=== PATIENT | male | born 1945 | race Caucasian/White ===

== ENCOUNTER 2019-12-19 09:56 | Inpatient (IN) | payer OTHER ==
[2019-12-19] MEDS ORDERED: Naloxone HCl 2 mg/2 ml Syringe ONE (10:14)
[2019-12-19 10:33] LABS: #Basophils 0.1 thou/uL (0.0-0.2); #Monocytes 1.4 thou/uL (0.11-0.59); #Neutrophils 11.8 thou/uL (1.40-6.50); %Basophils 0.5 % (0.0-1.0); %Eosinophils 0.3 % (0.0-10.0); %Lymphocytes 7.2 % (21.0-51.0); %Monocytes 9.5 % (0.0-10.0); %Neutrophils 82.6 % (42.0-75.0); Hemoglobin 13.3 g/dL (14.0-18.0); Mean Corpuscular HGB CONC 34.4 g/dL (32.0-36.0); Mean Corpuscular Hemoglobin 32.6 pg (27.0-31.0); Mean Corpuscular Volume 94.8 fL (78.0-98.0); Mean Platelet Volume 7.1 fL (7.4-10.4); Platelet Count 209 thou/uL (130-400); RBC Distribution Width 14.2 % (11.5-14.5); Red Blood Cell (RBC) Count 4.08 mill/uL (4.70-6.10); White Blood Cell (WBC) Count 14.3 thou/uL (4.8-10.8)
--- NOTE | 2019-12-19 10:43 | RAD ---
CHEST ONE VIEW: History: Hypoxia. Comparison: CT chest for reference, from 2016. FINDINGS: Heart size is enlarged. Abnormal opacities throughout the lungs, greatest in the lower lobes, concern ing for underlying pulmonary fibrosis. No acute osseous abnormality. IMPRESSION: 1. Moderate cardiomegaly. 2. Background pulmonary fibrosis concerning for superimposed lower lobe pneumonia. Follow up two view s chest in full inspiration recommended. POS: [facility]
[2019-12-19] MEDS ORDERED: methylPREDNISolone Sod Succ/PF 125 MG/2 ML VIAL ONE (10:53)
[2019-12-19] MEDS ORDERED: Azithromycin 500 MG VIAL ONE (10:53)
[2019-12-19] MEDS ORDERED: cefTRIAXone\\ROCEPHIN 2 GM VIAL ONE (10:53)
[2019-12-19 10:55] LABS: ALT (SGPT) 11 U/L (8-55); AST (SGOT) 30 U/L (5-34); Albumin 3.8 g/dL (3.4-4.8); Alkaline Phosphatase 74 U/L (40-110); Anion Gap 13 mmol/L (10-20); BUN (Urea Nitrogen) 20 mg/dL (8.4-25.7); Bilirubin, Total 1.2 mg/dL (0.2-1.2); Calc. Creatinine Clearance 0 mL/min (70-130); Calcium 8.9 mg/dL (7.8-10.44); Carbon Dioxide 23 mmol/L (23-31); Chloride 108 mmol/L (98-107); Estimated GFR-MDRD 58; Globulin 3.9 g/dL (2.4-3.5); Glucose 138 mg/dL (83-110); Potassium 3.2 mmol/L (3.5-5.1); Protein, Total 7.7 g/dL (5.8-8.1); Sodium 141 mmol/L (136-145)
[2019-12-19 11:00] LABS: Actual Bicarbonate (HCO3a) 21.9 mEq/L (22-28); Analyzer IN Cardio ER; Base Excess (BEa) -1.9 mEq/L (-2.0 to +3.0); CO2 Tension 34.6 mmHg (35.0-45.0); Calcium, Ionized 1.14 mmol/L (1.12-1.30); Carboxyhemoglobin (COHb) 1.7 gm% (0.0-3.0); Hemoglobin (Hb) 13.3 g/dL (14.0-18.0); Potassium - ABG Lab 3.14 mmol/L (3.70-5.30); pH, Arterial 7.42 (7.35-7.45)
[2019-12-19 11:02] LABS: Puncture Site RRA
[2019-12-19 11:17] LABS: CKMB 0.8 ng/mL (0-6.6)
[2019-12-19] MEDS ORDERED: Rocuronium Bromide 10 MG/ML (10ML VIAL) ONE (11:38)
[2019-12-19] MEDS ORDERED: Aspirin Chewable 81 MG TAB ONE (12:25)
[2019-12-19] MEDS ORDERED: Senokot S 8.6-50 MG TAB PO PRN (12:29)
[2019-12-19] MEDS ORDERED: Ondansetron ODT 4 MG TAB PO PRN (12:29)
[2019-12-19] MEDS ORDERED: Potassium Citrate 10 MEQ TAB PO SCH (13:30)
[2019-12-19 13:43] LABS: Lactic Acid 3.3 mmol/L (0.5-2.2)
[2019-12-19 16:06] LABS: Bacteria/HPF None Seen HPF (None Seen); Bilirubin Negative (Negative); Blood, Urine Negative (Negative); Clarity Clear (Clear); Glucose, Urine (Dipstick) Normal (Negative); Leukocyte Negative Leu/uL (Negative); Nitrite Negative (Negative); Protein, Urine (Dipstick) 50 mg/dL (Neg-Trace); RBC/HPF 0-3 HPF (0-3); Squamous Epithelial None Seen HPF (0-3); Urobilinogen Normal mg/dL (Less than 2); WBC/HPF 0-3 HPF (0-3)
[2019-12-19 17:51] LABS: Troponin I 0.022 ng/mL (< 0.028)
[2019-12-19] MEDS ORDERED: Lorazepam 2 MG/ML VIAL SLOW IVP SCH (18:00)
[2019-12-19] MEDS: methylPREDNISolone Sod Succ 40 MG VIAL IVP SCH (18:06)
[2019-12-19] MEDS ORDERED: Lorazepam 2 MG/ML VIAL SLOW IVP PRN (20:19)
--- NOTE | 2019-12-19 20:43 | HP ---
CHIEF COMPLAINT: Respiratory failure. HISTORY OF PRESENT ILLNESS: A 74-year-old male with a history of recent pneumonia treated in the beginning of November at [place] and discharged with Augmentin for 10 days. Since then, his symptoms did not resolve completely. Two days ago, he went to attend an 88-year-old lady's birthday. After he returned back, he felt quite congested and yesterday, he had some postnasal drip and last evening, had a subjective temperature of 100.8. He is on home oxygen at 2 L as needed. He usually goes to [place] at [place] since his home is close by and his son works as EMS, he has been brought here. When he came to the ER, he was hypoxic at 60% with 2 L. His lactic acid was elevated at 2.6 [place] [id number] and tachypnea. Sepsis alert was called. Chest x-ray showed pulmonary fibrosis with superimposed lower lobe pneumonia bilaterally. Flu test was not done. The patient will be admitted in IMCU and will continue with the BiPAP. The patient does have an appointment with the mine administrator supervisor in [place] for pulmonary function test in 3 weeks' time. He has not had any formal sleep study done in the past. REVIEW OF SYSTEMS: Denies any headache or blurriness. No recent productive cough. No chest pain, orthopnea, PND, or lower extremity edema. He denies nausea, vomiting, abdominal pain, constipation, diarrhea, hematuria, dysuria, or hematochezia. Rest of review of systems is negative. ALLERGIES: HE IS ALLERGIC TO MOXIFLOXACIN. PAST MEDICAL HISTORY: Most of the information gathered from the . The patient goes to [place]. He is not diabetic. No history of ND or stroke in the past. He does have PTSD. HOME MEDICATIONS: 1. Venlafaxine 75 mg daily. 2. Coenzyme Q10. 3. Thiamine B1. 4. Pregabalin. 5. Lyrica 400 mg twice a day. 6. Omeprazole 20 mg daily. 7. Niacin. 8. Multivitamin. 9. [place] as needed. 10. Proscar 5 mg daily. 11. Fexofenadine 1 tablet daily. 12. Diltiazem 360 mg daily. 13. Flexeril as needed. 14. Lipitor 20 mg daily. SOCIAL HISTORY: He quit smoking when he was very young. No alcohol use. Lives with his locally. FAMILY HISTORY: Father had asbestosis. Mother had breast cancer. PHYSICAL EXAMINATION: GENERAL: The patient is alert and oriented. He is on BiPAP currently. CARDIAC: Has congestion and upper respiratory infection. CARDIOVASCULAR: Regular rate and rhythm without murmurs, rubs, or gallops. He has significant wheezing. ABDOMEN: A little protuberant, but soft, nontender, nondistended. Good bowel sounds. EXTREMITIES: Did not appreciate any pitting edema or rash. LABORATORY DATA: His white count is 14.3, hemoglobin 13.3. Platelets 209,000. Potassium 3.2, sodium 141, creatinine 1.22. Lactic acid 2.6. His troponin is 0.04, second set 0.04. A chest x-ray again, multilobar infiltrate. IMPRESSION AND PLAN: 1. This is a 74-year-old male with a history of posttraumatic stress disorder, presenting with acute hypoxic respiratory failure. 2. Severe sepsis secondary to respiratory failure with pneumonia. 3. Hypoxia with saturations in the 60s despite being on 2 L oxygen. 4. Leukocytosis. 5. Mild hypokalemia. 6. Elevated troponin/abnormal troponin/metabolic mismatch type 2 demand ischemia. The patient will be admitted in the intermediate care unit. We will wean off the BiPAP. Ceftriaxone and Zithromax to cover for community-acquired pneumonia. We will be checking the flu. He had symptoms of congestion for the last 2 days. So, may not be eligible to take Tamiflu, but will follow through. No cultures have been done. We will follow the clinical progression. Once he is stable, he needs followup with a mine administrator supervisor for sleep study as well as pulmonary function test. Deep vein thrombosis prophylaxis, Lovenox. Full code. Job ID: [id number] [facility]
[2019-12-19 20:48] LABS: Actual Bicarbonate (HCO3a) 22.9 mEq/L (22-28); Base Excess (BEa) -1.9 mEq/L (-2.0 to +3.0); Calcium, Ionized 1.18 mmol/L (1.12-1.30); Carboxyhemoglobin (COHb) 1.8 gm% (0.0-3.0); Hemoglobin (Hb) 13.3 g/dL (14.0-18.0); Potassium - ABG Lab 3.65 mmol/L (3.70-5.30); pH, Arterial 7.39 (7.35-7.45)
[2019-12-19 20:51] LABS: Puncture Site RR
[2019-12-19] MEDS ORDERED: Furosemide 40 MG/4 ML VIAL IVP SCH (21:03)
[2019-12-19] MEDS ORDERED: Morphine 4 MG/ML VIAL ONE (21:06)
[2019-12-19] MEDS ORDERED: Morphine 4 MG/ML VIAL SLOW IVP PRN (21:07)
[2019-12-19] MEDS: Pregabalin 50 MG CAP PO SCH (22:00)
[2019-12-19] MEDS: Cefepime 2 GM in Sodium Chloride 0.9% 100 ML IVPB SCH (22:05)
[2019-12-19] MEDS: hydrALAZINE 20 MG/ML VIAL SLOW IVP PRN (22:38)
[2019-12-19] MEDS ORDERED: Ventilator Sedation Protocol 1 EACH FS ONE (23:51)
[2019-12-20] MEDS ORDERED: DISCONTINUE PREVIOUS NARCOTIC PAIN MEDICATIONS AND BENZODIAZEPINES FS SCH (00:05)
[2019-12-20] MEDS ORDERED: Morphine 2 MG/ML SYRINGE SLOW IVP PRN (00:05)
[2019-12-20] MEDS ORDERED: Fentanyl BOLUS 250 ML IVPB PRN (00:05)
[2019-12-20] MEDS ORDERED: Propofol BOLUS 1,000 MG/100 ML VIAL IV PRN (00:05)
[2019-12-20] MEDS: methylPREDNISolone Sod Succ 40 MG VIAL IVP SCH ×5 (00:55→23:04)
[2019-12-20 01:13] LABS: Actual Bicarbonate (HCO3a) 23.7 mEq/L (22-28); Base Excess (BEa) -2.5 mEq/L (-2.0 to +3.0); CO2 Tension 46.5 mmHg (35.0-45.0); Calcium, Ionized 1.13 mmol/L (1.12-1.30); Carboxyhemoglobin (COHb) 1.9 gm% (0.0-3.0); Hemoglobin (Hb) 12.6 g/dL (14.0-18.0); O2 Tension (PaO2) 100.2 mmHg (> 70.0); pH, Arterial 7.33 (7.35-7.45)
[2019-12-20 01:24] LABS: ALV-art Gradient 483.375 (0-20); Puncture Site RR
[2019-12-20] MEDS ORDERED: Midazolam HCl 2 mg/2 ml Vial SLOW IVP SCH (02:00)
[2019-12-20] MEDS ORDERED: Rocuronium Bromide 10 MG/ML (10ML VIAL) IVP SCH (02:15)
[2019-12-20] MEDS: Rocuronium Bromide 10 MG/ML (10ML VIAL) IVP PRN ×5 (02:50→22:01)
[2019-12-20] MEDS ORDERED: Midazolam HCl 2 mg/2 ml Vial ONE (03:11)
[2019-12-20] MEDS: Propofol 1,000 MG/100 ML VIAL IV PRN ×3 (05:51→20:50)
[2019-12-20 05:53] LABS: Hemoglobin 12.1 g/dL (14.0-18.0); Mean Corpuscular HGB CONC 33.8 g/dL (32.0-36.0); Mean Corpuscular Hemoglobin 32.5 pg (27.0-31.0); Mean Corpuscular Volume 96.2 fL (78.0-98.0); Mean Platelet Volume 7.4 fL (7.4-10.4); Platelet Count 173 thou/uL (130-400); RBC Distribution Width 14.1 % (11.5-14.5); Red Blood Cell (RBC) Count 3.72 mill/uL (4.70-6.10); White Blood Cell (WBC) Count 18.2 thou/uL (4.8-10.8)
[2019-12-20 06:26] LABS: Anion Gap 12 mmol/L (10-20); BUN (Urea Nitrogen) 24 mg/dL (8.4-25.7); Calc. Creatinine Clearance 76 mL/min (70-130); Calcium 8.3 mg/dL (7.8-10.44); Carbon Dioxide 25 mmol/L (23-31); Chloride 109 mmol/L (98-107); Estimated GFR-MDRD 71; Glucose 162 mg/dL (83-110); Potassium 3.7 mmol/L (3.5-5.1); Sodium 142 mmol/L (136-145)
[2019-12-20 07:01] LABS: Band 19 % (5-11); Eosinophils 1 % (0-10); Lymphocytes 1 % (21-51); MDiff Complete? YES; Monocytes 2 % (0-10); Neutrophil 77 % (42-75)
[2019-12-20 07:44] LABS: Actual Bicarbonate (HCO3a) 25.4 mEq/L (22-28); Base Excess (BEa) 0.2 mEq/L (-2.0 to +3.0); CO2 Tension 43.4 mmHg (35.0-45.0); Carboxyhemoglobin (COHb) 1.9 gm% (0.0-3.0); Hemoglobin (Hb) 12.2 g/dL (14.0-18.0); O2 Tension (PaO2) 84.2 mmHg (> 70.0); Potassium - ABG Lab 3.57 mmol/L (3.70-5.30); pH, Arterial 7.39 (7.35-7.45)
[2019-12-20 07:48] LABS: Puncture Site RRAD
[2019-12-20] MEDS ORDERED: Prevnar 13-Val Conj/PF 0.5 ML SYRINGE IM ONE (09:00)
[2019-12-20] MEDS ORDERED: Enoxaparin Sodium 40 MG/0.4 ML SYRINGE SC SCH (09:00)
[2019-12-20] MEDS ORDERED: Bupropion 150 MG SR TAB PO SCH (09:00)
[2019-12-20] MEDS ORDERED: FLU VACC TS2019-20(65YR UP)/PF 180 MCG/0.5 ML SYRINGE IM ONE (09:00)
--- NOTE | 2019-12-20 09:22 | CON ---
DATE OF CONSULTATION: 12/19/2019 HISTORY OF PRESENT ILLNESS: David James is a 74-year-old male who is primarily cared for at the [place]. I spent a great deal of time taking a history from the and it sounds like Mr. James has some degree of pulmonary fibrosis, although she has been told that his testing has been stable for three years. He presents with a couple of days of shortness of breath. He was treated in November at the [place] for pneumonia. He never fully recovered from that. They traveled out of town to [place], I believe, to attend a birthday alliance party for a friend. He became febrile and subsequently started developing shortness of breath and was brought here and was admitted on BiPAP. PAST MEDICAL HISTORY: Otherwise, remarkable for stress disorder related to service in [place]. He has no occupational history. He was recently radiated at [facility] for prostate cancer. FAMILY HISTORY: Negative for lung disease in early age. SOCIAL HISTORY: Non contributory. REVIEW OF SYSTEMS: 10 point review of systems completed, otherwise negative. MEDICATIONS: Have been reviewed. ALLERGIES: REPORTS ALLERGIES TO MOXIFLOXACIN. PHYSICAL EXAMINATION: GENERAL: He is afebrile. Heart rate is 90, respiratory rates in the 30s, oximetry, on BiPAP is in the low 90s. HEENT: Pupils are equal. Sclerae are anicteric. NECK: Supple. LUNGS: Remarkable for diffuse crackles. HEART: Regular rhythm. No S3. ABDOMEN: Soft and nontender. EXTREMITIES: Without clubbing, cyanosis, or edema. NEURO: Grossly nonfocal. LABORATORY DATA: Sodium 141, potassium 3.2, chloride 108, bicarb 23, BUN 20, creatinine 1.22. I ordered a BNP earlier which came back 420. White count 14.3 , hemoglobin 13.3, platelets 209,000. Blood gas earlier today 7.42, CO2 of 34, pO2 of 61. This evening, 7.39, CO2 of 39, pO2 of 52. Chest radiograph shows an elevated right hemidiaphragm and a generous cardiac silhouette with increased interstitial markings at both lung bases. Reviewing old records, I found an operative report from an L1-L2 laminectomy done by Dr. Enrique in 2016, found also a chest CT in 2016, which showed an ascending aorta of 4.3 cm. His says this was worked up at the [place] and he was told he does not have an ascending aneurysm. Had coronary calcifications with an increase in interstitial markings to a mild degree back in 2016. He had gallstones and some calcified granulomas in his chest as well. IMPRESSION: Probable pulmonary fibrosis with superimposed infectious process. Antibiotics and steroids were ordered. He will continue with nebulizer treatments. He will be given a little bit of morphine for the anxiety he is experiencing wearing the BiPAP. Hopefully, we will see significant improvement overnight. __ is reasonable to give him one dose of IV Lasix and also reasonable to check an echocardiogram in the morning. This is a 50 minute consult, with greater than 50% of time spent on unit coordinating care. Job ID: [id number] [email or web address]
[2019-12-20] MEDS: Cefepime 2 GM in Sodium Chloride 0.9% 100 ML IVPB SCH ×2 (09:23→20:50)
[2019-12-20] MEDS: Atorvastatin Calcium 20 MG TAB PO SCH (10:26)
[2019-12-20] MEDS: Loratadine 10 MG TAB PO SCH (10:27)
[2019-12-20] MEDS: Finasteride 5 MG TAB PO SCH (10:27)
[2019-12-20] MEDS: Pregabalin 50 MG CAP PO SCH ×2 (10:28→20:54)
--- NOTE | 2019-12-20 10:51 | RAD ---
FRONTAL RADIOGRAPH CHEST: 12/20/2019 HISTORY: Ventilated patient. COMPARISON: 12/19/2019 FINDINGS: A new endotracheal tube is present, terminating over the tracheal air column, in proper position. The re is no pneumothorax. There is extensive worsening interstitial and alveolar opacity throughout both lungs. Multifocal new consolidative change noted within the right lung, and there is worsening multi focal consolidation within the left lung. IMPRESSION: New endotracheal tube in proper position. Extensive nonspecific worsening interstitial and alveolar o pacity throughout both lungs. This could be related to pulmonary edema, aspiration or infectious pneu monitis. POS: [facility]
[2019-12-20] MEDS: Potassium Chloride 20 MEQ TAB PO SCH (11:25)
[2019-12-20] MEDS: Lorazepam 2 MG/ML VIAL SLOW IVP PRN ×4 (11:38→21:22)
--- NOTE | 2019-12-20 12:07 | PDOC.HOSPP ---
- Subjective Subjective: Intubated. Sedated. - Objective Vital Signs & Weight: Vital Signs (12 hours) Temp Pulse Resp Pulse Ox 12/20/19 10:54 69 24 H 100 12/20/19 08:09 75 21 H 100 12/20/19 08:00 98.4 F 24 H 12/20/19 07:45 24 H 100 12/20/19 06:00 24 H 12/20/19 04:02 81 12/20/19 04:00 24 H 12/20/19 03:00 98.4 F 12/20/19 02:39 77 24 H 99 12/20/19 02:36 79 12/20/19 02:00 24 H Weight Weight 190 lb Most Recent Monitor Data Heart Rate from ECG 90 NIBP 121/86 NIBP BP-Mean 97 Respiration from ECG 24 SpO2 85 I&O: 12/19/19 12/20/19 12/21/19 06:59 06:59 06:59 Intake Total 74 Output Total 1800 115 Balance -1726 -115 Result Diagrams: 12/20/19 05:37 12/20/19 05:37 Radiology Reviewed by me: Yes Hospitalist ROS - Review of Systems ROS unobtainable: due to endotracheal tube - Medication Medications: Active Medications Generic Name Dose Route Start Last Admin Trade Name Freq PRN Reason Stop Dose Admin Albuterol/Ipratropium 3 ml 12/19/19 18:30 12/20/19 10:54 Duoneb IPPB 3 ml [id number] JOSESITO Administration Atorvastatin Calcium 20 mg 12/20/19 09:00 12/20/19 10:26 Lipitor PO Not Given DAILY [facility] Cholecalciferol 1,000 units 12/20/19 09:00 12/20/19 10:26 Vitamin D3 PO Not Given DAILY [facility] Diltiazem HCl 360 mg 12/20/19 09:00 12/20/19 10:26 Cardizem Cd PO Not Given DAILY [facility] Enoxaparin Sodium 40 mg 12/20/19 09:00 12/20/19 09:19 Lovenox SC 40 mg 0900 JOSESITO Administration Finasteride 5 mg 12/20/19 09:00 12/20/19 10:27 Proscar PO Not Given DAILY [facility] Hydralazine HCl 10 mg 12/19/19 17:53 12/19/19 22:38 Apresoline SLOW IVP 10 mg Q6H PRN Administration SBP >150 Cefepime HCl 2 gm/ Sodium 100 mls @ 200 mls/hr 12/19/19 21:00 12/20/19 09:23 Chloride IVPB 100 mls Q12HR JOSESITO Administration Loratadine 10 mg 12/20/19 09:00 12/20/19 10:27 Claritin PO Not Given DAILY [facility] Lorazepam 2 mg 12/20/19 00:05 12/20/19 11:38 Ativan SLOW IVP 01/19/20 00:05 2 mg Q1H PRN Administration Breakthrough agitation Methylprednisolone Sodium Succinate 40 mg 12/19/19 18:00 12/20/19 05:52 Solu-Medrol IVP 40 mg Q6HR JOSESITO Administration Pantoprazole Sodium 40 mg 12/20/19 09:00 12/20/19 10:28 Protonix PO Not Given DAILY [facility] Potassium Chloride 40 meq 12/20/19 11:15 12/20/19 11:25 K-Dur PO Not Given 1115 [facility] Pregabalin 400 mg 12/19/19 21:00 12/20/19 10:28 Lyrica PO Not Given BID [facility] Propofol 1,000 mg 12/20/19 00:05 12/20/19 05:51 Diprivan IV 01/19/20 00:05 1,000 mg INF PRN Administration TO ACHIEVE GOAL RASS Protocol Rocuronium [place] 100 mg 12/20/19 00:17 12/20/19 11:57 Zemuron IVP 100 mg Q1H PRN Administration Agitation Venlafaxine HCl 75 mg 12/20/19 09:00 12/20/19 10:29 Effexor PO Not Given DAILY [facility] - Exam General Appearance: NAD Eye: PERRL ENT: normocephalic atraumatic, moist mucosa Neck: supple, symmetric, no lymphadenopathy Heart: no murmur, no gallops, no rubs Respiratory: no rales, normal chest expansion, no tachypnea, rhonchi, wheezes Gastrointestinal: soft, non-tender, non-distended, normal bowel sounds, no guarding, no rigidity Extremities: no edema Skin: no lesions, no rashes Neurological: cranial nerve grossly intact, no focal deficits Musculoskeletal: normal tone Psychiatric: not oriented Hosp A/P (1) Acute respiratory failure Code(s): J96.00 - ACUTE RESPIRATORY FAILURE, UNSP W HYPOXIA OR HYPERCAPNIA Status: Acute (2) Shortness of breath Code(s): R06.02 - SHORTNESS OF BREATH Status: Acute (3) PNA (pneumonia) Code(s): J18.9 - PNEUMONIA, UNSPECIFIED ORGANISM Status: Acute (4) Depression Code(s): F32.9 - MAJOR DEPRESSIVE DISORDER, SINGLE EPISODE, UNSPECIFIED Status : Acute (5) HLD (hyperlipidemia) Code(s): E78.5 - HYPERLIPIDEMIA, UNSPECIFIED Status: Acute (6) BPH (benign prostatic hyperplasia) Code(s): N40.0 - BENIGN PROSTATIC HYPERPLASIA WITHOUT LOWER URINRY TRACT SYMP Status: Acute (7) HTN (hypertension) Code(s): I10 - ESSENTIAL (PRIMARY) HYPERTENSION Status: Acute - Plan Plan: intensive care unit pulmonology/critical-care consultation, recommendations appreciated IV antibiotics IV steroids breathing treatments spontaneous breathing trial when able sedation/pain control continue other home medications as able blood pressure control blood sugar control G.I. prophylaxis DVT prophylaxis
[2019-12-20] MEDS ORDERED: Sodium Chloride 0.9% (PF) 10 ML VIAL FS PRN (15:01)
--- NOTE | 2019-12-20 16:04 | CON ---
DATE OF CONSULTATION: 12/20/2019 REASON FOR CONSULTATION: Respiratory failure. HISTORY OF PRESENT ILLNESS: Mr. James is a pleasant 74-year-old white gentleman, who comes to the hospital for shortness of breath. He was treated for pneumonia at [facility] in November. He was sent home with a 10-day course of Augmentin, which he finished recently. The , who is giving me the story as Mr. James is intubated and cannot provide any history, tells me that his symptoms never completely went away and he was feeling very congested yesterday. They went to [place] recently for celebration of some sort. He felt congested and had a fever of 100.8. He was getting hypoxic, so he was brought into the hospital for this. Initially, his oxygen level was 60% and BiPAP would not make it go above 70, so he had to be intubated emergently. PAST MEDICAL HISTORY: 1. PTSD from his service in [place]. 2. Hypertension. 3. Depression. 4. Seasonal allergies. 5. Hyperlipidemia. OUTPATIENT MEDICATIONS: 1. Flonase. 2. Finasteride (Proscar). 3. [place]. 4. Diltiazem 360 mg CD daily. 5. Flexeril. 6. Vitamin D3. 7. Wellbutrin. 8. Lipitor 20 mg daily. 9. Vitamin B1. 10. Lyrica. 11. Omeprazole. 12. Fish oil. 13. Niaspan. 14. Multivitamin daily. 15. [place] p.r.n. 16. Venlafaxine. 17. CoQ10. ALLERGIES: MOXIFLOXACIN GIVES HIM HIVES. PAST SURGICAL HISTORY: None apparent. FAMILY HISTORY: Noncontributory. REVIEW OF SYSTEMS: Unobtainable as the patient is sedated and intubated. PHYSICAL EXAMINATION: VITAL SIGNS: Temperature 98.1, pulse 73, respiratory rate 24, saturating 95% on 50% FiO2, and blood pressure 108/70. GENERAL: Sedated and intubated. NECK: Supple. LUNGS: Have diffuse crackles bilaterally. CARDIOVASCULAR: Normal S1 and S2. No S3 or S4. No audible murmurs. ABDOMEN: Soft. Positive bowel sounds. EXTREMITIES: No edema. SKIN: Warm and dry. LABORATORY DATA: Laboratory work was reviewed. White count of 14, up to 18; hemoglobin of 13; hematocrit of 38; platelet count of 209. Blood gas was reviewed. Chemistries were reviewed and unremarkable. Lactic acid was 3.3. BNP of 420. Troponins were 0.04, 0.04, and 0.02. UA was unremarkable. Chest x-ray was reviewed and it showed worsening of interstitial and alveolar opacity on both lungs related to pulmonary edema, aspiration or infectious pneumonitis. At the time of intubation yesterday, Dr. Ibarra tells me he had a lot of blood in his bronchial tree. ASSESSMENT: 1. Acute hypoxic respiratory insufficiency. 2. Severe sepsis. 3. Possible multilobar pneumonia. 4. Leukocytosis. 5. Type 2 demand type of myocardial infarction with mildly elevated troponins. 6. Hypertension on arrival. PLAN: 1. Echocardiogram shows normal LV function with only grade 1 diastolic dysfunction. His RV is mildly dilated, but normal RV systolic function. RVSP was normal at 27 mmHg and his aorta is upper limits of normal at 4.0 cm. 2. At this time, I do not think his chest x-ray is related to his heart. Most likely, this is related to acute infectious process and some probable alveolar hemorrhage from the infectious process as well. 3. We would continue to support for now. 4. IV antibiotics per primary team and critical care team. 5. He will need gentle diuresis as long as his blood pressure will allow. Thank you for letting us participate in the care of your patient. We will continue to follow. TIME SPENT: Forty-five minutes of critical care time. Job ID: [id number]
--- NOTE | 2019-12-20 19:38 | PRG ---
DATE OF SERVICE: 12/20/2019 SUBJECTIVE: Mr. James was intubated just after midnight. He has improved significantly from a gas exchange standpoint. Blood pressure is controlled with the help of propofol. OBJECTIVE: VITAL SIGNS: Blood pressure 120/76, heart rate is in the 70s, respiratory rate is in the 20s. LUNGS: Remarkable for coarse equal breath sounds. HEART: Regular rhythm. ABDOMEN: Soft. EXTREMITIES: Without edema. LABORATORY DATA: White count 18.2, hemoglobin 12.1, platelets 173. Sodium 142, potassium 3.7, chloride 109, bicarb 25, BUN 24, creatinine 1.02. PH 7.39, CO2 43, and PO2 84, as on an FiO2 of 60% this morning. He was on 90% when I left last night. DIAGNOSTIC DATA: Chest radiograph shows bilateral patchy alveolar infiltrate. IMPRESSION: Pulmonary hemorrhage associated with hypertension versus pulmonary hemorrhage associated with infectious process. I doubt he has a vasculitis. We will continue supportive care. He appears to be improving. It will likely be several days before we start talking about weaning. CRITICAL CARE TIME: 30 minutes. Job ID: [id number]
--- NOTE | 2019-12-20 23:29 | PDOC.EVN ---
Event Note - Event Note Event Note: RN called - 11/06 [facility] bacteremia PLAN: Will add IV Vancomycin
[2019-12-20] MEDS ORDERED: Vancomycin HCl 1 GM in Premix Bag 1 BAG IVPB SCH (23:30)
[2019-12-21] MEDS: hydrALAZINE 20 MG/ML VIAL SLOW IVP PRN ×2 (02:27→23:06)
[2019-12-21] MEDS: Lorazepam 2 MG/ML VIAL SLOW IVP PRN ×5 (02:35→20:27)
[2019-12-21] MEDS: Rocuronium Bromide 10 MG/ML (10ML VIAL) IVP PRN ×5 (02:35→20:26)
[2019-12-21] MEDS: Propofol 1,000 MG/100 ML VIAL IV PRN ×3 (02:55→20:26)
[2019-12-21 04:11] LABS: Anion Gap 11 mmol/L (10-20); BUN (Urea Nitrogen) 36 mg/dL (8.4-25.7); Calc. Creatinine Clearance 81 mL/min (70-130); Calcium 8.7 mg/dL (7.8-10.44); Carbon Dioxide 22 mmol/L (23-31); Chloride 111 mmol/L (98-107); Estimated GFR-MDRD 76; Glucose 151 mg/dL (83-110); Potassium 3.4 mmol/L (3.5-5.1); Sodium 141 mmol/L (136-145)
[2019-12-21 04:24] LABS: Band 25 % (5-11); Eosinophils 1 % (0-10); Lymphocytes 3 % (21-51); MDiff Complete? YES; Mean Corpuscular HGB CONC 34.7 g/dL (32.0-36.0); Mean Corpuscular Hemoglobin 32.9 pg (27.0-31.0); Mean Platelet Volume 7.6 fL (7.4-10.4); Monocytes 2 % (0-10); Neutrophil 69 % (42-75); Platelet Count 155 thou/uL (130-400); Platelet Morphology Comment Appears Adequate; Polychromasia SLIGHT = 2-3 cells (100X) (0-2/hpf); RBC Distribution Width 13.9 % (11.5-14.5); Red Blood Cell (RBC) Count 3.35 mill/uL (4.70-6.10); White Blood Cell (WBC) Count 14.4 thou/uL (4.8-10.8)
[2019-12-21] MEDS: methylPREDNISolone Sod Succ 40 MG VIAL IVP SCH ×4 (05:23→23:06)
[2019-12-21 07:23] LABS: Actual Bicarbonate (HCO3a) 24.3 mEq/L (22-28); Base Excess (BEa) -0.3 mEq/L (-2.0 to +3.0); CO2 Tension 39.5 mmHg (35.0-45.0); Calcium, Ionized 1.22 mmol/L (1.12-1.30); Carboxyhemoglobin (COHb) 1.8 gm% (0.0-3.0); Hemoglobin (Hb) 11.6 g/dL (14.0-18.0); O2 Tension (PaO2) 86.5 mmHg (> 70.0); Potassium - ABG Lab 3.58 mmol/L (3.70-5.30); pH, Arterial 7.41 (7.35-7.45)
[2019-12-21] MEDS: Atorvastatin Calcium 20 MG TAB PO SCH (08:20)
[2019-12-21] MEDS: Finasteride 5 MG TAB PO SCH (08:21)
[2019-12-21] MEDS: Pregabalin 50 MG CAP PO SCH ×2 (08:21→19:54)
[2019-12-21] MEDS: Loratadine 10 MG TAB PO SCH (08:21)
[2019-12-21] MEDS: Enoxaparin Sodium 30 MG/0.3 ML SYRINGE SC SCH (08:29)
[2019-12-21] MEDS: Pantoprazole 40 MG VIAL IVP SCH (08:29)
[2019-12-21 08:36] LABS: Puncture Site RRAD
[2019-12-21 08:38] LABS: ALV-art Gradient 220.625 (0-20)
--- NOTE | 2019-12-21 09:05 | RAD ---
PORTABLE SEMIUPRIGHT FRONTAL CHEST RADIOGRAPH: 12/21/2019 HISTORY: Ventilated patient. COMPARISON: 12/20/2019 FINDINGS: Stable endotracheal tube. There is extensive nonspecific interstitial and alveolar opacity throughout both lungs, not significantly changed in distribution when compared to the prior examination. Aerati on has probably slightly improved within the left base and the right upper lobe. IMPRESSION: 1. Stable endotracheal tube. 2. Nonspecific diffuse interstitial and alveolar opacities as above. POS: [facility]
[2019-12-21] MEDS: Cefepime 2 GM in Sodium Chloride 0.9% 100 ML IVPB SCH ×2 (09:56→20:26)
--- NOTE | 2019-12-21 10:09 | PDOC.HOSPP ---
- Subjective Encounter Date: 12/21/19 Encounter Time: 10:00 Subjective: f/u for acute resp failure, pulmonary hemorrhage, sepsis and PNA on current Vanc /Cefepime. Remains on [facility] ventilation and sedate with Propofol. - Objective Vital Signs & Weight: Vital Signs (12 hours) Temp Pulse Resp BP Pulse Ox 12/21/19 08:00 98.0 F 12/21/19 06:00 24 H 12/21/19 04:00 24 H 12/21/19 03:00 98.1 F 12/21/19 02:55 75 12/21/19 02:52 74 24 H 100 12/21/19 02:27 71 152/89 H 12/21/19 02:00 24 H 12/21/19 00:42 68 12/21/19 00:00 24 H 12/20/19 23:00 97.8 F 12/20/19 22:26 73 12/20/19 22:24 73 24 H 98 Weight Admit Weight 190 lb Weight 175 lb 11.335 oz Most Recent Monitor Data Heart Rate from ECG 92 NIBP 136/76 NIBP BP-Mean 96 Respiration from ECG 31 SpO2 100 I&O: 12/20/19 12/21/19 12/22/19 06:59 06:59 06:59 Intake Total 74 1388 Output Total 1800 1240 205 Balance -1726 148 -205 Result Diagrams: 12/21/19 03:39 12/21/19 03:39 Radiology Reviewed by me: Yes (PCXR - diffuse infiltrates, slight improvement over prior, ETT in place) EKG Reviewed by me: Yes (Tele - SR) Hospitalist ROS - Medication Medications: Active Medications Generic Name Dose Route Start Last Admin Trade Name Freq PRN Reason Stop Dose Admin Albuterol/Ipratropium 3 ml 12/19/19 18:30 12/21/19 02:52 Duoneb IPPB 3 ml [id number] JOSESITO Administration Atorvastatin Calcium 20 mg 12/20/19 09:00 12/21/19 08:20 Lipitor PO Not Given DAILY [facility] Cholecalciferol 1,000 units 12/20/19 09:00 12/21/19 08:21 Vitamin D3 PO Not Given DAILY [facility] Diltiazem HCl 360 mg 12/20/19 09:00 12/21/19 08:21 Cardizem Cd PO Not Given DAILY [facility] Enoxaparin Sodium 30 mg 12/21/19 09:00 12/21/19 08:29 Lovenox SC 30 mg 0900 [facility] Administration Finasteride 5 mg 12/20/19 09:00 12/21/19 08:21 Proscar PO Not Given DAILY [facility] Hydralazine HCl 10 mg 12/19/19 17:53 12/21/19 02:27 Apresoline SLOW IVP 10 mg Q6H PRN Administration SBP >150 Cefepime HCl 2 gm/ Sodium 100 mls @ 200 mls/hr 12/19/19 21:00 12/21/19 09:56 Chloride IVPB 100 mls Q12HR [facility] Administration Loratadine 10 mg 12/20/19 09:00 12/21/19 08:21 Claritin PO Not Given DAILY [facility] Lorazepam 2 mg 12/20/19 00:05 12/21/19 08:29 Ativan SLOW IVP 01/19/20 00:05 2 mg Q1H PRN Administration Breakthrough agitation Methylprednisolone Sodium Succinate 40 mg 12/19/19 18:00 12/21/19 05:23 Solu-Medrol IVP 40 mg Q6HR [facility] Administration Pantoprazole Sodium 40 mg 12/21/19 09:00 12/21/19 08:29 Protonix IVP 40 mg DAILY [facility] Administration Potassium Chloride 40 meq 12/20/19 11:15 12/20/19 11:25 K-Dur PO Not Given 1115 [facility] Pregabalin 400 mg 12/19/19 21:00 12/21/19 08:21 Lyrica PO Not Given BID [facility] Propofol 1,000 mg 12/20/19 00:05 12/21/19 02:55 Diprivan IV 01/19/20 00:05 1,000 mg INF PRN Administration TO ACHIEVE GOAL RASS Protocol Rocuronium [place] 100 mg 12/20/19 00:17 12/21/19 08:30 Zemuron IVP 100 mg Q1H PRN Administration Agitation Sodium Chloride 10 ml 12/20/19 21:00 12/21/19 08:30 Flush - Normal Saline IVF 10 ml Q12HR [facility] Administration Venlafaxine HCl 75 mg 12/20/19 09:00 12/21/19 08:21 Effexor PO Not Given DAILY [facility] - Exam General - other findings: sedate on mech vent ENT: no oropharyngeal lesions ENT - other findings: ETT in place Neck: supple, symmetric, no JVD Heart: RRR, no murmur, no rubs, normal peripheral pulses Respiratory - other findings: diminished sounds bilat, occasional rhonchi Gastrointestinal: soft, non-tender, non-distended, normal bowel sounds, no palpable masses Extremities: no cyanosis, no clubbing, no edema Skin: normal turgor, no lesions Neurological: no new deficit Psychiatric: somnolent, lethargic Psychiatric - other findings: sedate on mech vent Hosp A/P (1) Acute respiratory failure with hypoxia Code(s): J96.01 - ACUTE RESPIRATORY FAILURE WITH HYPOXIA Status: Acute Plan: Continue SIMV titrating to clinical response, remains on 50% FIO2 (2) Severe sepsis Code(s): A41.9 - SEPSIS, UNSPECIFIED ORGANISM; R65.20 - SEVERE SEPSIS WITHOUT SEPTIC SHOCK Status: Acute Plan: Suspected due to PNA, continue Cefepime/Vanc, await final blood cx results (3) Bacterial pneumonia Code(s): J15.9 - UNSPECIFIED BACTERIAL PNEUMONIA Status: Acute Plan: Suspected, see above, continue IV abx, Duonebs, mech ventilation (4) Hypokalemia Code(s): E87.6 - HYPOKALEMIA Status: Acute Plan: KCL 40meq IV x 1 now, serial K+ monitoring (5) HTN (hypertension) Code(s): I10 - ESSENTIAL (PRIMARY) HYPERTENSION Status: Chronic Qualifiers: Hypertension type: essential hypertension Qualified Code(s): I10 - Essential (primary) hypertension Plan: Improved with Diltiazem and Propofol for sedation, serial monitoring - Plan continue antibiotics, respiratory therapy, DVT proph w/SCDs Continue critical support SIMV for resp failure PCXR daily Add KCL 40meq IV Start TF's with Jevity 1.2 Continue Cefepime/Vanc Await final blood cx results AM lab: BMP, CBC, ABG
[2019-12-21] MEDS: Potassium Chloride 20 MEQ TAB PO SCH (10:15)
[2019-12-21] MEDS ORDERED: Potassium Chloride 40 MEQ in Sodium Chloride 0.9% 250 ML 250 ML IVPB SCH (10:30)
[2019-12-21] MEDS: Vancomycin HCl 1.25 GM in Sodium Chloride 0.9% 250 ML 250 ML IVPB SCH ×2 (11:29→23:14)
--- NOTE | 2019-12-21 16:03 | PDOC.CPN ---
- Subjective Date: 12/21/19 Time: 16:00 Interval history: Remains sedated intubated. - Review of Systems ROS unobtainable: due to endotracheal tube - Objective Allergies/Adverse Reactions: Allergies Allergy/AdvReac Type Severity Reaction Status Date / Time moxifloxacin HCl Allergy Hives Verified 06/13/16 12:35 [From Avelox] Visit Medications: Current Medications Acetaminophen (Tylenol) 650 mg PO Q4H PRN PRN Reason: Headache/Fever/Mild Pain (1-3) Albuterol/Ipratropium (Duoneb) 3 ml IPPB [id number] [facility] Last Admin: 12/21/19 14:43 Dose: 3 ml Atorvastatin Calcium (Lipitor) 20 mg PO DAILY [facility] Last Admin: 12/21/19 08:20 Dose: Not Given Cholecalciferol (Vitamin D3) 1,000 units PO DAILY [facility] Last Admin: 12/21/19 08:21 Dose: Not Given Diltiazem HCl (Cardizem Cd) 360 mg PO DAILY [facility] Last Admin: 12/21/19 08:21 Dose: Not Given Enoxaparin Sodium (Lovenox) 30 mg SC 0900 [facility] Last Admin: 12/21/19 08:29 Dose: 30 mg Finasteride (Proscar) 5 mg PO DAILY [facility] Last Admin: 12/21/19 08:21 Dose: Not Given Hydralazine HCl (Apresoline) 10 mg SLOW IVP Q6H PRN PRN Reason: SBP >150 Last Admin: 12/21/19 02:27 Dose: 10 mg Cefepime HCl 2 gm/ Sodium (Chloride) 100 mls @ 200 mls/hr IVPB Q12HR [facility] Last Admin: 12/21/19 09:56 Dose: 100 mls Fentanyl Citrate 2,000 mcg/ (Sodium Chloride) 100 mls @ 0 mls/hr IV INF [facility]; Protocol Stop: 01/19/20 00:05 Fentanyl Citrate (Fentanyl Bolus) 250 mls @ 0 mls/hr IVPB PRN PRN PRN Reason: Breakthrough pain/agitation Stop: 01/19/20 00:05 Nicardipine HCl 25 mg/ Sodium (Chloride) 250 mls @ 0 mls/hr IVPB INF [facility]; Protocol Vancomycin HCl 1.25 gm/ Sodium (Chloride) 250 mls @ 166.667 mls/hr IVPB 1200, 2359 [facility] Last Admin: 12/21/19 11:29 Dose: 250 mls Loratadine (Claritin) 10 mg PO DAILY [facility] Last Admin: 12/21/19 08:21 Dose: Not Given Lorazepam (Ativan) 2 mg SLOW IVP Q1H PRN PRN Reason: Breakthrough agitation Stop: 01/19/20 00:05 Last Admin: 12/21/19 11:29 Dose: 2 mg Methylprednisolone Sodium Succinate (Solu-Medrol) 40 mg IVP Q6HR [facility] Last Admin: 12/21/19 11:31 Dose: 40 mg Miscellaneous Medication (Pharmacy To Dose) 1 each IVPB PRN PRN PRN Reason: Pharmacy to dose Morphine Sulfate (Morphine) 2 mg SLOW IVP Q1H PRN PRN Reason: BREAKTHROUGH PAIN/Agitation Stop: 01/19/20 00:05 Discontinue Previous Narcotic Pain Medications And Benzodiazepines 1 each FS .ONE [facility] Stop: 01/19/20 00:05 Ondansetron HCl (Zofran Odt) 4 mg PO Q6H PRN PRN Reason: Nausea/Vomiting Pantoprazole Sodium (Protonix) 40 mg IVP DAILY [facility] Last Admin: 12/21/19 08:29 Dose: 40 mg Potassium Chloride (K-Dur) 40 meq PO 1115 [facility] Last Admin: 12/21/19 10:15 Dose: Not Given Pregabalin (Lyrica) 400 mg PO BID [facility] Last Admin: 12/21/19 08:21 Dose: Not Given Propofol (Diprivan) 1,000 mg IV INF PRN; Protocol PRN Reason: TO ACHIEVE GOAL RASS Stop: 01/19/20 00:05 Last Admin: 12/21/19 11:34 Dose: 1,000 mg Propofol (Diprivan Bolus) 20 mg IV Q5MIN PRN PRN Reason: BREAKTHROUGH AGITATION Stop: 01/19/20 00:05 Rocuronium [place] (Zemuron) 100 mg IVP Q1H PRN PRN Reason: Agitation Last Admin: 12/21/19 11:28 Dose: 100 mg Senna/Docusate Sodium (Senokot S) 2 tab PO BID PRN PRN Reason: Constipation Sodium Chloride (Normal Saline Pf) 10 ml FS PRN PRN PRN Reason: RECONSTITUTION Sodium Chloride (Flush - Normal Saline) 10 ml IVF Q12HR [facility] Last Admin: 12/21/19 08:30 Dose: 10 ml Sodium Chloride (Flush - Normal Saline) 10 ml IVF PRN PRN PRN Reason: Saline Flush Venlafaxine HCl (Effexor) 75 mg PO DAILY [facility] Last Admin: 12/21/19 08:21 Dose: Not Given Vital Signs & Weight: Vital Signs Temp Pulse Resp Pulse Ox 12/21/19 14:43 92 12/21/19 14:00 22 H 12/21/19 12:00 97.5 F L 18 12/21/19 11:07 103 H 27 H 99 12/21/19 10:00 24 H 12/21/19 08:00 98.0 F 24 H 100 12/21/19 06:00 24 H Admit Weight 190 lb Weight 175 lb 11.335 oz - Physical Exam General: other (S/I) HEENT: normocephaly Neck: supple neck Cardiac: no murmur, regular rate Lungs: normal breath sounds Neuro: no lateralizing findings Abdomen: active bowel sounds Extremities: no edema Skin: clear Musculoskeletal: normal range of motion - Labs Result Diagrams: 12/21/19 03:39 12/21/19 03:39 Troponin/CKMB CK-MB (CK-2) 0.8 ng/mL (0-6.6) 12/19/19 10:15 Troponin I 0.022 ng/mL (< 0.028) 12/19/19 17:24 - Telemetry Sinus rhythms and dysrhythmias: sinus rhythm - Assessment/Plan Assessment/Plan: 1. Acute hypoxic respiratory insufficiency 2. Pulmonary hemorrhage 3. Pneumonia 4. HTN, improved. 5. Hypokalemia. 6. Demand ischemia. PLAN: - Hemorrhage may be related to HTN or infection. BP better. Abx for pneumonia. - Normal LV function. - Continue supportive care.
--- NOTE | 2019-12-21 18:08 | PRG ---
DATE OF SERVICE: 12/21/2019 SUBJECTIVE: Mr. James remains hemodynamically stable. He is still sedated and intermittently paralyzed. OBJECTIVE: VITAL SIGNS: Blood pressure 159/91, heart rate 93, respiratory rate is in the high teens to low 20s. LUNGS: Remarkable for coarse equal breath sounds. HEART: Regular rhythm. No S3. ABDOMEN: Soft and nontender. EXTREMITIES: Without asymmetry or edema. LABORATORY DATA: White count 14.4, hemoglobin 11.0, platelets 155,000. Sodium 141, potassium 3.4, chloride 111, bicarb 22, BUN 36, creatinine 0.9, glucose 151. Blood gas; pH 7.41, pCO2 of 39, pO2 of 86. IMAGING DATA: Chest x-ray reviewed by me, this has improved slightly. IMPRESSION: 1. Alveolar hemorrhage associated with hypertension plus or minus pneumonia. 2. Underlying interstitial lung disease, clinically and per the history provided by the , has been stable. PLAN: Continue with ventilatory support. Job ID: [id number]
[2019-12-22] MEDS: Lorazepam 2 MG/ML VIAL SLOW IVP PRN ×5 (01:21→23:01)
[2019-12-22] MEDS: Rocuronium Bromide 10 MG/ML (10ML VIAL) IVP PRN ×4 (01:21→23:01)
[2019-12-22] MEDS: Propofol 1,000 MG/100 ML VIAL IV PRN ×3 (03:10→19:10)
[2019-12-22 04:56] LABS: Anion Gap 17 mmol/L (10-20); BUN (Urea Nitrogen) 36 mg/dL (8.4-25.7); Calc. Creatinine Clearance 70 mL/min (70-130); Calcium 8.7 mg/dL (7.8-10.44); Carbon Dioxide 17 mmol/L (23-31); Chloride 116 mmol/L (98-107); Estimated GFR-MDRD 70; Glucose 128 mg/dL (83-110); Potassium 4.6 mmol/L (3.5-5.1); Sodium 145 mmol/L (136-145)
[2019-12-22 05:25] LABS: Band 5 % (5-11); Hemoglobin 13.4 g/dL (14.0-18.0); MDiff Complete? YES; Mean Corpuscular HGB CONC 32.5 g/dL (32.0-36.0); Mean Corpuscular Hemoglobin 32.2 pg (27.0-31.0); Mean Corpuscular Volume 98.9 fL (78.0-98.0); Mean Platelet Volume 7.8 fL (7.4-10.4); Monocytes 4 % (0-10); Myelocyte 1 % (0-0); Neutrophil 90 % (42-75); Platelet Count 191 thou/uL (130-400); RBC Distribution Width 14.6 % (11.5-14.5); Red Blood Cell (RBC) Count 4.16 mill/uL (4.70-6.10); White Blood Cell (WBC) Count 18.4 thou/uL (4.8-10.8)
[2019-12-22] MEDS: methylPREDNISolone Sod Succ 40 MG VIAL IVP SCH ×4 (05:38→23:12)
[2019-12-22] MEDS: Loratadine 10 MG TAB PO SCH (07:54)
[2019-12-22] MEDS: Atorvastatin Calcium 20 MG TAB PO SCH (07:54)
[2019-12-22] MEDS: Finasteride 5 MG TAB PO SCH (07:54)
[2019-12-22] MEDS: Pregabalin 50 MG CAP PO SCH ×2 (07:54→20:00)
[2019-12-22] MEDS: Cefepime 2 GM in Sodium Chloride 0.9% 100 ML IVPB SCH ×2 (08:08→21:29)
[2019-12-22 08:09] LABS: Actual Bicarbonate (HCO3a) 23.9 mEq/L (22-28); Base Excess (BEa) -0.7 mEq/L (-2.0 to +3.0); CO2 Tension 39.2 mmHg (35.0-45.0); Calcium, Ionized 1.22 mmol/L (1.12-1.30); Hemoglobin (Hb) 12.2 g/dL (14.0-18.0); O2 Tension (PaO2) 70.5 mmHg (> 70.0)
[2019-12-22] MEDS: Pantoprazole 40 MG VIAL IVP SCH (08:09)
[2019-12-22] MEDS: Enoxaparin Sodium 30 MG/0.3 ML SYRINGE SC SCH (08:09)
[2019-12-22 08:11] LABS: Puncture Site L.R.
--- NOTE | 2019-12-22 09:07 | OP ---
DATE OF PROCEDURE: 12/20/2019 INDICATIONS FOR PROCEDURE: Mr. James looked a little better this evening when I checked on him while I was up here seeing another patient, but was also starting to show some signs of fatigue and was saying that he was tired. I discussed intubation with him as well as his by phone and all agreed that that was the next best option for him DESCRIPTION OF PROCEDURE: He was transferred to the critical care unit. He was placed in the sitting position. He was given 1 mg Versed. Bite block was placed in his mouth. He was orally intubated fiberoptically with an 8.0 tube. This was above the main chan at 23 cm, tolerated this well. He initially and transiently dropped his saturations into the low 70s, but now has oximetry of 93%. Surprisingly, his tracheobronchial tree was full of blood. This argues that maybe some of his abnormalities are hypertensive pulmonary edema and hypertensive alveolar hemorrhage. An echocardiogram has been ordered in the morning. He will be kept sedated and paralyzed tonight. The critical care time independent of the procedure was 45 minutes. Job ID: [id number]
--- NOTE | 2019-12-22 09:34 | RAD ---
PORTABLE CHEST: HISTORY: Ventilator. CCU followup. COMPARISON: 12/21/2019. FINDINGS: ET tube is noted in place. Cardiomegaly. There is vascular congestion. Bilateral infiltrates are again noted. Small bilateral effusions. IMPRESSION: No significant interval change. POS: [facility]
[2019-12-22] MEDS: Potassium Chloride 20 MEQ TAB PO SCH (11:13)
[2019-12-22 11:16] LABS: Vancomycin, Trough 17.3 ug/mL
[2019-12-22] MEDS: Vancomycin HCl 1.25 GM in Sodium Chloride 0.9% 250 ML 250 ML IVPB SCH ×2 (11:58→23:10)
--- NOTE | 2019-12-22 12:58 | PRG ---
DATE OF SERVICE: 12/22/2019 SUBJECTIVE: David James remains mechanically ventilated. OBJECTIVE: VITAL SIGNS: He is afebrile, respiratory rate 18 to 20, FiO2 is at 40%. We turned his PEEP and his FiO2 down from 50%. Blood pressure is 112/68. LUNGS: Remarkable for rhonchi bilaterally. HEART: Regular rhythm. ABDOMEN: Soft. EXTREMITIES: Without edema. LABORATORY DATA: White count 18.4, hemoglobin 13.4, platelets 191. Sodium 145, potassium 4.6, chloride 116, bicarb 17, BUN 36, creatinine 1.03. PH 7.4, CO2 of 39, PO2 of 70. IMPRESSION AND PLAN: 1. Respiratory failure associated with alveolar hemorrhage associated with hypertension and possibly pneumonia. 2. Underlying pulmonary fibrosis. Still has a static compliance of less than 30 (23-27 today). I think his lung compliance issues will prevent weaning to extubation today. I have decreased ventilatory support. We will continue with supportive care. Critical care time is 35 minutes. Job ID: [id number] MTDD
--- NOTE | 2019-12-22 13:32 | PDOC.CPN ---
- Subjective Date: 12/22/19 Time: 13:31 Interval history: Remains sedated, intubated. - Review of Systems ROS unobtainable: due to endotracheal tube - Objective Allergies/Adverse Reactions: Allergies Allergy/AdvReac Type Severity Reaction Status Date / Time moxifloxacin HCl Allergy Hives Verified 06/13/16 12:35 [From Avelox] Visit Medications: Current Medications Acetaminophen (Tylenol) 650 mg PO Q4H PRN PRN Reason: Headache/Fever/Mild Pain (1-3) Albuterol/Ipratropium (Duoneb) 3 ml IPPB [id number] [facility] Last Admin: 12/22/19 11:10 Dose: 3 ml Atorvastatin Calcium (Lipitor) 20 mg PO DAILY [facility] Last Admin: 12/22/19 07:54 Dose: Not Given Cholecalciferol (Vitamin D3) 1,000 units PO DAILY [facility] Last Admin: 12/22/19 07:54 Dose: Not Given Diltiazem HCl (Cardizem Cd) 360 mg PO DAILY [facility] Last Admin: 12/22/19 07:54 Dose: Not Given Enoxaparin Sodium (Lovenox) 30 mg SC 0900 [facility] Last Admin: 12/22/19 08:09 Dose: 30 mg Finasteride (Proscar) 5 mg PO DAILY [facility] Last Admin: 12/22/19 07:54 Dose: Not Given Hydralazine HCl (Apresoline) 10 mg SLOW IVP Q6H PRN PRN Reason: SBP >150 Last Admin: 12/21/19 23:06 Dose: 10 mg Cefepime HCl 2 gm/ Sodium (Chloride) 100 mls @ 200 mls/hr IVPB Q12HR [facility] Last Admin: 12/22/19 08:08 Dose: 100 mls Fentanyl Citrate 2,000 mcg/ (Sodium Chloride) 100 mls @ 0 mls/hr IV INF [facility]; Protocol Stop: 01/19/20 00:05 Fentanyl Citrate (Fentanyl Bolus) 250 mls @ 0 mls/hr IVPB PRN PRN PRN Reason: Breakthrough pain/agitation Stop: 01/19/20 00:05 Nicardipine HCl 25 mg/ Sodium (Chloride) 250 mls @ 0 mls/hr IVPB INF [facility]; Protocol Vancomycin HCl 1.25 gm/ Sodium (Chloride) 250 mls @ 166.667 mls/hr IVPB 1200, 2359 [facility] Last Admin: 12/22/19 11:58 Dose: 250 mls Dexmedetomidine HCl 200 mcg/ (Sodium Chloride) 50 mls @ 0 mls/hr IVPB INF [facility]; Protocol Last Admin: 12/22/19 11:58 Dose: 50 mls Loratadine (Claritin) 10 mg PO DAILY [facility] Last Admin: 12/22/19 07:54 Dose: Not Given Lorazepam (Ativan) 2 mg SLOW IVP Q1H PRN PRN Reason: Breakthrough agitation Stop: 01/19/20 00:05 Last Admin: 12/22/19 11:25 Dose: 2 mg Methylprednisolone Sodium Succinate (Solu-Medrol) 40 mg IVP Q6HR [facility] Last Admin: 12/22/19 11:25 Dose: 40 mg Miscellaneous Medication (Pharmacy To Dose) 1 each IVPB PRN PRN PRN Reason: Pharmacy to dose Morphine Sulfate (Morphine) 2 mg SLOW IVP Q1H PRN PRN Reason: BREAKTHROUGH PAIN/Agitation Stop: 01/19/20 00:05 Discontinue Previous Narcotic Pain Medications And Benzodiazepines 1 each FS .ONE [facility] Stop: 01/19/20 00:05 Ondansetron HCl (Zofran Odt) 4 mg PO Q6H PRN PRN Reason: Nausea/Vomiting Pantoprazole Sodium (Protonix) 40 mg IVP DAILY [facility] Last Admin: 12/22/19 08:09 Dose: 40 mg Potassium Chloride (K-Dur) 40 meq PO 1115 [facility] Last Admin: 12/22/19 11:13 Dose: Not Given Pregabalin (Lyrica) 400 mg PO BID [facility] Last Admin: 12/22/19 07:54 Dose: Not Given Propofol (Diprivan) 1,000 mg IV INF PRN; Protocol PRN Reason: TO ACHIEVE GOAL RASS Stop: 01/19/20 00:05 Last Admin: 12/22/19 10:40 Dose: 1,000 mg Propofol (Diprivan Bolus) 20 mg IV Q5MIN PRN PRN Reason: BREAKTHROUGH AGITATION Stop: 01/19/20 00:05 Rocuronium [place] (Zemuron) 100 mg IVP Q1H PRN PRN Reason: Agitation Last Admin: 12/22/19 11:25 Dose: 100 mg Senna/Docusate Sodium (Senokot S) 2 tab PO BID PRN PRN Reason: Constipation Sodium Chloride (Normal Saline Pf) 10 ml FS PRN PRN PRN Reason: RECONSTITUTION Sodium Chloride (Flush - Normal Saline) 10 ml IVF Q12HR [facility] Last Admin: 12/22/19 08:09 Dose: 10 ml Sodium Chloride (Flush - Normal Saline) 10 ml IVF PRN PRN PRN Reason: Saline Flush Venlafaxine HCl (Effexor) 75 mg PO DAILY [facility] Last Admin: 12/22/19 07:55 Dose: Not Given Vital Signs & Weight: Vital Signs Temp Pulse Resp BP Pulse Ox 12/22/19 12:00 98.6 F 18 12/22/19 11:11 80 117/77 12/22/19 11:10 79 18 99 12/22/19 10:00 22 H 12/22/19 08:00 99.4 F 20 100 12/22/19 07:50 80 147/89 H 12/22/19 07:49 81 22 H 97 12/22/19 06:00 98.7 F 12/22/19 04:31 88 12/22/19 01:49 91 12/22/19 01:47 90 17 99 Admit Weight 190 lb Weight 175 lb 11.335 oz - Physical Exam General: other (SI) Neck: midline trachea Cardiac: regular rate and rhythm Lungs: scattered rhonchi Neuro: no lateralizing findings Abdomen: active bowel sounds Extremities: no edema Skin: clear Musculoskeletal: normal range of motion - Labs Result Diagrams: 12/22/19 03:49 12/22/19 03:49 Troponin/CKMB CK-MB (CK-2) 0.8 ng/mL (0-6.6) 12/19/19 10:15 Troponin I 0.022 ng/mL (< 0.028) 12/19/19 17:24 - Telemetry Sinus rhythms and dysrhythmias: sinus rhythm - Assessment/Plan Assessment/Plan: 1. Acute hypoxic respiratory insufficiency 2. Pulmonary hemorrhage 3. Pneumonia 4. HTN, improved. 5. Hypokalemia. 6. Demand ischemia. 7. Pulmonary fibrosis. PLAN: - Hemorrhage may be related to HTN or infection. BP better. Abx for pneumonia. - Normal LV function. - Continue supportive care. - CXR improved.
--- NOTE | 2019-12-22 19:38 | PDOC.HOSPP ---
- Subjective Encounter Date: 12/22/19 Encounter Time: 17:20 Subjective: f/u for resp failure, PNA with pulmonary hemorrhage tx with Vanc/Cefepime. Nursing reports suction drainage from lungs is clearing[facility] - Objective Vital Signs & Weight: Vital Signs (12 hours) Temp Pulse Resp BP Pulse Ox 12/22/19 18:57 73 148/82 H 12/22/19 18:00 24 H 12/22/19 16:00 98.6 F 20 12/22/19 15:00 57 L 144/83 H 12/22/19 14:58 57 L 18 98 12/22/19 14:00 18 12/22/19 12:00 98.6 F 18 12/22/19 11:11 80 117/77 12/22/19 11:10 79 18 99 12/22/19 10:00 22 H 12/22/19 08:00 99.4 F 20 100 12/22/19 07:50 80 147/89 H 12/22/19 07:49 81 22 H 97 Weight Admit Weight 190 lb Weight 175 lb 11.335 oz Most Recent Monitor Data Heart Rate from ECG 52 NIBP 148/82 NIBP BP-Mean 104 Respiration from ECG 20 SpO2 100 I&O: 12/21/19 12/22/19 12/23/19 06:59 06:59 06:59 Intake Total 1388 1832 898.5 Output Total 1240 1615 595 Balance 148 217 303.5 Result Diagrams: 12/22/19 03:49 12/22/19 03:49 Additional Labs: Microbiology 12/19/19 10:20 Venous blood - Right Arm Blood Culture - Preliminary Gram Positive Cocci 12/19/19 10:20 Venous blood - Left Arm Blood Culture - Preliminary Specimen has been received and culture in progress. No Growth to date. Laboratory Tests 12/19/19 12/19/19 12/19/19 10:15 13:02 17:24 WBC 14.3 H Hgb 13.3 L Neutrophils % 82.6 H Neutrophils % (Manual) Band Neuts % (Manual) Potassium Creatinine Lactic Acid 3.3 H B-Natriuretic Peptide 420.0 H 12/20/19 12/20/19 12/21/19 05:37 05:37 03:39 WBC 18.2 H Hgb 12.1 L Neutrophils % Neutrophils % (Manual) 77 H 69 Band Neuts % (Manual) 19 H 25 H Potassium 3.7 Creatinine 1.02 Lactic Acid B-Natriuretic Peptide Microbiology 12/19/19 10:20 Venous blood - Right Arm Blood Culture - Preliminary Gram Positive Cocci 12/19/19 10:20 Venous blood - Left Arm Blood Culture - Preliminary NO GROWTH AT 48 HOURS Radiology Reviewed by me: Yes (PCXR - bilat venous prominence, infiltrates) EKG Reviewed by me: Yes (Tele - Sinus bradycardia) Hospitalist ROS - Medication Medications: Active Medications Generic Name Dose Route Start Last Admin Trade Name Freq PRN Reason Stop Dose Admin Albuterol/Ipratropium 3 ml 12/19/19 18:30 12/22/19 18:56 Duoneb IPPB 3 ml [id number] [facility] Administration Atorvastatin Calcium 20 mg 12/20/19 09:00 12/22/19 07:54 Lipitor PO Not Given DAILY [facility] Cholecalciferol 1,000 units 12/20/19 09:00 12/22/19 07:54 Vitamin D3 PO Not Given DAILY [facility] Diltiazem HCl 360 mg 12/20/19 09:00 12/22/19 07:54 Cardizem Cd PO Not Given DAILY [facility] Enoxaparin Sodium 30 mg 12/21/19 09:00 12/22/19 08:09 Lovenox SC 30 mg 0900 [facility] Administration Finasteride 5 mg 12/20/19 09:00 12/22/19 07:54 Proscar PO Not Given DAILY [facility] Hydralazine HCl 10 mg 12/19/19 17:53 12/21/19 23:06 Apresoline SLOW IVP 10 mg Q6H PRN Administration SBP >150 Cefepime HCl 2 gm/ Sodium 100 mls @ 200 mls/hr 12/19/19 21:00 12/22/19 08:08 Chloride IVPB 100 mls Q12HR [facility] Administration Vancomycin HCl 1.25 gm/ Sodium 250 mls @ 166.667 mls/hr 12/21/19 12:00 11:58 Chloride IVPB 250 mls 1200,2359 [facility] Administration Dexmedetomidine HCl 400 mcg/ 100 mls @ 0 mls/hr 12/22/19 17:30 12/22/19 17:28 Sodium Chloride IVPB 100 mls INF [facility] Administration Protocol Per Protocol Loratadine 10 mg 12/20/19 09:00 12/22/19 07:54 Claritin PO Not Given DAILY [facility] Lorazepam 2 mg 12/20/19 00:05 12/22/19 19:07 Ativan SLOW IVP 01/19/20 00:05 2 mg Q1H PRN Administration Breakthrough agitation Methylprednisolone Sodium Succinate 40 mg 12/19/19 18:00 12/22/19 17:29 Solu-Medrol IVP 40 mg Q6HR [facility] Administration Pantoprazole Sodium 40 mg 12/21/19 09:00 12/22/19 08:09 Protonix IVP 40 mg DAILY [facility] Administration Potassium Chloride 40 meq 12/20/19 11:15 12/22/19 11:13 K-Dur PO Not Given 1115 [facility] Pregabalin 400 mg 12/19/19 21:00 12/22/19 07:54 Lyrica PO Not Given BID [facility] Propofol 1,000 mg 12/20/19 00:05 12/22/19 19:10 Diprivan IV 01/19/20 00:05 1,000 mg INF PRN Administration TO ACHIEVE GOAL RASS Protocol Rocuronium [place] 100 mg 12/20/19 00:17 12/22/19 11:25 Zemuron IVP 100 mg Q1H PRN Administration Agitation Sodium Chloride 10 ml 12/20/19 21:00 12/22/19 08:09 Flush - Normal Saline IVF 10 ml Q12HR [facility] Administration Venlafaxine HCl 75 mg 12/20/19 09:00 12/22/19 07:55 Effexor PO Not Given DAILY [facility] - Exam General - other findings: sedate on mech vent ENT: normocephalic atraumatic, no oropharyngeal lesions ENT - other findings: ETT in place Neck: supple, symmetric, no JVD, no thyromegaly Heart: RRR, no murmur, no gallops, no rubs, normal peripheral pulses Respiratory - other findings: diminished bilat, scattered rhonchi Gastrointestinal: soft, non-tender, non-distended, normal bowel sounds, no palpable masses Extremities: no cyanosis, no clubbing, 1+ LE edema Skin: normal turgor, no lesions Musculoskeletal: generalized weakness Psychiatric: somnolent, lethargic Hosp A/P (1) Acute respiratory failure with hypoxia Code(s): J96.01 - ACUTE RESPIRATORY FAILURE WITH HYPOXIA Status: Acute Plan: Continue mech ventilation, see below for tx options (2) Severe sepsis Code(s): A41.9 - SEPSIS, UNSPECIFIED ORGANISM; R65.20 - SEVERE SEPSIS WITHOUT SEPTIC SHOCK Status: Acute Plan: Secondary to PNA, continue Cefepime/Vancomycin (3) Bacterial pneumonia Code(s): J15.9 - UNSPECIFIED BACTERIAL PNEUMONIA Status: Acute Plan: Continue Cefepime/Vancomycin/Solumedrol (4) Hypokalemia Code(s): E87.6 - HYPOKALEMIA Status: Acute Plan: Resolved (5) HTN (hypertension) Code(s): I10 - ESSENTIAL (PRIMARY) HYPERTENSION Status: Chronic Qualifiers: Hypertension type: essential hypertension Qualified Code(s): I10 - Essential (primary) hypertension - Plan continue antibiotics, psych social worker, respiratory therapy, DVT proph w/SCDs Continue critical support SIMV for resp failure PCXR daily Continue Cefepime/Vanc AM lab: BMP, CBC, ABG
[2019-12-23] MEDS: hydrALAZINE 20 MG/ML VIAL SLOW IVP PRN (01:32)
[2019-12-23] MEDS: Rocuronium Bromide 10 MG/ML (10ML VIAL) IVP PRN ×2 (01:59→08:22)
[2019-12-23] MEDS: Lorazepam 2 MG/ML VIAL SLOW IVP PRN ×3 (01:59→08:22)
[2019-12-23] MEDS: methylPREDNISolone Sod Succ 40 MG VIAL IVP SCH ×3 (05:01→18:01)
[2019-12-23] MEDS: Propofol 1,000 MG/100 ML VIAL IV PRN ×3 (05:01→22:20)
[2019-12-23 07:38] LABS: Mean Corpuscular HGB CONC 33.7 g/dL (32.0-36.0); Mean Corpuscular Hemoglobin 32.6 pg (27.0-31.0); Mean Corpuscular Volume 96.5 fL (78.0-98.0); Platelet Count 199 thou/uL (130-400); RBC Distribution Width 14.3 % (11.5-14.5); Red Blood Cell (RBC) Count 3.99 mill/uL (4.70-6.10); White Blood Cell (WBC) Count 16.2 thou/uL (4.8-10.8)
[2019-12-23 07:40] LABS: Base Excess (BEa) 2.1 mEq/L (-2.0 to +3.0); CO2 Tension 43.6 mmHg (35.0-45.0); Calcium, Ionized 1.21 mmol/L (1.12-1.30); Carboxyhemoglobin (COHb) 1.1 gm% (0.0-3.0); Hemoglobin (Hb) 11.6 g/dL (14.0-18.0); O2 Tension (PaO2) 79.4 mmHg (> 70.0); Potassium - ABG Lab 4.41 mmol/L (3.70-5.30); pH, Arterial 7.41 (7.35-7.45)
[2019-12-23 07:41] LABS: Puncture Site L.R.
[2019-12-23 07:46] LABS: Band 7 % (5-11); Lymphocytes 5 % (21-51); MDiff Complete? YES; Monocytes 3 % (0-10); Neutrophil 85 % (42-75); RBC Morphology Normal
[2019-12-23] MEDS: Pantoprazole 40 MG VIAL IVP SCH (08:22)
[2019-12-23] MEDS: Enoxaparin Sodium 30 MG/0.3 ML SYRINGE SC SCH (08:22)
[2019-12-23] MEDS: Cefepime 2 GM in Sodium Chloride 0.9% 100 ML IVPB SCH ×2 (08:34→21:26)
[2019-12-23] MEDS: Atorvastatin Calcium 20 MG TAB PO SCH (09:10)
[2019-12-23] MEDS: Finasteride 5 MG TAB PO SCH (09:11)
[2019-12-23] MEDS: Pregabalin 50 MG CAP PO SCH ×2 (09:11→21:26)
[2019-12-23] MEDS: Loratadine 10 MG TAB PO SCH (09:11)
[2019-12-23] MEDS: niCARdipine 25 MG in Sodium Chloride 0.9% 250 ML 240 ML IVPB SCH ×2 (09:34→18:00)
[2019-12-23] MEDS: fentaNYL Citrate/PF 2,000 MCG in Sodium Chloride 0.9% 60 ML IV SCH (09:54)
--- NOTE | 2019-12-23 10:33 | RAD ---
CHEST 1 VIEW: Date: 12/23/2019 HISTORY: Respiratory insufficiency. COMPARISON: 12/21/2019. FINDINGS: Endotracheal tube in stable position. Interstitial, linear, and reticulonodular parenchymal changes, as well as some bilateral pleural changes are again noted and overall stable. Borderline heart size. IMPRESSION: Stable abnormal bilateral parenchymal and pleural opacity changes. Continue short-term follow-up. POS: [facility]
[2019-12-23] MEDS: Vancomycin HCl 1.25 GM in Sodium Chloride 0.9% 250 ML 250 ML IVPB SCH (12:33)
--- NOTE | 2019-12-23 18:26 | PDOC.HOSPP ---
- Subjective Encounter Date: 12/23/19 Encounter Time: 11:15 Subjective: f/u for resp failure, pulm hemorrhage and PNA on mech ventilation. Nursing reported epistaxis after placment of NGT improved with pressure and now resolved. Switched off Precedex due to bradycardia. - Objective Vital Signs & Weight: Vital Signs (12 hours) Temp Pulse Resp BP Pulse Ox 12/23/19 18:00 18 12/23/19 16:44 61 132/81 12/23/19 16:00 97.9 F 20 12/23/19 14:27 60 126/75 12/23/19 14:26 61 19 96 12/23/19 14:00 18 12/23/19 12:00 98.2 F 28 H 12/23/19 10:39 72 116/72 12/23/19 10:38 74 18 95 12/23/19 10:00 24 H 12/23/19 08:00 98.5 F 18 98 12/23/19 07:30 58 L 148/83 H 12/23/19 07:29 54 L 18 99 Weight Admit Weight 190 lb Weight 175 lb 11.335 oz Most Recent Monitor Data Heart Rate from ECG 60 NIBP 121/71 NIBP BP-Mean 87 Respiration from ECG 18 SpO2 96 I&O: 12/22/19 12/23/19 12/24/19 06:59 06:59 06:59 Intake Total 1832 1387.2 1210.6 Output Total 1615 1555 1000 Balance 217 -167.8 210.6 Result Diagrams: 12/23/19 03:26 12/22/19 03:49 Additional Labs: Microbiology 12/19/19 10:20 Venous blood - Right Arm Blood Culture - Final Presumptiv Micrococcus/Kocuria 12/19/19 10:20 Venous blood - Right Arm Blood Culture - Preliminary Gram Positive Cocci 12/19/19 10:20 Venous blood - Left Arm Blood Culture - Preliminary Specimen has been received and culture in progress. No Growth to date. 12/19/19 10:20 Venous blood - Left Arm Blood Culture - Preliminary NO GROWTH AT 48 HOURS Laboratory Tests 12/19/19 12/19/19 12/19/19 10:15 13:02 17:24 WBC 14.3 H Hgb 13.3 L Neutrophils % 82.6 H Neutrophils % (Manual) Band Neuts % (Manual) Potassium Creatinine Lactic Acid 3.3 H B-Natriuretic Peptide 420.0 H 12/20/19 12/20/19 12/21/19 05:37 05:37 03:39 WBC 18.2 H Hgb 12.1 L Neutrophils % Neutrophils % (Manual) 77 H 69 Band Neuts % (Manual) 19 H 25 H Potassium 3.7 Creatinine 1.02 Lactic Acid B-Natriuretic Peptide Radiology Reviewed by me: Yes (PCXR - bilat pleural/parenchymal changes noted) EKG Reviewed by me: Yes (Tele - SR) Hospitalist ROS - Medication Medications: Active Medications Generic Name Dose Route Start Last Admin Trade Name Freq PRN Reason Stop Dose Admin Albuterol/Ipratropium 3 ml 12/19/19 18:30 12/23/19 14:26 Duoneb IPPB 3 ml [id number] JOSESITO Administration Atorvastatin Calcium 20 mg 12/20/19 09:00 12/23/19 09:10 Lipitor PO Not Given DAILY JOSESITO Cholecalciferol 1,000 units 12/20/19 09:00 12/23/19 09:10 Vitamin D3 PO Not Given DAILY [facility] Diltiazem HCl 360 mg 12/20/19 09:00 12/23/19 09:11 Cardizem Cd PO Not Given DAILY JOSESITO Enoxaparin Sodium 30 mg 12/21/19 09:00 12/23/19 08:22 Lovenox SC 30 mg 0900 JOSESITO Administration Finasteride 5 mg 12/20/19 09:00 12/23/19 09:11 Proscar PO Not Given DAILY JOSESITO Hydralazine HCl 10 mg 12/19/19 17:53 12/23/19 01:32 Apresoline SLOW IVP 10 mg Q6H PRN Administration SBP >150 Cefepime HCl 2 gm/ Sodium 100 mls @ 200 mls/hr 12/19/19 21:00 12/23/19 08:34 Chloride IVPB 100 mls Q12HR JOSESITO Administration Fentanyl Citrate 2,000 mcg/ 100 mls @ 0 mls/hr 12/20/19 00:05 12/23/19 09:54 Sodium Chloride IV 01/19/20 00:05 100 mls INF JOSESITO Administration Protocol Per Protocol Nicardipine HCl 25 mg/ Sodium 250 mls @ 0 mls/hr 12/20/19 00:30 12/23/19 18: 00 Chloride IVPB 250 mls INF JOSESITO Administration Protocol Titrate Vancomycin HCl 1.25 gm/ Sodium 250 mls @ 166.667 mls/hr 12/21/19 12:00 12:33 Chloride IVPB 250 mls 1200,2359 JOSESITO Administration Dexmedetomidine HCl 400 mcg/ 100 mls @ 0 mls/hr 12/22/19 17:30 12/22/19 17:28 Sodium Chloride IVPB 100 mls INF JOSESITO Administration Protocol Per Protocol Loratadine 10 mg 12/20/19 09:00 12/23/19 09:11 Claritin PO Not Given DAILY JOSESITO Lorazepam 2 mg 12/20/19 00:05 12/23/19 08:22 Ativan SLOW IVP 01/19/20 00:05 2 mg Q1H PRN Administration Breakthrough agitation Methylprednisolone Sodium Succinate 40 mg 12/19/19 18:00 12/23/19 18:01 Solu-Medrol IVP 40 mg Q6HR JOSESITO Administration Pantoprazole Sodium 40 mg 12/21/19 09:00 12/23/19 08:22 Protonix IVP 40 mg DAILY JOSESITO Administration Pregabalin 400 mg 12/19/19 21:00 12/23/19 09:11 Lyrica PO Not Given BID [facility] Propofol 1,000 mg 12/20/19 00:05 12/23/19 13:34 Diprivan IV 01/19/20 00:05 1,000 mg INF PRN Administration TO ACHIEVE GOAL RASS Protocol Rocuronium [place] 100 mg 12/20/19 00:17 12/23/19 08:22 Zemuron IVP 100 mg Q1H PRN Administration Agitation Sodium Chloride 10 ml 12/20/19 21:00 12/23/19 08:23 Flush - Normal Saline IVF 10 ml Q12HR JOSESITO Administration Venlafaxine HCl 75 mg 12/20/19 09:00 12/23/19 09:11 Effexor PO Not Given DAILY JOSESITO - Exam General - other findings: sedate on mech vent ENT: normocephalic atraumatic, no oropharyngeal lesions ENT - other findings: ETT in place, no bleeding from nares Neck: supple, symmetric, no JVD, no thyromegaly Heart: RRR, no murmur, no gallops, no rubs, normal peripheral pulses Respiratory - other findings: diminished bilat, coarse sounds in bases Gastrointestinal: soft, non-tender, non-distended, normal bowel sounds, no palpable masses Extremities: no cyanosis, no clubbing, no edema Skin: normal turgor, no lesions Psychiatric: somnolent, lethargic Hosp A/P (1) Acute respiratory failure with hypoxia Code(s): J96.01 - ACUTE RESPIRATORY FAILURE WITH HYPOXIA Status: Acute Plan: Continue mech ventilation with SIMV, see below for mgmt (2) Severe sepsis Code(s): A41.9 - SEPSIS, UNSPECIFIED ORGANISM; R65.20 - SEVERE SEPSIS WITHOUT SEPTIC SHOCK Status: Acute Plan: Resolving, continue Cefepime/Vancomycin (3) Bacterial pneumonia Code(s): J15.9 - UNSPECIFIED BACTERIAL PNEUMONIA Status: Acute Plan: Continue Cefepime/Vancomycin/Solumedrol (4) Hypokalemia Code(s): E87.6 - HYPOKALEMIA Status: Acute Plan: Resolved (5) HTN (hypertension) Code(s): I10 - ESSENTIAL (PRIMARY) HYPERTENSION Status: Chronic Qualifiers: Hypertension type: essential hypertension Qualified Code(s): I10 - Essential (primary) hypertension - Plan continue antibiotics, social work specialist, respiratory therapy, DVT proph w/SCDs Continue critical support SIMV for resp failure, FIO2 45% PCXR daily Continue Cefepime/Vanc Nutritional support with TF's AM lab: CBC, Vanc Trough
--- NOTE | 2019-12-23 20:27 | PRG ---
DATE OF SERVICE: 12/23/2019 SUBJECTIVE: David James is still intermittently requiring paralysis for dyssynchronous ventilation. OBJECTIVE: VITAL SIGNS: Heart rate is in the 60s, blood pressure 125/72. He was hypertensive this morning, respiratory rate in the teens. Intake and output -167. LUNGS: Remarkable for coarse equal breath sounds. HEART: Regular rhythm. ABDOMEN: Soft. EXTREMITIES: Without asymmetry or edema. LABORATORY DATA: Chest x-ray shows bilateral alveolar infiltrates. White count 16.2, hemoglobin 13, platelets 199. There are no new electrolytes. IMPRESSION: 1. Alveolar hemorrhage associated with hypertension, possible pneumonia. 2. Underlying interstitial lung disease, historically has been stable. PLAN: Continue mechanical ventilation. We decided to add fentanyl to see if this helps control his ventilation. Not a candidate for weaning and extubation at this point. We should try to keep him in negative fluid balance as long as his BUN and creatinine tolerate this. Critical care time is 35 minutes. Job ID: [id number] MTDD
[2019-12-24] MEDS: methylPREDNISolone Sod Succ 40 MG VIAL IVP SCH ×4 (00:34→18:01)
[2019-12-24] MEDS: Vancomycin HCl 1.25 GM in Sodium Chloride 0.9% 250 ML 250 ML IVPB SCH ×2 (00:34→12:08)
[2019-12-24] MEDS: niCARdipine 25 MG in Sodium Chloride 0.9% 250 ML 240 ML IVPB SCH ×2 (04:09→16:03)
[2019-12-24 04:48] LABS: Band 3 % (5-11); Hemoglobin 11.9 g/dL (14.0-18.0); Lymphocytes 3 % (21-51); MDiff Complete? YES; Mean Corpuscular HGB CONC 33.5 g/dL (32.0-36.0); Mean Corpuscular Hemoglobin 32.3 pg (27.0-31.0); Mean Corpuscular Volume 96.6 fL (78.0-98.0); Monocytes 4 % (0-10); Myelocyte 2 % (0-0); Neutrophil 88 % (42-75); Platelet Count 190 thou/uL (130-400); RBC Distribution Width 14.1 % (11.5-14.5); Red Blood Cell (RBC) Count 3.69 mill/uL (4.70-6.10); White Blood Cell (WBC) Count 9.4 thou/uL (4.8-10.8)
[2019-12-24] MEDS: fentaNYL Citrate/PF 2,000 MCG in Sodium Chloride 0.9% 60 ML IV SCH (05:15)
[2019-12-24 08:12] LABS: Base Excess (BEa) 0.8 mEq/L (-2.0 to +3.0); CO2 Tension 44.1 mmHg (35.0-45.0); Calcium, Ionized 1.21 mmol/L (1.12-1.30); Carboxyhemoglobin (COHb) 1.3 gm% (0.0-3.0); Hemoglobin (Hb) 11.9 g/dL (14.0-18.0); O2 Tension (PaO2) 76.7 mmHg (> 70.0); Potassium - ABG Lab 4.38 mmol/L (3.70-5.30); pH, Arterial 7.39 (7.35-7.45)
[2019-12-24 08:15] LABS: Puncture Site L.R.
[2019-12-24 08:16] LABS: ALV-art Gradient 189.025 (0-20)
--- NOTE | 2019-12-24 08:16 | RAD ---
Portable frontal chest radiograph: 12/24/2019 COMPARISON: 12/23/2019 HISTORY: Ventilated patient, respiratory distress FINDINGS: Endotracheal tube and nasogastric tube in stable position. No pneumothorax is evident. Bila teral pleural effusions are suspected, unchanged when compared to the prior exam. There is extensive nonspecific interstitial and alveolar opacity within both lungs with a basilar predominance , not significantly changed. IMPRESSION: No significant interval change. Findings may be related to multifocal infectious pneumoni tis, aspiration, or pulmonary edema.
[2019-12-24] MEDS: Propofol 1,000 MG/100 ML VIAL IV PRN ×2 (08:40→16:02)
[2019-12-24 09:17] LABS: Anion Gap 12 mmol/L (10-20); BUN (Urea Nitrogen) 46 mg/dL (8.4-25.7); Calc. Creatinine Clearance 95 mL/min (70-130); Calcium 8.4 mg/dL (7.8-10.44); Carbon Dioxide 25 mmol/L (23-31); Chloride 115 mmol/L (98-107); Estimated GFR-MDRD Greater than 90; Glucose 135 mg/dL (83-110); Potassium 4.7 mmol/L (3.5-5.1); Sodium 147 mmol/L (136-145)
[2019-12-24] MEDS: Cefepime 2 GM in Sodium Chloride 0.9% 100 ML IVPB SCH ×2 (10:01→21:26)
[2019-12-24] MEDS: Enoxaparin Sodium 30 MG/0.3 ML SYRINGE SC SCH (10:02)
[2019-12-24] MEDS: Loratadine 10 MG TAB PO SCH (10:03)
[2019-12-24] MEDS: Finasteride 5 MG TAB PO SCH (10:05)
[2019-12-24] MEDS: Pregabalin 50 MG CAP PO SCH ×2 (10:05→21:25)
[2019-12-24] MEDS: Atorvastatin Calcium 20 MG TAB PO SCH (10:05)
[2019-12-24] MEDS: Pantoprazole 40 MG VIAL IVP SCH (10:31)
--- NOTE | 2019-12-24 15:43 | PDOC.HOSPP ---
- Subjective Encounter Date: 12/24/19 Encounter Time: 15:40 Subjective: f/u for resp failure, PNA and alveolar hemorrhage remaining on mech vent. Receiving TF's, Cardene gtt/Cefepime/Vancomycin/Solumedrol. - Objective Vital Signs & Weight: Vital Signs (12 hours) Temp Pulse Resp BP Pulse Ox 12/24/19 15:04 62 123/73 12/24/19 15:02 60 21 H 96 12/24/19 14:00 18 12/24/19 12:00 99.2 F 18 12/24/19 10:56 64 130/78 12/24/19 10:55 65 18 92 L 12/24/19 10:00 18 12/24/19 08:00 98.4 F 19 12/24/19 07:51 71 148/93 H 12/24/19 07:49 66 18 97 12/24/19 06:00 19 12/24/19 04:00 98.3 F 19 Weight Admit Weight 190 lb Weight 186 lb 1.122 oz Most Recent Monitor Data Heart Rate from ECG 60 NIBP 123/73 NIBP BP-Mean 89 Respiration from ECG 21 SpO2 96 I&O: 12/23/19 12/24/19 12/25/19 06:59 06:59 06:59 Intake Total 1387.2 2797.6 90 Output Total 1555 1930 1070 Balance -167.8 867.6 -980 Result Diagrams: 12/24/19 03:19 12/24/19 08:49 Additional Labs: Microbiology 12/19/19 10:20 Venous blood - Right Arm Blood Culture - Preliminary Gram Positive Cocci 12/19/19 10:20 Venous blood - Left Arm Blood Culture - Preliminary Specimen has been received and culture in progress. No Growth to date. 12/19/19 10:20 Venous blood - Left Arm Blood Culture - Preliminary NO GROWTH AT 48 HOURS Laboratory Tests 12/19/19 12/19/19 12/19/19 10:15 13:02 17:24 WBC 14.3 H Hgb 13.3 L Neutrophils % 82.6 H Neutrophils % (Manual) Band Neuts % (Manual) Potassium Creatinine Lactic Acid 3.3 H B-Natriuretic Peptide 420.0 H 12/20/19 12/20/19 12/21/19 05:37 05:37 03:39 WBC 18.2 H Hgb 12.1 L Neutrophils % Neutrophils % (Manual) 77 H 69 Band Neuts % (Manual) 19 H 25 H Potassium 3.7 Creatinine 1.02 Lactic Acid B-Natriuretic Peptide Radiology Reviewed by me: Yes (PCXR - multifocal infiltrates, lines/tubes in place) EKG Reviewed by me: Yes (Tele - SR) Hospitalist ROS - Medication Medications: Active Medications Generic Name Dose Route Start Last Admin Trade Name Freq PRN Reason Stop Dose Admin Albuterol/Ipratropium 3 ml 12/19/19 18:30 12/24/19 15:02 Duoneb IPPB 3 ml [id number] JOSESITO Administration Atorvastatin Calcium 20 mg 12/20/19 09:00 12/24/19 10:05 Lipitor PO 20 mg DAILY JOSESITO Administration Cholecalciferol 1,000 units 12/20/19 09:00 12/24/19 12:09 Vitamin D3 PO 1,000 units DAILY JOSESITO Administration Diltiazem HCl 360 mg 12/20/19 09:00 12/24/19 10:03 Cardizem Cd PO 360 mg DAILY JOSESITO Administration Enoxaparin Sodium 30 mg 12/21/19 09:00 12/24/19 10:02 Lovenox SC 30 mg 0900 JOSESITO Administration Finasteride 5 mg 12/20/19 09:00 12/24/19 10:05 Proscar PO 5 mg DAILY JOSESITO Administration Hydralazine HCl 10 mg 12/19/19 17:53 12/23/19 01:32 Apresoline SLOW IVP 10 mg Q6H PRN Administration SBP >150 Cefepime HCl 2 gm/ Sodium 100 mls @ 200 mls/hr 12/19/19 21:00 12/24/19 10:01 Chloride IVPB 100 mls Q12HR JOSESITO Administration Fentanyl Citrate 2,000 mcg/ 100 mls @ 0 mls/hr 12/20/19 00:05 12/24/19 05:15 Sodium Chloride IV 01/19/20 00:05 100 mls INF JOSESITO Administration Protocol Per Protocol Nicardipine HCl 25 mg/ Sodium 250 mls @ 0 mls/hr 12/20/19 00:30 12/24/19 04: 09 Chloride IVPB 250 mls INF JOSESITO Administration Protocol Titrate Vancomycin HCl 1.25 gm/ Sodium 250 mls @ 166.667 mls/hr 12/21/19 12:00 12:08 Chloride IVPB 250 mls 1200,2359 JOSESITO Administration Dexmedetomidine HCl 400 mcg/ 100 mls @ 0 mls/hr 12/22/19 17:30 12/22/19 17:28 Sodium Chloride IVPB 100 mls INF JOSESITO Administration Protocol Per Protocol Loratadine 10 mg 12/20/19 09:00 12/24/19 10:03 Claritin PO 10 mg DAILY JOSESITO Administration Lorazepam 2 mg 12/20/19 00:05 12/23/19 08:22 Ativan SLOW IVP 01/19/20 00:05 2 mg Q1H PRN Administration Breakthrough agitation Methylprednisolone Sodium Succinate 40 mg 12/19/19 18:00 12/24/19 12:08 Solu-Medrol IVP 40 mg Q6HR JOSESITO Administration Pantoprazole Sodium 40 mg 12/21/19 09:00 12/24/19 10:31 Protonix IVP 40 mg DAILY JOSESITO Administration Pregabalin 400 mg 12/19/19 21:00 12/24/19 10:05 Lyrica PO 400 mg BID JOSESITO Administration Propofol 1,000 mg 12/20/19 00:05 12/24/19 08:40 Diprivan IV 01/19/20 00:05 1,000 mg INF PRN Administration TO ACHIEVE GOAL RASS Protocol Rocuronium [place] 100 mg 12/20/19 00:17 12/23/19 08:22 Zemuron IVP 100 mg Q1H PRN Administration Agitation Sodium Chloride 10 ml 12/20/19 21:00 12/24/19 10:23 Flush - Normal Saline IVF 10 ml Q12HR JOSESITO Administration Venlafaxine HCl 75 mg 12/20/19 09:00 12/24/19 10:02 Effexor PO 75 mg DAILY JOSESITO Administration - Exam General - other findings: sedate on mech ventilation Eye: PERRL, anicteric sclera ENT: normocephalic atraumatic, no oropharyngeal lesions Neck: supple, symmetric, no JVD, no thyromegaly Heart: RRR, no murmur, no gallops, no rubs, normal peripheral pulses Respiratory: no tachypnea Respiratory - other findings: scattered rhonchi bilat, diminished in bibasilar region Gastrointestinal: soft, non-tender, non-distended, normal bowel sounds, no palpable masses Extremities: no cyanosis, no clubbing, no edema Skin: normal turgor, no lesions Psychiatric: somnolent, lethargic Psychiatric - other findings: sedate on mech ventilation Hosp A/P (1) Acute respiratory failure with hypoxia Code(s): J96.01 - ACUTE RESPIRATORY FAILURE WITH HYPOXIA Status: Acute Plan: Unweanable currently, continue mech ventilation, see below (2) Severe sepsis Code(s): A41.9 - SEPSIS, UNSPECIFIED ORGANISM; R65.20 - SEVERE SEPSIS WITHOUT SEPTIC SHOCK Status: Acute Plan: Continue IV Cefepime/Vancomycin (3) Bacterial pneumonia Code(s): J15.9 - UNSPECIFIED BACTERIAL PNEUMONIA Status: Acute Plan: Persistent infiltrates, consider bronchoscopy, ? antifungals, continue Cefepime/ Vancomycin (4) Hypokalemia Code(s): E87.6 - HYPOKALEMIA Status: Acute Plan: Improved, continue serial K+ monitoring (5) HTN (hypertension) Code(s): I10 - ESSENTIAL (PRIMARY) HYPERTENSION Status: Chronic Qualifiers: Hypertension type: essential hypertension Qualified Code(s): I10 - Essential (primary) hypertension - Plan continue antibiotics, oncology social work, respiratory therapy, DVT proph w/SCDs Continue critical support SIMV for resp failure, FIO2 45% PCXR daily Continue Cefepime/Vanc Nutritional support with TF's D5W @ 75ml/h AM lab: BMP, CBC, Vanc Trough PCXR in am
[2019-12-24] MEDS: Dextrose 5% in Water 1,000 ML IV SCH (17:00)
--- NOTE | 2019-12-24 17:27 | PDOC.CPN ---
- Subjective Date: 12/24/19 Time: 17:27 Interval history: Remains sedated, intubated. - Review of Systems ROS unobtainable: due to endotracheal tube - Objective Allergies/Adverse Reactions: Allergies Allergy/AdvReac Type Severity Reaction Status Date / Time moxifloxacin HCl Allergy Hives Verified 06/13/16 12:35 [From Avelox] Visit Medications: Current Medications Acetaminophen (Tylenol) 650 mg PO Q4H PRN PRN Reason: Headache/Fever/Mild Pain (1-3) Albuterol/Ipratropium (Duoneb) 3 ml IPPB [id number] [facility] Last Admin: 12/24/19 15:02 Dose: 3 ml Atorvastatin Calcium (Lipitor) 20 mg PO DAILY [facility] Last Admin: 12/24/19 10:05 Dose: 20 mg Bisacodyl (Dulcolax) 10 mg [place] Q8H PRN PRN Reason: Constipation Cholecalciferol (Vitamin D3) 1,000 units PO DAILY [facility] Last Admin: 12/24/19 12:09 Dose: 1,000 units Diltiazem HCl (Cardizem Cd) 360 mg PO DAILY [facility] Last Admin: 12/24/19 10:03 Dose: 360 mg Enoxaparin Sodium (Lovenox) 30 mg SC 0900 [facility] Last Admin: 12/24/19 10:02 Dose: 30 mg Finasteride (Proscar) 5 mg PO DAILY [facility] Last Admin: 12/24/19 10:05 Dose: 5 mg Hydralazine HCl (Apresoline) 10 mg SLOW IVP Q6H PRN PRN Reason: SBP >150 Last Admin: 12/23/19 01:32 Dose: 10 mg Cefepime HCl 2 gm/ Sodium (Chloride) 100 mls @ 200 mls/hr IVPB Q12HR [facility] Last Admin: 12/24/19 10:01 Dose: 100 mls Fentanyl Citrate 2,000 mcg/ (Sodium Chloride) 100 mls @ 0 mls/hr IV INF JOSESITO; Protocol Stop: 01/19/20 00:05 Last Admin: 12/24/19 05:15 Dose: 100 mls Fentanyl Citrate (Fentanyl Bolus) 250 mls @ 0 mls/hr IVPB PRN PRN PRN Reason: Breakthrough pain/agitation Stop: 01/19/20 00:05 Nicardipine HCl 25 mg/ Sodium (Chloride) 250 mls @ 0 mls/hr IVPB INF [facility]; Protocol Last Admin: 12/24/19 16:03 Dose: 250 mls Vancomycin HCl 1.25 gm/ Sodium (Chloride) 250 mls @ 166.667 mls/hr IVPB 1200, 2359 [facility] Last Admin: 12/24/19 12:08 Dose: 250 mls Dexmedetomidine HCl 400 mcg/ (Sodium Chloride) 100 mls @ 0 mls/hr IVPB INF [facility] ; Protocol Last Admin: 12/22/19 17:28 Dose: 100 mls Dextrose/Water (D5w) 1,000 mls @ 75 mls/hr IV .[id number] [facility] Last Admin: 12/24/19 17:00 Dose: 1,000 mls Loratadine (Claritin) 10 mg PO DAILY [facility] Last Admin: 12/24/19 10:03 Dose: 10 mg Lorazepam (Ativan) 2 mg SLOW IVP Q1H PRN PRN Reason: Breakthrough agitation Stop: 01/19/20 00:05 Last Admin: 12/23/19 08:22 Dose: 2 mg Methylprednisolone Sodium Succinate (Solu-Medrol) 40 mg IVP Q6HR [facility] Last Admin: 12/24/19 12:08 Dose: 40 mg Metoclopramide HCl (Reglan) 10 mg PO [facility] Miscellaneous Medication (Pharmacy To Dose) 1 each IVPB PRN PRN PRN Reason: Pharmacy to dose Morphine Sulfate (Morphine) 2 mg SLOW IVP Q1H PRN PRN Reason: BREAKTHROUGH PAIN/Agitation Stop: 01/19/20 00:05 Discontinue Previous Narcotic Pain Medications And Benzodiazepines 1 each FS .ONE [facility] Stop: 01/19/20 00:05 Ondansetron HCl (Zofran Odt) 4 mg PO Q6H PRN PRN Reason: Nausea/Vomiting Pantoprazole Sodium (Protonix) 40 mg IVP DAILY [facility] Last Admin: 12/24/19 10:31 Dose: 40 mg Pregabalin (Lyrica) 400 mg PO BID [facility] Last Admin: 12/24/19 10:05 Dose: 400 mg Propofol (Diprivan) 1,000 mg IV INF PRN; Protocol PRN Reason: TO ACHIEVE GOAL RASS Stop: 01/19/20 00:05 Last Admin: 12/24/19 16:02 Dose: 1,000 mg Propofol (Diprivan Bolus) 20 mg IV Q5MIN PRN PRN Reason: BREAKTHROUGH AGITATION Stop: 01/19/20 00:05 Rocuronium [place] (Zemuron) 100 mg IVP Q1H PRN PRN Reason: Agitation Last Admin: 12/23/19 08:22 Dose: 100 mg Senna/Docusate Sodium (Senokot S) 2 tab PO BID PRN PRN Reason: Constipation Sodium Chloride (Normal Saline Pf) 10 ml FS PRN PRN PRN Reason: RECONSTITUTION Sodium Chloride (Flush - Normal Saline) 10 ml IVF Q12HR [facility] Last Admin: 12/24/19 10:23 Dose: 10 ml Sodium Chloride (Flush - Normal Saline) 10 ml IVF PRN PRN PRN Reason: Saline Flush Venlafaxine HCl (Effexor) 75 mg PO DAILY [facility] Last Admin: 12/24/19 10:02 Dose: 75 mg Vital Signs & Weight: Vital Signs Temp Pulse Resp BP Pulse Ox 12/24/19 16:00 98.5 F 18 12/24/19 15:04 62 123/73 12/24/19 15:02 60 21 H 96 12/24/19 14:00 18 12/24/19 12:00 99.2 F 18 12/24/19 10:56 64 130/78 12/24/19 10:55 65 18 92 L 12/24/19 10:00 18 12/24/19 08:00 98.4 F 19 12/24/19 07:51 71 148/93 H 12/24/19 07:49 66 18 97 12/24/19 06:00 19 Admit Weight 190 lb Weight 186 lb 1.122 oz - Physical Exam General: other (S/I) HEENT: normocephaly Neck: supple neck Cardiac: no murmur Lungs: bibasilar rales Neuro: no lateralizing findings Abdomen: active bowel sounds Extremities: no edema Skin: clear Musculoskeletal: normal range of motion - Labs Result Diagrams: 12/24/19 03:19 12/24/19 08:49 Troponin/CKMB CK-MB (CK-2) 0.8 ng/mL (0-6.6) 12/19/19 10:15 Troponin I 0.022 ng/mL (< 0.028) 12/19/19 17:24 - Telemetry Sinus rhythms and dysrhythmias: sinus rhythm - Assessment/Plan Assessment/Plan: 1. Acute hypoxic respiratory insufficiency 2. Pulmonary hemorrhage 3. Pneumonia 4. HTN, improved. 5. Hypokalemia. 6. Demand ischemia. 7. Pulmonary fibrosis. PLAN: - Hemorrhage may be related to infection or HTN. BP better controlled. Abx for pneumonia. - Normal LV function. - Continue supportive care. - CV stable.
[2019-12-24] MEDS: Metoclopramide 10 MG/10 ML UDCUP PO SCH ×2 (18:01→21:25)
[2019-12-24] MEDS: Bisacodyl 10 MG SUPP PR PRN (18:11)
--- NOTE | 2019-12-24 20:20 | PRG ---
DATE OF SERVICE: 12/24/2019 SUBJECTIVE: David James is clinically stable. He is sedated. OBJECTIVE: VITAL SIGNS: Heart rate is 60s, blood pressure 122/73, respiratory rate 20s, oximetry is in the mid 90s, FiO2 is 45%. LUNGS: Remarkable for coarse equal breath sounds. HEART: Regular rhythm. ABDOMEN: Soft. EXTREMITIES: Without asymmetry. LABORATORY DATA: White count 9.4, hemoglobin 11.9, platelets 190. Sodium 147, potassium 4.7, chloride 115, bicarb 25, BUN 46, creatinine 0.8, glucose 135. Chest radiograph still shows patchy bilateral alveolar infiltrates. IMPRESSION: Alveolar hemorrhage associated with hypertension, possible pneumonia. I doubt he has a vasculitis. I doubt he has malignancy given his extremely functional state 3 days prior to admission. We will continue with supportive care. I explained to the he will not be weanable quickly. Gradual decrease ventilatory support. Critical care time, 30 minutes. Job ID: [id number]
[2019-12-25] MEDS: methylPREDNISolone Sod Succ 40 MG VIAL IVP SCH ×5 (00:22→23:39)
[2019-12-25] MEDS: Vancomycin HCl 1.25 GM in Sodium Chloride 0.9% 250 ML 250 ML IVPB SCH ×2 (00:22→14:42)
[2019-12-25] MEDS: niCARdipine 25 MG in Sodium Chloride 0.9% 250 ML 240 ML IVPB SCH ×2 (02:00→11:54)
[2019-12-25] MEDS: Propofol 1,000 MG/100 ML VIAL IV PRN ×3 (02:02→20:55)
[2019-12-25] MEDS: fentaNYL Citrate/PF 2,000 MCG in Sodium Chloride 0.9% 60 ML IV SCH (02:20)
[2019-12-25 05:25] LABS: Anion Gap 10 mmol/L (10-20); BUN (Urea Nitrogen) 48 mg/dL (8.4-25.7); Calc. Creatinine Clearance 95 mL/min (70-130); Calcium 8.2 mg/dL (7.8-10.44); Carbon Dioxide 28 mmol/L (23-31); Chloride 112 mmol/L (98-107); Estimated GFR-MDRD Greater than 90; Glucose 174 mg/dL (83-110); Potassium 4.5 mmol/L (3.5-5.1); Sodium 145 mmol/L (136-145)
[2019-12-25 05:59] LABS: Band 5 % (5-11); Hemoglobin 11.2 g/dL (14.0-18.0); Lymphocytes 4 % (21-51); MDiff Complete? YES; Mean Corpuscular HGB CONC 33.4 g/dL (32.0-36.0); Mean Corpuscular Hemoglobin 32.2 pg (27.0-31.0); Mean Corpuscular Volume 96.6 fL (78.0-98.0); Mean Platelet Volume 7.8 fL (7.4-10.4); Monocytes 3 % (0-10); Myelocyte 5 % (0-0); Neutrophil 83 % (42-75); Platelet Count 206 thou/uL (130-400); Red Blood Cell (RBC) Count 3.49 mill/uL (4.70-6.10); White Blood Cell (WBC) Count 9.6 thou/uL (4.8-10.8)
[2019-12-25] MEDS: Metoclopramide 10 MG/10 ML UDCUP PO SCH ×4 (06:34→20:47)
[2019-12-25] MEDS: Dextrose 5% in Water 1,000 ML IV SCH (06:44)
--- NOTE | 2019-12-25 07:39 | RAD ---
Portable frontal chest radiograph: 12/25/2019 COMPARISON: 12/24/2019 HISTORY: Ventilated patient FINDINGS: Stable endotracheal tube and nasogastric tube. Scattered areas of airspace disease noted in bilateral perihilar regions, the right base, and the lateral aspect of the mid right lung zone. Stable consolidation within the left base with air bronchogram formation. IMPRESSION: No significant interval change.
[2019-12-25 08:23] LABS: Actual Bicarbonate (HCO3a) 27.5 mEq/L (22-28); Base Excess (BEa) 2.5 mEq/L (-2.0 to +3.0); CO2 Tension 44.1 mmHg (35.0-45.0); Calcium, Ionized 1.19 mmol/L (1.12-1.30); Hemoglobin (Hb) 11.6 g/dL (14.0-18.0); O2 Tension (PaO2) 78.8 mmHg (> 70.0); Potassium - ABG Lab 4.51 mmol/L (3.70-5.30); pH, Arterial 7.41 (7.35-7.45)
[2019-12-25 08:24] LABS: ALV-art Gradient 186.925 (0-20); Puncture Site LRA
[2019-12-25] MEDS: Pantoprazole 40 MG VIAL IVP SCH (09:02)
[2019-12-25] MEDS: Atorvastatin Calcium 20 MG TAB PO SCH (09:02)
[2019-12-25] MEDS: Cefepime 2 GM in Sodium Chloride 0.9% 100 ML IVPB SCH ×2 (09:02→20:47)
[2019-12-25] MEDS: Loratadine 10 MG TAB PO SCH (09:02)
[2019-12-25] MEDS: Finasteride 5 MG TAB PO SCH (09:02)
[2019-12-25] MEDS: Pregabalin 50 MG CAP PO SCH ×2 (09:23→20:48)
[2019-12-25] MEDS: Enoxaparin Sodium 30 MG/0.3 ML SYRINGE SC SCH (09:48)
[2019-12-25 11:31] LABS: Vancomycin, Trough 21.6 ug/mL
[2019-12-25] MEDS ORDERED: Vancomycin HCl 1 GM in Premix Bag 1 BAG IVPB SCH (12:00)
--- NOTE | 2019-12-25 16:48 | EKG ---
Test Reason : SOB Blood Pressure : / mmHG Vent. Rate : 078 BPM Atrial Rate : 078 BPM P-R Int : 168 ms QRS Dur : 088 ms QT Int : 480 ms P-R-T Axes : 025 -16 -14 degrees QTc Int : 547 ms Normal sinus rhythm Minimal voltage criteria for LVH, may be normal variant Anterior infarct , age undetermined Abnormal ECG Confirmed by EARL AGUSTIN DO ([id number]), restaurant expeditor DOMENIC HALLMAN ([id number]) on 12/25/2019 4:47:30 PM Referred By: Confirmed By:EARL AGUSTIN DO
--- NOTE | 2019-12-25 17:52 | PRG ---
DATE OF SERVICE: 12/25/2019 SUBJECTIVE: David James remains stable. OBJECTIVE: VITAL SIGNS: He is afebrile. Heart rates in the 60s, blood pressure 101/54. Oximetry is high earlier. I have turned his PEEP up and FiO2 down this afternoon. LUNGS: Remarkable for coarse equal breath sounds. HEART: Regular rhythm. ABDOMEN: Soft. EXTREMITIES: Without asymmetry. LABORATORY DATA: White count 9.6, hemoglobin 11.2, platelets 206,000. Sodium 145, potassium 4.5, chloride 112, bicarb 20, BUN 48, creatinine 0.8. Chest x-ray still shows bilateral alveolar infiltrates. Intake and output, positive 2107. We will give him a dose of Lasix this evening. IMPRESSION: 1. Respiratory failure. 2. Alveolar hemorrhage, likely secondary to hypertension, possibly combined with pneumonia. One blood culture grew out Micrococcus. I suspect this is a contaminant. 3. Interstitial lung disease, that clinically has been stable. PLAN: Continue supportive care. Decrease ventilatory support. He will receive a dose of Lasix this evening. We will have to watch his blood pressure. Critical Care time 30 minutes spent with the and answered all of her questions. Job ID: [id number]
[2019-12-25] MEDS ORDERED: Dextrose 5% in Water 1,000 ML IV SCH (18:00)
[2019-12-25] MEDS ORDERED: Furosemide 40 MG/4 ML VIAL SLOW IVP SCH (18:00)
--- NOTE | 2019-12-25 18:13 | PDOC.CPN ---
- Subjective Date: 12/25/19 Time: 18:11 Interval history: Sedated intubated. Urinary output decreased. - Review of Systems ROS unobtainable: due to endotracheal tube - Objective Allergies/Adverse Reactions: Allergies Allergy/AdvReac Type Severity Reaction Status Date / Time moxifloxacin HCl Allergy Hives Verified 06/13/16 12:35 [From Avelox] Visit Medications: Current Medications Acetaminophen (Tylenol) 650 mg PO Q4H PRN PRN Reason: Headache/Fever/Mild Pain (1-3) Albuterol/Ipratropium (Duoneb) 3 ml IPPB [id number] [facility] Last Admin: 12/25/19 14:07 Dose: 3 ml Atorvastatin Calcium (Lipitor) 20 mg PO DAILY [facility] Last Admin: 12/25/19 09:02 Dose: 20 mg Bisacodyl (Dulcolax) 10 mg UT Q8H PRN PRN Reason: Constipation Last Admin: 12/24/19 18:11 Dose: 10 mg Cholecalciferol (Vitamin D3) 1,000 units PO DAILY [facility] Last Admin: 12/25/19 09:15 Dose: 1,000 units Diltiazem HCl (Cardizem Cd) 360 mg PO DAILY [facility] Last Admin: 12/25/19 09:02 Dose: 360 mg Enoxaparin Sodium (Lovenox) 30 mg SC 0900 [facility] Last Admin: 12/25/19 09:48 Dose: Not Given Finasteride (Proscar) 5 mg PO DAILY [facility] Last Admin: 12/25/19 09:02 Dose: 5 mg Furosemide (Lasix) 40 mg SLOW IVP NOW [facility] Stop: 12/25/19 20:00 Hydralazine HCl (Apresoline) 10 mg SLOW IVP Q6H PRN PRN Reason: SBP >150 Last Admin: 12/23/19 01:32 Dose: 10 mg Cefepime HCl 2 gm/ Sodium (Chloride) 100 mls @ 200 mls/hr IVPB Q12HR [facility] Last Admin: 12/25/19 09:02 Dose: 100 mls Fentanyl Citrate 2,000 mcg/ (Sodium Chloride) 100 mls @ 0 mls/hr IV INF [facility]; Protocol Stop: 01/19/20 00:05 Last Admin: 12/25/19 02:20 Dose: 100 mls Fentanyl Citrate (Fentanyl Bolus) 250 mls @ 0 mls/hr IVPB PRN PRN PRN Reason: Breakthrough pain/agitation Stop: 01/19/20 00:05 Nicardipine HCl 25 mg/ Sodium (Chloride) 250 mls @ 0 mls/hr IVPB INF [facility]; Protocol Last Admin: 12/25/19 11:54 Dose: 250 mls Dexmedetomidine HCl 400 mcg/ (Sodium Chloride) 100 mls @ 0 mls/hr IVPB INF [facility] ; Protocol Last Admin: 12/22/19 17:28 Dose: 100 mls Dextrose/Water (D5w) 1,000 mls @ 0 mls/hr IV .Q0M [facility] Loratadine (Claritin) 10 mg PO DAILY [facility] Last Admin: 12/25/19 09:02 Dose: 10 mg Lorazepam (Ativan) 2 mg SLOW IVP Q1H PRN PRN Reason: Breakthrough agitation Stop: 01/19/20 00:05 Last Admin: 12/23/19 08:22 Dose: 2 mg Methylprednisolone Sodium Succinate (Solu-Medrol) 40 mg IVP Q6HR [facility] Last Admin: 12/25/19 17:35 Dose: 40 mg Metoclopramide HCl (Reglan) 10 mg PO ACHS [facility] Last Admin: 12/25/19 17:35 Dose: 10 mg Miscellaneous Medication (Pharmacy To Dose) 1 each IVPB PRN PRN PRN Reason: Pharmacy to dose Morphine Sulfate (Morphine) 2 mg SLOW IVP Q1H PRN PRN Reason: BREAKTHROUGH PAIN/Agitation Stop: 01/19/20 00:05 Discontinue Previous Narcotic Pain Medications And Benzodiazepines 1 each FS .ONE [facility] Stop: 01/19/20 00:05 Ondansetron HCl (Zofran Odt) 4 mg PO Q6H PRN PRN Reason: Nausea/Vomiting Pantoprazole Sodium (Protonix) 40 mg IVP DAILY [facility] Last Admin: 12/25/19 09:02 Dose: 40 mg Pregabalin (Lyrica) 400 mg PO BID [facility] Last Admin: 12/25/19 09:23 Dose: 400 mg Propofol (Diprivan) 1,000 mg IV INF PRN; Protocol PRN Reason: TO ACHIEVE GOAL RASS Stop: 01/19/20 00:05 Last Admin: 12/25/19 10:11 Dose: 1,000 mg Propofol (Diprivan Bolus) 20 mg IV Q5MIN PRN PRN Reason: BREAKTHROUGH AGITATION Stop: 01/19/20 00:05 Rocuronium [place] (Zemuron) 100 mg IVP Q1H PRN PRN Reason: Agitation Last Admin: 12/23/19 08:22 Dose: 100 mg Senna/Docusate Sodium (Senokot S) 2 tab PO BID PRN PRN Reason: Constipation Sodium Chloride (Normal Saline Pf) 10 ml FS PRN PRN PRN Reason: RECONSTITUTION Sodium Chloride (Flush - Normal Saline) 10 ml IVF Q12HR [facility] Last Admin: 12/25/19 09:03 Dose: 10 ml Sodium Chloride (Flush - Normal Saline) 10 ml IVF PRN PRN PRN Reason: Saline Flush Venlafaxine HCl (Effexor) 75 mg PO DAILY [facility] Last Admin: 12/25/19 09:02 Dose: 75 mg Vital Signs & Weight: Vital Signs Temp Pulse Pulse Pulse Resp BP BP 12/25/19 17:57 18 12/25/19 17:00 99.0 F 12/25/19 16:00 21 H 12/25/19 15:10 64 12/25/19 14:00 19 12/25/19 13:36 64 12/25/19 12:00 98.9 F 23 H 12/25/19 11:17 60 12/25/19 10:00 23 H 12/25/19 09:15 58 L 63 122/70 127/78 12/25/19 08:17 55 L 12/25/19 08:00 24 H 12/25/19 07:00 98.7 F Pulse Ox Pulse Ox Pulse Ox 12/25/19 17:57 12/25/19 17:00 12/25/19 16:00 12/25/19 15:10 12/25/19 14:00 12/25/19 13:36 12/25/19 12:00 12/25/19 11:17 12/25/19 10:00 12/25/19 09:15 99 93 L 12/25/19 08:17 12/25/19 08:00 98 12/25/19 07:00 Admit Weight 190 lb Weight 183 lb 13.848 oz - Physical Exam General: other (S/I) HEENT: normocephaly Neck: supple neck Cardiac: regular rate and rhythm Lungs: scattered rhonchi Neuro: no lateralizing findings Abdomen: active bowel sounds Extremities: 1+ LE edema Skin: clear Musculoskeletal: no pain - Labs Result Diagrams: 12/25/19 04:30 12/25/19 04:30 Troponin/CKMB CK-MB (CK-2) 0.8 ng/mL (0-6.6) 12/19/19 10:15 Troponin I 0.022 ng/mL (< 0.028) 12/19/19 17:24 - Telemetry Sinus rhythms and dysrhythmias: sinus rhythm - Assessment/Plan Assessment/Plan: 1. Acute hypoxic respiratory insufficiency 2. Pulmonary hemorrhage 3. Pneumonia 4. HTN, improved. 5. Hypokalemia. 6. Demand ischemia. 7. Pulmonary fibrosis. PLAN: - Hemorrhage may be related to infection or HTN. BP better controlled. Abx for pneumonia. - Normal LV function. - Will give one dose of Lasix as he has been receiving NS and tube feeds may be a little volume up. BP borderline. Hopefully he will tolerate lsix. - Continue supportive care. - Critical Care Time Critical care time (mins): 30
--- NOTE | 2019-12-25 20:21 | PDOC.HOSPP ---
- Subjective Encounter Date: 12/25/19 Encounter Time: 19:00 Subjective: f/u for resp failure, PNA on mech ventilation. Nursing reports attempts to decrease sedation. UOP decreased with some increase after one dose Lasix IV. - Objective Vital Signs & Weight: Vital Signs (12 hours) Temp Pulse Pulse Pulse Resp BP BP 12/25/19 18:31 66 119/72 12/25/19 17:57 18 12/25/19 17:00 99.0 F 12/25/19 16:00 21 H 12/25/19 15:10 64 12/25/19 14:00 19 12/25/19 13:36 64 12/25/19 12:00 98.9 F 23 H 12/25/19 11:17 60 12/25/19 10:00 23 H 12/25/19 09:15 58 L 63 122/70 BP Pulse Ox Pulse Ox 12/25/19 18:31 12/25/19 17:57 12/25/19 17:00 12/25/19 16:00 12/25/19 15:10 12/25/19 14:00 12/25/19 13:36 12/25/19 12:00 12/25/19 11:17 12/25/19 10:00 12/25/19 09:15 127/78 99 93 L Weight Admit Weight 190 lb Weight 183 lb 13.848 oz Most Recent Monitor Data Heart Rate from ECG 68 NIBP 132/76 NIBP BP-Mean 94 Respiration from ECG 19 SpO2 90 I&O: 12/24/19 12/25/19 12/26/19 06:59 06:59 06:59 Intake Total 2797.6 4213.5 2386 Output Total 1930 2105 505 Balance 867.6 2108.5 1881 Result Diagrams: 12/25/19 04:30 12/25/19 04:30 Additional Labs: Microbiology 12/19/19 10:20 Venous blood - Right Arm Blood Culture - Preliminary Gram Positive Cocci 12/19/19 10:20 Venous blood - Left Arm Blood Culture - Preliminary Specimen has been received and culture in progress. No Growth to date. 12/19/19 10:20 Venous blood - Left Arm Blood Culture - Preliminary NO GROWTH AT 48 HOURS Laboratory Tests 12/19/19 12/19/19 12/19/19 10:15 13:02 17:24 WBC 14.3 H Hgb 13.3 L Neutrophils % 82.6 H Neutrophils % (Manual) Band Neuts % (Manual) Potassium Creatinine Lactic Acid 3.3 H B-Natriuretic Peptide 420.0 H 12/20/19 12/20/19 12/21/19 05:37 05:37 03:39 WBC 18.2 H Hgb 12.1 L Neutrophils % Neutrophils % (Manual) 77 H 69 Band Neuts % (Manual) 19 H 25 H Potassium 3.7 Creatinine 1.02 Lactic Acid B-Natriuretic Peptide Radiology Reviewed by me: Yes (PCXR - patchy infiltrates bilat, tubes/lines in place) EKG Reviewed by me: Yes (Tele - SR) Hospitalist ROS - Medication Medications: Active Medications Generic Name Dose Route Start Last Admin Trade Name Freq PRN Reason Stop Dose Admin Albuterol/Ipratropium 3 ml 12/19/19 18:30 12/25/19 18:30 Duoneb IPPB 3 ml [id number] [facility] Administration Atorvastatin Calcium 20 mg 12/20/19 09:00 12/25/19 09:02 Lipitor PO 20 mg DAILY [facility] Administration Bisacodyl 10 mg 12/24/19 15:42 12/24/19 18:11 Dulcolax MD 10 mg Q8H PRN Administration Constipation Cholecalciferol 1,000 units 12/20/19 09:00 12/25/19 09:15 Vitamin D3 PO 1,000 units DAILY [facility] Administration Diltiazem HCl 360 mg 12/20/19 09:00 12/25/19 09:02 Cardizem Cd PO 360 mg DAILY [facility] Administration Enoxaparin Sodium 30 mg 12/21/19 09:00 12/25/19 09:48 Lovenox SC Not Given 0900 [facility] Finasteride 5 mg 12/20/19 09:00 12/25/19 09:02 Proscar PO 5 mg DAILY [facility] Administration Hydralazine HCl 10 mg 12/19/19 17:53 12/23/19 01:32 Apresoline SLOW IVP 10 mg Q6H PRN Administration SBP >150 Cefepime HCl 2 gm/ Sodium 100 mls @ 200 mls/hr 12/19/19 21:00 12/25/19 09:02 Chloride IVPB 100 mls Q12HR [facility] Administration Fentanyl Citrate 2,000 mcg/ 100 mls @ 0 mls/hr 12/20/19 00:05 12/25/19 02:20 Sodium Chloride IV 01/19/20 00:05 100 mls INF [facility] Administration Protocol Per Protocol Nicardipine HCl 25 mg/ Sodium 250 mls @ 0 mls/hr 12/20/19 00:30 12/25/19 11: 54 Chloride IVPB 250 mls INF [facility] Administration Protocol Titrate Dexmedetomidine HCl 400 mcg/ 100 mls @ 0 mls/hr 12/22/19 17:30 12/22/19 17:28 Sodium Chloride IVPB 100 mls INF [facility] Administration Protocol Per Protocol Loratadine 10 mg 12/20/19 09:00 12/25/19 09:02 Claritin PO 10 mg DAILY [facility] Administration Lorazepam 2 mg 12/20/19 00:05 12/23/19 08:22 Ativan SLOW IVP 01/19/20 00:05 2 mg Q1H PRN Administration Breakthrough agitation Methylprednisolone Sodium Succinate 40 mg 12/19/19 18:00 12/25/19 17:35 Solu-Medrol IVP 40 mg Q6HR [facility] Administration Metoclopramide HCl 10 mg 12/24/19 17:00 12/25/19 17:35 Reglan PO 10 mg ACHS [facility] Administration Pantoprazole Sodium 40 mg 12/21/19 09:00 12/25/19 09:02 Protonix IVP 40 mg DAILY [facility] Administration Pregabalin 400 mg 12/19/19 21:00 12/25/19 09:23 Lyrica PO 400 mg BID [facility] Administration Propofol 1,000 mg 12/20/19 00:05 12/25/19 10:11 Diprivan IV 01/19/20 00:05 1,000 mg INF PRN Administration TO ACHIEVE GOAL RASS Protocol Rocuronium [place] 100 mg 12/20/19 00:17 12/23/19 08:22 Zemuron IVP 100 mg Q1H PRN Administration Agitation Sodium Chloride 10 ml 12/20/19 21:00 12/25/19 09:03 Flush - Normal Saline IVF 10 ml Q12HR [facility] Administration Venlafaxine HCl 75 mg 12/20/19 09:00 12/25/19 09:02 Effexor PO 75 mg DAILY [facility] Administration - Exam General - other findings: opens eyes to name/stimulation/voice Eye: PERRL, anicteric sclera ENT: normocephalic atraumatic, no oropharyngeal lesions ENT - other findings: ETT/OGT in place Neck: supple, symmetric, no JVD, no thyromegaly, no carotid bruit Heart: RRR, no murmur, no gallops, no rubs, normal peripheral pulses Heart - other findings: S1, S2 Respiratory: normal chest expansion, no tachypnea Respiratory - other findings: diminished in bases, occasional scattered rhonchi Gastrointestinal: soft, non-tender, non-distended, normal bowel sounds, no palpable masses Gastrointestinal - other findings: Albert with small amount of keegan urine Extremities: no cyanosis, no clubbing, no edema Skin: normal turgor, no lesions Neurological - other findings: opens eyes, follows simple commands Musculoskeletal: generalized weakness Psychiatric: oriented to person Hosp A/P (1) Acute respiratory failure with hypoxia Code(s): J96.01 - ACUTE RESPIRATORY FAILURE WITH HYPOXIA Status: Acute Plan: Continue mech vent support, wean sedation as clinically tolerated (2) Severe sepsis Code(s): A41.9 - SEPSIS, UNSPECIFIED ORGANISM; R65.20 - SEVERE SEPSIS WITHOUT SEPTIC SHOCK Status: Acute Plan: Improved with IV abx (3) Bacterial pneumonia Code(s): J15.9 - UNSPECIFIED BACTERIAL PNEUMONIA Status: Acute Plan: Suspected with Gm + cocci, continue Cefepime IV (4) Hypokalemia Code(s): E87.6 - HYPOKALEMIA Status: Acute Plan: Improved, serial K+ monitoring (5) HTN (hypertension) Code(s): I10 - ESSENTIAL (PRIMARY) HYPERTENSION Status: Chronic Qualifiers: Hypertension type: essential hypertension Qualified Code(s): I10 - Essential (primary) hypertension Plan: Improved, continue supportive mgmt, resume home BP regimen - Plan continue antibiotics, foster care social worker, respiratory therapy, DVT proph w/SCDs Continue critical support SIMV for resp failure, FIO2 40% PCXR daily Continue Cefepime Nutritional support with TF's D5W @ 100ml/h AM lab: CBC, Vanc Trough PCXR in am
[2019-12-25] MEDS: Dextrose 5 % And 0.9 % NaCl 1,000 ML IV SCH (20:50)
[2019-12-26] MEDS: Dextrose 5 % And 0.9 % NaCl 1,000 ML IV SCH ×3 (04:34→20:53)
[2019-12-26] MEDS: Propofol 1,000 MG/100 ML VIAL IV PRN ×3 (04:45→20:41)
[2019-12-26 05:10] LABS: Band 4 % (5-11); Hemoglobin 10.5 g/dL (14.0-18.0); Lymphocytes 4 % (21-51); MDiff Complete? YES; Mean Corpuscular HGB CONC 32.9 g/dL (32.0-36.0); Mean Corpuscular Hemoglobin 31.6 pg (27.0-31.0); Mean Corpuscular Volume 96.3 fL (78.0-98.0); Mean Platelet Volume 7.6 fL (7.4-10.4); Metamyelocyte 2 % (0-0); Monocytes 2 % (0-10); Neutrophil 88 % (42-75); Platelet Count 221 thou/uL (130-400); Platelet Morphology Comment Appears Adequate; RBC Distribution Width 13.8 % (11.5-14.5); Red Blood Cell (RBC) Count 3.33 mill/uL (4.70-6.10); White Blood Cell (WBC) Count 9.6 thou/uL (4.8-10.8)
[2019-12-26] MEDS: methylPREDNISolone Sod Succ 40 MG VIAL IVP SCH ×4 (06:16→18:39)
[2019-12-26 07:54] LABS: Base Excess (BEa) 2.8 mEq/L (-2.0 to +3.0); CO2 Tension 45.6 mmHg (35.0-45.0); Calcium, Ionized 1.18 mmol/L (1.12-1.30); Carboxyhemoglobin (COHb) 1.1 gm% (0.0-3.0); Hemoglobin (Hb) 10.9 g/dL (14.0-18.0); O2 Tension (PaO2) 73.3 mmHg (> 70.0); Potassium - ABG Lab 4.32 mmol/L (3.70-5.30); pH, Arterial 7.41 (7.35-7.45)
[2019-12-26 07:55] LABS: Puncture Site RRA
[2019-12-26] MEDS ORDERED: Furosemide 40 MG/4 ML VIAL SLOW IVP SCH (08:15)
[2019-12-26] MEDS: Metoclopramide 10 MG/10 ML UDCUP PO SCH ×4 (08:52→21:14)
[2019-12-26] MEDS: Cefepime 2 GM in Sodium Chloride 0.9% 100 ML IVPB SCH ×2 (08:52→20:42)
[2019-12-26] MEDS: Pantoprazole 40 MG VIAL IVP SCH (08:52)
[2019-12-26] MEDS: Loratadine 10 MG TAB PO SCH (08:54)
[2019-12-26] MEDS: Atorvastatin Calcium 20 MG TAB PO SCH (08:54)
[2019-12-26] MEDS: Finasteride 5 MG TAB PO SCH (08:54)
[2019-12-26] MEDS: Pregabalin 50 MG CAP PO SCH ×2 (09:34→21:14)
[2019-12-26] MEDS: fentaNYL Citrate/PF 2,000 MCG in Sodium Chloride 0.9% 60 ML IV SCH (09:35)
[2019-12-26] MEDS: Enoxaparin Sodium 30 MG/0.3 ML SYRINGE SC SCH (09:35)
--- NOTE | 2019-12-26 10:10 | RAD ---
PORTABLE CHEST: HISTORY: Respiratory distress. COMPARISON: Prior day's exam. FINDINGS: Heart size is enlarged. Endotracheal tube remains in satisfactory position. NG tube is difficult to visualize but is below the hemidiaphragm. Parenchymal lung changes are fairly similar to the prior exam. IMPRESSION: Stable exam. POS: TPC
[2019-12-26] MEDS ORDERED: methylPREDNISolone Sod Succ 40 MG VIAL IVP SCH (12:30)
--- NOTE | 2019-12-26 12:49 | PRG ---
DATE OF SERVICE: 12/26/2019 SUBJECTIVE: David James remains mechanically ventilated. OBJECTIVE: VITAL SIGNS: Blood pressure 131/74, heart rate is in the 60s, respiratory rates in the 20s. His plateau pressures 24 with an exhaled tidal volume of right around 30. LUNGS: Still remarkable for rhonchi bilaterally. HEART: Regular rhythm. ABDOMEN: Soft. EXTREMITIES: Without edema. NEUROLOGIC: Nonfocal. When he is not sedated, he moves everything. LABORATORY DATA: White count 9.6, hemoglobin 10.5, platelets 221. Electrolytes are unremarkable. BUN 48, creatinine 0.8. IMPRESSION: 1. Alveolar hemorrhage associated with a pneumonia and poorly controlled hypertension. 2. Interstitial lung disease. 3. ? some component of diastolic heart failure. Echocardiogram was normal, but he did have grade 1/3 diastolic dysfunction. 4. We will continue with ventilatory and nutritional support, antimicrobial therapy. Because of his pulmonary hemorrhage, he will be slow to wean from mechanical ventilation, but he does appear to be slowly improving. We will decrease his steroid dosing. I doubt at his age that he has developed a vasculitis leading to pulmonary hemorrhage. CRITICAL CARE TIME: 30 minutes. Job ID: [id number]
--- NOTE | 2019-12-26 13:49 | PDOC.CPN ---
- Subjective Date: 12/26/19 Time: 13:48 Interval history: Remains sedated intubated. Urine output responded to IV lasix. - Review of Systems ROS unobtainable: due to endotracheal tube - Objective Allergies/Adverse Reactions: Allergies Allergy/AdvReac Type Severity Reaction Status Date / Time moxifloxacin HCl Allergy Hives Verified 06/13/16 12:35 [From Avelox] Visit Medications: Current Medications Acetaminophen (Tylenol) 650 mg PO Q4H PRN PRN Reason: Headache/Fever/Mild Pain (1-3) Albuterol/Ipratropium (Duoneb) 3 ml IPPB [id number] [facility] Last Admin: 12/26/19 10:31 Dose: 3 ml Atorvastatin Calcium (Lipitor) 20 mg PO DAILY [facility] Last Admin: 12/26/19 08:54 Dose: 20 mg Bisacodyl (Dulcolax) 10 mg PA Q8H PRN PRN Reason: Constipation Last Admin: 12/24/19 18:11 Dose: 10 mg Cholecalciferol (Vitamin D3) 1,000 units PO DAILY [facility] Last Admin: 12/26/19 08:53 Dose: 1,000 units Diltiazem HCl (Cardizem Cd) 360 mg PO DAILY [facility] Last Admin: 12/26/19 08:53 Dose: 360 mg Enoxaparin Sodium (Lovenox) 30 mg SC 0900 [facility] Last Admin: 12/26/19 09:35 Dose: 30 mg Finasteride (Proscar) 5 mg PO DAILY [facility] Last Admin: 12/26/19 08:54 Dose: 5 mg Hydralazine HCl (Apresoline) 10 mg SLOW IVP Q6H PRN PRN Reason: SBP >150 Last Admin: 12/23/19 01:32 Dose: 10 mg Cefepime HCl 2 gm/ Sodium (Chloride) 100 mls @ 200 mls/hr IVPB Q12HR [facility] Last Admin: 12/26/19 08:52 Dose: 100 mls Fentanyl Citrate 2,000 mcg/ (Sodium Chloride) 100 mls @ 0 mls/hr IV INF [facility]; Protocol Stop: 01/19/20 00:05 Last Admin: 12/26/19 09:35 Dose: 100 mls Fentanyl Citrate (Fentanyl Bolus) 250 mls @ 0 mls/hr IVPB PRN PRN PRN Reason: Breakthrough pain/agitation Stop: 01/19/20 00:05 Nicardipine HCl 25 mg/ Sodium (Chloride) 250 mls @ 0 mls/hr IVPB INF [facility]; Protocol Last Admin: 12/25/19 11:54 Dose: 250 mls Dexmedetomidine HCl 400 mcg/ (Sodium Chloride) 100 mls @ 0 mls/hr IVPB INF [facility] ; Protocol Last Admin: 12/22/19 17:28 Dose: 100 mls Dextrose/Water (D5w) 1,000 mls @ 0 mls/hr IV .Q0M [facility] Dextrose/Sodium Chloride (D5 0.9% Ns) 1,000 mls @ 100 mls/hr IV .Q10H [facility] Last Admin: 12/26/19 04:34 Dose: 1,000 mls Loratadine (Claritin) 10 mg PO DAILY [facility] Last Admin: 12/26/19 08:54 Dose: 10 mg Lorazepam (Ativan) 2 mg SLOW IVP Q1H PRN PRN Reason: Breakthrough agitation Stop: 01/19/20 00:05 Last Admin: 12/23/19 08:22 Dose: 2 mg Methylprednisolone Sodium Succinate (Solu-Medrol) 20 mg IVP Q6HR [facility] Methylprednisolone Sodium Succinate (Solu-Medrol) 20 mg IVP NOW [facility] Stop: 12/26/19 14:30 Last Admin: 12/26/19 12:34 Dose: 20 mg Metoclopramide HCl (Reglan) 10 mg PO ACHS [facility] Last Admin: 12/26/19 12:31 Dose: 10 mg Miscellaneous Medication (Pharmacy To Dose) 1 each IVPB PRN PRN PRN Reason: Pharmacy to dose Morphine Sulfate (Morphine) 2 mg SLOW IVP Q1H PRN PRN Reason: BREAKTHROUGH PAIN/Agitation Stop: 01/19/20 00:05 Last Admin: 12/26/19 08:52 Dose: 2 mg Discontinue Previous Narcotic Pain Medications And Benzodiazepines 1 each FS .ONE [facility] Stop: 01/19/20 00:05 Ondansetron HCl (Zofran Odt) 4 mg PO Q6H PRN PRN Reason: Nausea/Vomiting Pantoprazole Sodium (Protonix) 40 mg IVP DAILY [facility] Last Admin: 12/26/19 08:52 Dose: 40 mg Pregabalin (Lyrica) 400 mg PO BID [facility] Last Admin: 12/26/19 09:34 Dose: 400 mg Propofol (Diprivan) 1,000 mg IV INF PRN; Protocol PRN Reason: TO ACHIEVE GOAL RASS Stop: 01/19/20 00:05 Last Admin: 12/26/19 12:50 Dose: 1,000 mg Propofol (Diprivan Bolus) 20 mg IV Q5MIN PRN PRN Reason: BREAKTHROUGH AGITATION Stop: 01/19/20 00:05 Rocuronium [place] (Zemuron) 100 mg IVP Q1H PRN PRN Reason: Agitation Last Admin: 12/23/19 08:22 Dose: 100 mg Senna/Docusate Sodium (Senokot S) 2 tab PO BID PRN PRN Reason: Constipation Sodium Chloride (Normal Saline Pf) 10 ml FS PRN PRN PRN Reason: RECONSTITUTION Sodium Chloride (Flush - Normal Saline) 10 ml IVF Q12HR [facility] Last Admin: 12/26/19 09:00 Dose: 10 ml Sodium Chloride (Flush - Normal Saline) 10 ml IVF PRN PRN PRN Reason: Saline Flush Venlafaxine HCl (Effexor) 75 mg PO DAILY [facility] Last Admin: 12/26/19 08:53 Dose: 75 mg Vital Signs & Weight: Vital Signs Temp Pulse Pulse Pulse Resp BP BP 12/26/19 11:23 85 85 126/77 12/26/19 10:37 89 12/26/19 07:35 68 131/74 12/26/19 06:00 99.1 F 18 12/26/19 04:00 18 12/26/19 02:20 65 130/77 12/26/19 02:00 18 BP Pulse Ox Pulse Ox 12/26/19 11:23 133/73 95 96 12/26/19 10:37 12/26/19 07:35 12/26/19 06:00 12/26/19 04:00 12/26/19 02:20 12/26/19 02:00 Admit Weight 190 lb Weight 184 lb 15.485 oz - Physical Exam General: alert & oriented x3 HEENT: mucus membranes moist Neck: supple neck Cardiac: regular rate and rhythm Lungs: scattered rhonchi Neuro: no lateralizing findings Abdomen: active bowel sounds Extremities: no edema Skin: clear Musculoskeletal: normal range of motion - Labs Result Diagrams: 12/26/19 04:20 12/25/19 04:30 Troponin/CKMB CK-MB (CK-2) 0.8 ng/mL (0-6.6) 12/19/19 10:15 Troponin I 0.022 ng/mL (< 0.028) 12/19/19 17:24 - Telemetry Sinus rhythms and dysrhythmias: sinus rhythm - Assessment/Plan Assessment/Plan: 1. Acute hypoxic respiratory insufficiency 2. Pulmonary hemorrhage 3. Pneumonia 4. HTN, improved. 5. Hypokalemia. 6. Demand ischemia. 7. Pulmonary fibrosis. PLAN: - Hemorrhage may be related to infection or HTN. BP better controlled. Abx for pneumonia. - Normal LV function. - One dose IV lasix today. - Continue supportive care.
--- NOTE | 2019-12-26 18:55 | PDOC.HOSPP ---
- Subjective Encounter Date: 12/26/19 Encounter Time: 17:40 Subjective: f/u for resp failure with PNA/alveolar hemorrhage on current Cefepime/ Solumedrol but remains mech ventilated. Slow improvement and weaning slowly. - Objective Vital Signs & Weight: Vital Signs (12 hours) Temp Pulse Pulse Pulse Resp BP BP 12/26/19 16:00 18 12/26/19 14:45 75 12/26/19 14:00 21 H 12/26/19 12:00 99.1 F 20 12/26/19 11:23 85 85 126/77 12/26/19 10:37 89 12/26/19 10:00 21 H 12/26/19 08:00 99.1 F 25 H 12/26/19 07:35 68 131/74 BP Pulse Ox Pulse Ox Pulse Ox 12/26/19 16:00 12/26/19 14:45 12/26/19 14:00 12/26/19 12:00 12/26/19 11:23 133/73 95 96 12/26/19 10:37 12/26/19 10:00 12/26/19 08:00 98 12/26/19 07:35 Weight Admit Weight 190 lb Weight 184 lb 15.485 oz Most Recent Monitor Data Heart Rate from ECG 68 NIBP 127/78 NIBP BP-Mean 94 Respiration from ECG 19 SpO2 98 I&O: 12/25/19 12/26/19 12/27/19 06:59 06:59 06:59 Intake Total 4213.5 4369.2 290 Output Total 2105 1970 2635 Balance 2108.5 2399.2 -2345 Result Diagrams: 12/26/19 04:20 12/25/19 04:30 Additional Labs: Microbiology 12/19/19 10:20 Venous blood - Right Arm Blood Culture - Preliminary Gram Positive Cocci 12/19/19 10:20 Venous blood - Left Arm Blood Culture - Preliminary Specimen has been received and culture in progress. No Growth to date. 12/19/19 10:20 Venous blood - Left Arm Blood Culture - Preliminary NO GROWTH AT 48 HOURS Laboratory Tests 12/19/19 12/19/19 12/19/19 10:15 13:02 17:24 WBC 14.3 H Hgb 13.3 L Neutrophils % 82.6 H Neutrophils % (Manual) Band Neuts % (Manual) Sodium Potassium BUN Creatinine Lactic Acid 3.3 H B-Natriuretic Peptide 420.0 H Vancomycin Trough 12/20/19 12/20/19 12/21/19 05:37 05:37 03:39 WBC 18.2 H Hgb 12.1 L Neutrophils % Neutrophils % (Manual) 77 H 69 Band Neuts % (Manual) 19 H 25 H Sodium Potassium 3.7 BUN Creatinine 1.02 Lactic Acid B-Natriuretic Peptide Vancomycin Trough 12/24/19 12/25/19 08:49 10:46 WBC Hgb Neutrophils % Neutrophils % (Manual) Band Neuts % (Manual) Sodium 147 H Potassium BUN 46 H Creatinine Lactic Acid B-Natriuretic Peptide Vancomycin Trough 21.6 Radiology Reviewed by me: Yes (PCXR - bilat patchy infiltrates L>R, ETT in place ) EKG Reviewed by me: Yes (Tele - SR) Hospitalist ROS - Medication Medications: Active Medications Generic Name Dose Route Start Last Admin Trade Name Freq PRN Reason Stop Dose Admin Albuterol/Ipratropium 3 ml 12/19/19 18:30 12/26/19 14:02 Duoneb IPPB 3 ml [id number] JOSESITO Administration Atorvastatin Calcium 20 mg 12/20/19 09:00 12/26/19 08:54 Lipitor PO 20 mg DAILY JOSESITO Administration Bisacodyl 10 mg 12/24/19 15:42 12/24/19 18:11 Dulcolax [place] 10 mg Q8H PRN Administration Constipation Cholecalciferol 1,000 units 12/20/19 09:00 12/26/19 08:53 Vitamin D3 PO 1,000 units DAILY JOSESITO Administration Diltiazem HCl 360 mg 12/20/19 09:00 12/26/19 08:53 Cardizem Cd PO 360 mg DAILY JOSESITO Administration Enoxaparin Sodium 30 mg 12/21/19 09:00 12/26/19 09:35 Lovenox SC 30 mg 0900 JOSESITO Administration Finasteride 5 mg 12/20/19 09:00 12/26/19 08:54 Proscar PO 5 mg DAILY JOSESITO Administration Hydralazine HCl 10 mg 12/19/19 17:53 12/23/19 01:32 Apresoline SLOW IVP 10 mg Q6H PRN Administration SBP >150 Cefepime HCl 2 gm/ Sodium 100 mls @ 200 mls/hr 12/19/19 21:00 12/26/19 08:52 Chloride IVPB 100 mls Q12HR JSOESITO Administration Fentanyl Citrate 2,000 mcg/ 100 mls @ 0 mls/hr 12/20/19 00:05 12/26/19 09:35 Sodium Chloride IV 01/19/20 00:05 100 mls INF JOSESITO Administration Protocol Per Protocol Nicardipine HCl 25 mg/ Sodium 250 mls @ 0 mls/hr 12/20/19 00:30 12/25/19 11: 54 Chloride IVPB 250 mls INF JOSESITO Administration Protocol Titrate Dexmedetomidine HCl 400 mcg/ 100 mls @ 0 mls/hr 12/22/19 17:30 12/22/19 17:28 Sodium Chloride IVPB 100 mls INF JOSESITO Administration Protocol Per Protocol Loratadine 10 mg 12/20/19 09:00 12/26/19 08:54 Claritin PO 10 mg DAILY JOSESITO Administration Lorazepam 2 mg 12/20/19 00:05 12/23/19 08:22 Ativan SLOW IVP 01/19/20 00:05 2 mg Q1H PRN Administration Breakthrough agitation Methylprednisolone Sodium Succinate 20 mg 12/26/19 18:00 12/26/19 18:39 Solu-Medrol IVP 20 mg Q6HR JOSESITO Administration Metoclopramide HCl 10 mg 12/24/19 17:00 12/26/19 18:38 Reglan PO 10 mg ACHS JOSESITO Administration Morphine Sulfate 2 mg 12/20/19 00:05 12/26/19 08:52 Morphine SLOW IVP 01/19/20 00:05 2 mg Q1H PRN Administration BREAKTHROUGH PAIN/Agitation Pantoprazole Sodium 40 mg 12/21/19 09:00 12/26/19 08:52 Protonix IVP 40 mg DAILY JOSESITO Administration Pregabalin 400 mg 12/19/19 21:00 12/26/19 09:34 Lyrica PO 400 mg BID JOSESITO Administration Propofol 1,000 mg 12/20/19 00:05 12/26/19 12:50 Diprivan IV 01/19/20 00:05 1,000 mg INF PRN Administration TO ACHIEVE GOAL RASS Protocol Rocuronium [place] 100 mg 12/20/19 00:17 12/23/19 08:22 Zemuron IVP 100 mg Q1H PRN Administration Agitation Sodium Chloride 10 ml 12/20/19 21:00 12/26/19 09:00 Flush - Normal Saline IVF 10 ml Q12HR JOSESITO Administration Venlafaxine HCl 75 mg 12/20/19 09:00 12/26/19 08:53 Effexor PO 75 mg DAILY JOSESITO Administration - Exam General - other findings: sedate, opens eyes briefly to name, mech ventil Eye: PERRL, anicteric sclera ENT: normocephalic atraumatic, no oropharyngeal lesions ENT - other findings: ETT/OGT in place Neck: supple, symmetric, no JVD, no thyromegaly Heart: RRR, no murmur, no gallops, no rubs, normal peripheral pulses Heart - other findings: S1, S2 Respiratory: no tachypnea Respiratory - other findings: scattered basilar coarse sounds, occasional rhonchi Gastrointestinal: soft, non-tender, non-distended, normal bowel sounds, no palpable masses Extremities: no cyanosis, 1+ LE edema Skin: normal turgor, no lesions Neurological - other findings: opens eyes to voice Psychiatric: oriented to person, somnolent, lethargic Hosp A/P (1) Acute respiratory failure with hypoxia Code(s): J96.01 - ACUTE RESPIRATORY FAILURE WITH HYPOXIA Status: Acute Plan: Continue SIMV FIO2 40%, RR 18, continue slow wean as clinically tolerated (2) Bacterial pneumonia Code(s): J15.9 - UNSPECIFIED BACTERIAL PNEUMONIA Status: Acute Plan: Persistent patchy infiltrates, continue Cefepime/Solumedrol (3) Hypokalemia Code(s): E87.6 - HYPOKALEMIA Status: Acute Plan: Improved, serial K+ monitoring (4) HTN (hypertension) Code(s): I10 - ESSENTIAL (PRIMARY) HYPERTENSION Status: Chronic Qualifiers: Hypertension type: essential hypertension Qualified Code(s): I10 - Essential (primary) hypertension Plan: Stable, continue Diltiazem (5) Severe sepsis Code(s): A41.9 - SEPSIS, UNSPECIFIED ORGANISM; R65.20 - SEVERE SEPSIS WITHOUT SEPTIC SHOCK Status: Acute - Plan continue antibiotics, social media designer, respiratory therapy, DVT proph w/SCDs Continue critical support SIMV for resp failure, FIO2 40% PCXR daily Continue Cefepime Nutritional support with TF's D5W @ 75ml/h AM lab: CBC, Vanc Trough PCXR in am
[2019-12-27] MEDS: methylPREDNISolone Sod Succ 40 MG VIAL IVP SCH ×4 (00:37→16:30)
[2019-12-27] MEDS: Dextrose 5 % And 0.9 % NaCl 1,000 ML IV SCH ×3 (02:00→14:00)
[2019-12-27] MEDS: Propofol 1,000 MG/100 ML VIAL IV PRN ×4 (05:24→22:23)
[2019-12-27 05:56] LABS: Hemoglobin 10.6 g/dL (14.0-18.0); Mean Corpuscular HGB CONC 31.9 g/dL (32.0-36.0); Mean Corpuscular Hemoglobin 30.8 pg (27.0-31.0); Mean Corpuscular Volume 96.7 fL (78.0-98.0); Mean Platelet Volume 7.7 fL (7.4-10.4); Platelet Count 221 thou/uL (130-400); RBC Distribution Width 13.9 % (11.5-14.5); Red Blood Cell (RBC) Count 3.44 mill/uL (4.70-6.10); White Blood Cell (WBC) Count 8.7 thou/uL (4.8-10.8)
[2019-12-27 06:03] LABS: Anion Gap 5 mmol/L (10-20); BUN (Urea Nitrogen) 44 mg/dL (8.4-25.7); Calc. Creatinine Clearance 91 mL/min (70-130); Calcium 7.9 mg/dL (7.8-10.44); Carbon Dioxide 33 mmol/L (23-31); Chloride 111 mmol/L (98-107); Estimated GFR-MDRD 90; Glucose 201 mg/dL (83-110); Potassium 4.4 mmol/L (3.5-5.1); Sodium 145 mmol/L (136-145)
[2019-12-27 06:44] LABS: Band 3 % (5-11); Lymphocytes 4 % (21-51); MDiff Complete? YES; Metamyelocyte 3 % (0-0); Monocytes 5 % (0-10); Neutrophil 84 % (42-75); Platelet Morphology Comment Appears Adequate; Polychromasia SLIGHT = 2-3 cells (100X) (0-2/hpf); Promyelocytes 1 % (0-0)
[2019-12-27 07:40] LABS: Actual Bicarbonate (HCO3a) 30.5 mEq/L (22-28); Base Excess (BEa) 4.3 mEq/L (-2.0 to +3.0); CO2 Tension 53.2 mmHg (35.0-45.0); Calcium, Ionized 1.18 mmol/L (1.12-1.30); Hemoglobin (Hb) 11.8 g/dL (14.0-18.0); O2 Tension (PaO2) 72.9 mmHg (> 70.0); Potassium - ABG Lab 4.54 mmol/L (3.70-5.30); pH, Arterial 7.38 (7.35-7.45)
[2019-12-27 07:41] LABS: Puncture Site LB
[2019-12-27] MEDS: Metoclopramide 10 MG/10 ML UDCUP PO SCH ×4 (08:16→20:18)
[2019-12-27] MEDS: Enoxaparin Sodium 30 MG/0.3 ML SYRINGE SC SCH (08:17)
[2019-12-27] MEDS: Cefepime 2 GM in Sodium Chloride 0.9% 100 ML IVPB SCH ×2 (08:17→20:17)
[2019-12-27] MEDS: Bisacodyl 10 MG SUPP PR PRN (08:17)
[2019-12-27] MEDS: Finasteride 5 MG TAB PO SCH (08:18)
[2019-12-27] MEDS: Atorvastatin Calcium 20 MG TAB PO SCH (08:18)
[2019-12-27] MEDS: Loratadine 10 MG TAB PO SCH (08:18)
[2019-12-27] MEDS: Pantoprazole 40 MG VIAL IVP SCH (08:19)
[2019-12-27] MEDS: Pregabalin 50 MG CAP PO SCH ×2 (08:20→20:18)
--- NOTE | 2019-12-27 08:39 | RAD ---
CHEST 1 VIEW: HISTORY: Pneumonia. Respiratory insufficiency. COMPARISON: 12/26/2019. FINDINGS: NG tube and endotracheal tubes in position. Poor inspiration with cardiomegaly with fairly extensive bilaterally interstitial and alveolar opacities showing little change from prior study. IMPRESSION: Stable poor inspiration and bilateral interstitial and alveolar opacities with cardiomegaly. Continu e short-term followup. POS: [facility]FREDO
[2019-12-27] MEDS: fentaNYL Citrate/PF 2,000 MCG in Sodium Chloride 0.9% 60 ML IV SCH (08:56)
[2019-12-27] MEDS: hydrALAZINE 20 MG/ML VIAL SLOW IVP PRN (09:20)
[2019-12-27] MEDS: niCARdipine 25 MG in Sodium Chloride 0.9% 250 ML 240 ML IVPB SCH ×2 (10:42→18:28)
--- NOTE | 2019-12-27 11:20 | PRG ---
DATE OF SERVICE: 12/27/2019 This is 35 minutes of critical care time. SUBJECTIVE: The patient remains intubated, on mechanical ventilation. He has had no acute changes overnight. Cardene had to be restarted this morning because of persistent hypertension. OBJECTIVE: VITAL SIGNS: His temperature is 99.0, pulse is 71, blood pressure is 177/80. A 24-hour intake 3307, output 3635. Weight 184 pounds. GENERAL: He is sedated on propofol. HEENT: Unremarkable. NECK: No adenopathy or JVD. LUNGS: Crackles in both bases. CARDIAC: S1, S2. Regular. ABDOMEN: Soft. EXTREMITIES: Edematous. LABORATORY DATA: White blood cell count 8.7, hematocrit 33.2, and platelet count 221. PH of 7.38, pCO2 of 53, pO2 of 72. Sodium 145, potassium 4.4, chloride 111, CO2 of 33, BUN 44, creatinine 0.8, glucose 201. IMAGING DATA: His chest x-ray shows bilateral infiltrative changes, cardiomegaly. ASSESSMENT: 1. Acute hypoxic respiratory failure, requiring mechanical ventilation. 2. Alveolar hemorrhage associated with pneumonia or hypertension. 3. Interstitial lung disease. 4. Diastolic cardiac dysfunction. 5. Elevated plateau pressures, on ventilator. PLAN: I have decreased his tidal volume and increased his respiratory rate, so that we can limit his alveolar pressures. He will continue on the cefepime, nicardipine has been restarted. His steroid dose is about right, I do not think he is weanable. Job ID: [id number]
--- NOTE | 2019-12-27 15:43 | PDOC.HOSPP ---
- Subjective Encounter Date: 12/27/19 Encounter Time: 12:45 Subjective: on cardene gtt, tolerating TF. on vent. - Objective Vital Signs & Weight: Vital Signs (12 hours) Temp Pulse Resp BP Pulse Ox 12/27/19 15:06 50 L 120/55 L 12/27/19 15:04 50 L 20 99 12/27/19 14:00 20 12/27/19 12:00 99.2 F 20 12/27/19 11:02 65 152/67 H 12/27/19 11:01 66 20 99 12/27/19 10:00 24 H 12/27/19 09:20 67 181/77 H 12/27/19 08:00 99 F 29 H 100 12/27/19 07:25 74 165/92 H 12/27/19 07:23 70 25 H 96 12/27/19 06:00 18 12/27/19 05:00 99.2 F 12/27/19 04:01 61 12/27/19 04:00 18 Weight Admit Weight 190 lb Weight 184 lb 4.903 oz Most Recent Monitor Data Heart Rate from ECG 50 NIBP 117/50 NIBP BP-Mean 72 Respiration from ECG 20 SpO2 99 I&O: 12/26/19 12/27/19 12/28/19 06:59 06:59 06:59 Intake Total 4369.2 3307.9 250 Output Total 1970 3635 635 Balance 2399.2 -327.1 -385 Result Diagrams: 12/27/19 05:25 12/27/19 05:25 Hospitalist ROS - Medication Medications: Active Medications Generic Name Dose Route Start Last Admin Trade Name Freq PRN Reason Stop Dose Admin Albuterol/Ipratropium 3 ml 12/19/19 18:30 12/27/19 15:04 Duoneb IPPB 3 ml [id number] JOSESITO Administration Atorvastatin Calcium 20 mg 12/20/19 09:00 12/27/19 08:18 Lipitor PO 20 mg DAILY JOSESITO Administration Bisacodyl 10 mg 12/24/19 15:42 12/27/19 08:17 Dulcolax [place] 10 mg Q8H PRN Administration Constipation Cholecalciferol 1,000 units 12/20/19 09:00 12/27/19 08:17 Vitamin D3 PO 1,000 units DAILY JOSESITO Administration Diltiazem HCl 360 mg 12/20/19 09:00 12/27/19 08:17 Cardizem Cd PO 360 mg DAILY JOSESITO Administration Enoxaparin Sodium 30 mg 12/21/19 09:00 12/27/19 08:17 Lovenox SC 30 mg 0900 JOSESITO Administration Finasteride 5 mg 12/20/19 09:00 12/27/19 08:18 Proscar PO 5 mg DAILY JOSESITO Administration Hydralazine HCl 10 mg 12/19/19 17:53 12/27/19 09:20 Apresoline SLOW IVP 10 mg Q6H PRN Administration SBP >150 Cefepime HCl 2 gm/ Sodium 100 mls @ 200 mls/hr 12/19/19 21:00 12/27/19 08:17 Chloride IVPB 100 mls Q12HR JOSESITO Administration Fentanyl Citrate 2,000 mcg/ 100 mls @ 0 mls/hr 12/20/19 00:05 12/27/19 08:56 Sodium Chloride IV 01/19/20 00:05 100 mls INF JOSESITO Administration Protocol Per Protocol Nicardipine HCl 25 mg/ Sodium 250 mls @ 0 mls/hr 12/20/19 00:30 12/27/19 10: 42 Chloride IVPB 250 mls INF JOSESITO Administration Protocol Titrate Dexmedetomidine HCl 400 mcg/ 100 mls @ 0 mls/hr 12/22/19 17:30 12/22/19 17:28 Sodium Chloride IVPB 100 mls INF JOSESITO Administration Protocol Per Protocol Dextrose/Sodium Chloride 1,000 mls @ 75 mls/hr 12/26/19 18:51 12/27/19 14:00 D5 0.9% Ns IV 1,000 mls .[id number] JOSESITO Administration Loratadine 10 mg 12/20/19 09:00 12/27/19 08:18 Claritin PO 10 mg DAILY JOSESITO Administration Lorazepam 2 mg 12/20/19 00:05 12/23/19 08:22 Ativan SLOW IVP 01/19/20 00:05 2 mg Q1H PRN Administration Breakthrough agitation Methylprednisolone Sodium Succinate 20 mg 12/26/19 18:00 12/27/19 12:27 Solu-Medrol IVP 20 mg Q6HR JOSESITO Administration Metoclopramide HCl 10 mg 12/24/19 17:00 12/27/19 12:26 Reglan PO 10 mg ACHS JOSESITO Administration Morphine Sulfate 2 mg 12/20/19 00:05 12/26/19 08:52 Morphine SLOW IVP 01/19/20 00:05 2 mg Q1H PRN Administration BREAKTHROUGH PAIN/Agitation Pantoprazole Sodium 40 mg 12/21/19 09:00 12/27/19 08:19 Protonix IVP 40 mg DAILY JOSESITO Administration Pregabalin 400 mg 12/19/19 21:00 12/27/19 08:20 Lyrica PO 400 mg BID JOSESITO Administration Propofol 1,000 mg 12/20/19 00:05 12/27/19 09:24 Diprivan IV 01/19/20 00:05 1,000 mg INF PRN Administration TO ACHIEVE GOAL RASS Protocol Rocuronium [place] 100 mg 12/20/19 00:17 12/23/19 08:22 Zemuron IVP 100 mg Q1H PRN Administration Agitation Sodium Chloride 10 ml 12/20/19 21:00 12/27/19 08:21 Flush - Normal Saline IVF 10 ml Q12HR JOSESITO Administration Venlafaxine HCl 75 mg 12/20/19 09:00 12/27/19 08:18 Effexor PO 75 mg DAILY JOSESITO Administration - Exam General Appearance: ill appearing General - other findings: vent ENT: normocephalic atraumatic Neck: supple, symmetric Heart: RRR Respiratory: CTAB, normal chest expansion Gastrointestinal: normal bowel sounds Neurological: cranial nerve grossly intact Hosp A/P - Plan (1) Acute respiratory failure with hypoxia Code(s): J96.01 - ACUTE RESPIRATORY FAILURE WITH HYPOXIA Status: Acute Plan: Continue SIMV FIO2 40%, RR 18, continue slow wean as clinically tolerated (2) Bacterial pneumonia Code(s): J15.9 - UNSPECIFIED BACTERIAL PNEUMONIA Status: Acute Plan: Persistent patchy infiltrates, continue Cefepime/Solumedrol (3) Hypokalemia Code(s): E87.6 - HYPOKALEMIA Status: Acute Plan: Improved, serial K+ monitoring (4) HTN (hypertension) Code(s): I10 - ESSENTIAL (PRIMARY) HYPERTENSION Status: Chronic Qualifiers: Hypertension type: essential hypertension Qualified Code(s): I10 - Essential (primary) hypertension Plan: Stable, continue Diltiazem (5) Severe sepsis Code(s): A41.9 - SEPSIS, UNSPECIFIED ORGANISM; R65.20 - SEVERE SEPSIS WITHOUT SEPTIC SHOCK Status: Acute - Plan continue antibiotics, social sciences research scientist, respiratory therapy, DVT proph w/SCDs Continue critical support SIMV for resp failure, FIO2 40% PCXR daily Continue Cefepime Nutritional support with TF's D5W @ 75ml/h AM lab: CBC, Vanc Trough
[2019-12-28] MEDS: methylPREDNISolone Sod Succ 40 MG VIAL IVP SCH ×5 (00:22→23:42)
[2019-12-28] MEDS: Dextrose 5 % And 0.9 % NaCl 1,000 ML IV SCH (04:10)
[2019-12-28] MEDS: Propofol 1,000 MG/100 ML VIAL IV PRN ×3 (05:08→17:48)
[2019-12-28 05:10] LABS: Band 1 % (5-11); Hemoglobin 10.1 g/dL (14.0-18.0); Lymphocytes 8 % (21-51); MDiff Complete? YES; Mean Corpuscular HGB CONC 33.8 g/dL (32.0-36.0); Mean Corpuscular Hemoglobin 32.9 pg (27.0-31.0); Mean Corpuscular Volume 97.3 fL (78.0-98.0); Mean Platelet Volume 8.6 fL (7.4-10.4); Monocytes 6 % (0-10); Neutrophil 85 % (42-75); Platelet Count 186 thou/uL (130-400); Platelet Morphology Comment Appears Adequate; RBC Morphology Normal; Red Blood Cell (RBC) Count 3.08 mill/uL (4.70-6.10)
[2019-12-28] MEDS: fentaNYL Citrate/PF 2,000 MCG in Sodium Chloride 0.9% 60 ML IV SCH (05:22)
[2019-12-28 06:01] LABS: Anion Gap 9 mmol/L (10-20); BUN (Urea Nitrogen) 45 mg/dL (8.4-25.7); Calc. Creatinine Clearance 84 mL/min (70-130); Calcium 7.8 mg/dL (7.8-10.44); Carbon Dioxide 30 mmol/L (23-31); Chloride 112 mmol/L (98-107); Estimated GFR-MDRD 82; Glucose 202 mg/dL (83-110); Potassium 4.8 mmol/L (3.5-5.1); Sodium 146 mmol/L (136-145)
[2019-12-28] MEDS: Metoclopramide 10 MG/10 ML UDCUP PO SCH ×4 (07:45→20:06)
[2019-12-28 07:56] LABS: Actual Bicarbonate (HCO3a) 30.7 mEq/L (22-28); Base Excess (BEa) 4.7 mEq/L (-2.0 to +3.0); CO2 Tension 52.7 mmHg (35.0-45.0); Calcium, Ionized 1.17 mmol/L (1.12-1.30); Carboxyhemoglobin (COHb) 1.2 gm% (0.0-3.0); Hemoglobin (Hb) 10.6 g/dL (14.0-18.0); O2 Tension (PaO2) 78.4 mmHg (> 70.0); Potassium - ABG Lab 4.61 mmol/L (3.70-5.30); pH, Arterial 7.38 (7.35-7.45)
[2019-12-28 08:08] LABS: Puncture Site LR
[2019-12-28 08:09] LABS: ALV-art Gradient 140.925 (0-20)
[2019-12-28] MEDS: Pantoprazole 40 MG VIAL IVP SCH (08:34)
[2019-12-28] MEDS: Enoxaparin Sodium 30 MG/0.3 ML SYRINGE SC SCH (08:34)
[2019-12-28] MEDS: Loratadine 10 MG TAB PO SCH (08:35)
[2019-12-28] MEDS: Pregabalin 50 MG CAP PO SCH ×2 (08:36→21:19)
[2019-12-28] MEDS: Finasteride 5 MG TAB PO SCH (08:36)
[2019-12-28] MEDS: Atorvastatin Calcium 20 MG TAB PO SCH (08:36)
[2019-12-28] MEDS: Cefepime 2 GM in Sodium Chloride 0.9% 100 ML IVPB SCH ×2 (08:37→20:05)
[2019-12-28] MEDS: niCARdipine 25 MG in Sodium Chloride 0.9% 250 ML 240 ML IVPB SCH ×3 (09:53→20:06)
--- NOTE | 2019-12-28 11:15 | PRG ---
DATE OF SERVICE: 12/28/2019 35 minutes critical care time. SUBJECTIVE: The patient remains intubated on mechanical ventilation. He is deeply sedated. OBJECTIVE: VITAL SIGNS: Temperature 99.2, pulse 61, blood pressure 151/67, O2 saturation 97%. He is currently on propofol, fentanyl. He is also on nicardipine 2.5 mg/hour. His 24 hour intake was 4422, output 1700. HEENT: Unremarkable. NECK: No adenopathy or JVD. LUNGS: Diminished breath sounds throughout. CARDIAC: S1 and S2 regular. ABDOMEN: Soft. EXTREMITIES: Edematous. LABORATORY DATA: Chest x-ray was not done today. LABS: White blood cell count 10, hematocrit 30, and platelet count 186. PH of 7.38, pCO2 of 52, pO2 of 78 on SIMV rate 20, tidal volume 460, PEEP 7, pressure support 10, FiO2 40%. Sodium 146, potassium 4.8, chloride 112, CO2 of 45, BUN 0.9, glucose 202. ASSESSMENT: 1. Continued respiratory failure, requiring mechanical ventilation. 2. Alveolar hemorrhage associated with either pneumonia or hypertension. 3. Interstitial lung disease. 4. Diastolic cardiac dysfunction. PLAN: The patient is not currently weanable beyond his current ventilator settings. We will continue the antibiotics. We will try to limit his fluid intake as much as possible. He will have an x-ray repeated tomorrow. Job ID: [id number]
--- NOTE | 2019-12-28 18:26 | PDOC.HOSPP ---
- Subjective Encounter Date: 12/28/19 Encounter Time: 12:34 Subjective: continue to be on the vent; Na 146, good urine output. - Objective Vital Signs & Weight: Vital Signs (12 hours) Temp Pulse Resp BP Pulse Ox 12/28/19 16:00 100.1 F H 12/28/19 14:55 51 L 127/62 12/28/19 14:54 65 20 96 12/28/19 14:00 20 12/28/19 12:00 99.1 F 12/28/19 10:42 61 152/68 H 12/28/19 10:40 61 20 97 12/28/19 10:00 20 12/28/19 08:00 20 97 12/28/19 07:27 58 L 149/65 H 12/28/19 07:20 58 L 20 96 12/28/19 07:00 99.2 F Weight Admit Weight 190 lb Weight 198 lb 3.129 oz Most Recent Monitor Data Heart Rate from ECG 52 NIBP 141/62 NIBP BP-Mean 88 Respiration from ECG 20 SpO2 98 I&O: 12/27/19 12/28/19 12/29/19 06:59 06:59 06:59 Intake Total 3307.9 4422.1 1815.5 Output Total 3635 1700 670 Balance -327.1 2722.1 1145.5 Result Diagrams: 12/28/19 04:15 12/28/19 05:20 Hospitalist ROS - Medication Medications: Active Medications Generic Name Dose Route Start Last Admin Trade Name Freq PRN Reason Stop Dose Admin Albuterol/Ipratropium 3 ml 12/19/19 18:30 12/28/19 14:54 Duoneb IPPB 3 ml [id number] JOSESITO Administration Atorvastatin Calcium 20 mg 12/20/19 09:00 12/28/19 08:36 Lipitor PO 20 mg DAILY JOSESITO Administration Bisacodyl 10 mg 12/24/19 15:42 12/27/19 08:17 Dulcolax [place] 10 mg Q8H PRN Administration Constipation Cholecalciferol 1,000 units 12/20/19 09:00 12/28/19 08:36 Vitamin D3 PO 1,000 units DAILY JOSESITO Administration Diltiazem HCl 360 mg 12/20/19 09:00 12/28/19 08:35 Cardizem Cd PO 360 mg DAILY JOSESITO Administration Enoxaparin Sodium 30 mg 12/21/19 09:00 12/28/19 08:34 Lovenox SC 30 mg 0900 JOSESITO Administration Finasteride 5 mg 12/20/19 09:00 12/28/19 08:36 Proscar PO 5 mg DAILY JOSESITO Administration Hydralazine HCl 10 mg 12/19/19 17:53 12/27/19 09:20 Apresoline SLOW IVP 10 mg Q6H PRN Administration SBP >150 Cefepime HCl 2 gm/ Sodium 100 mls @ 200 mls/hr 12/19/19 21:00 12/28/19 08:37 Chloride IVPB 100 mls Q12HR JOSESITO Administration Fentanyl Citrate 2,000 mcg/ 100 mls @ 0 mls/hr 12/20/19 00:05 12/28/19 05:22 Sodium Chloride IV 01/19/20 00:05 100 mls INF JOSESITO Administration Protocol Per Protocol Nicardipine HCl 25 mg/ Sodium 250 mls @ 0 mls/hr 12/20/19 00:30 12/28/19 17: 50 Chloride IVPB 250 mls INF JOSESITO Administration Protocol Titrate Loratadine 10 mg 12/20/19 09:00 12/28/19 08:35 Claritin PO 10 mg DAILY JOSESITO Administration Lorazepam 2 mg 12/20/19 00:05 12/23/19 08:22 Ativan SLOW IVP 01/19/20 00:05 2 mg Q1H PRN Administration Breakthrough agitation Methylprednisolone Sodium Succinate 20 mg 12/26/19 18:00 12/28/19 17:48 Solu-Medrol IVP 20 mg Q6HR JOSESITO Administration Metoclopramide HCl 10 mg 12/24/19 17:00 12/28/19 17:15 Reglan PO 10 mg ACHS JOSESITO Administration Morphine Sulfate 2 mg 12/20/19 00:05 12/26/19 08:52 Morphine SLOW IVP 01/19/20 00:05 2 mg Q1H PRN Administration BREAKTHROUGH PAIN/Agitation Pantoprazole Sodium 40 mg 12/21/19 09:00 12/28/19 08:34 Protonix IVP 40 mg DAILY JOSESITO Administration Pregabalin 400 mg 12/19/19 21:00 12/28/19 08:36 Lyrica PO 400 mg BID JOSESITO Administration Propofol 1,000 mg 12/20/19 00:05 12/28/19 17:48 Diprivan IV 01/19/20 00:05 1,000 mg INF PRN Administration TO ACHIEVE GOAL RASS Protocol Rocuronium [place] 100 mg 12/20/19 00:17 12/23/19 08:22 Zemuron IVP 100 mg Q1H PRN Administration Agitation Sodium Chloride 10 ml 12/20/19 21:00 12/28/19 08:40 Flush - Normal Saline IVF 10 ml Q12HR JOSESITO Administration Venlafaxine HCl 75 mg 12/20/19 09:00 12/28/19 08:36 Effexor PO 75 mg DAILY JOSESITO Administration - Exam General - other findings: on vent Eye: PERRL ENT: normocephalic atraumatic Neck: symmetric Heart: RRR Respiratory: CTAB, normal chest expansion Gastrointestinal: normal bowel sounds, no palpable masses Extremities - other findings: dept edema Hosp A/P - Plan (1) Acute respiratory failure with hypoxia Code(s): J96.01 - ACUTE RESPIRATORY FAILURE WITH HYPOXIA Status: Acute Plan: Continue SIMV FIO2 40%, RR 18, continue slow wean as clinically tolerated (2) Bacterial pneumonia Code(s): J15.9 - UNSPECIFIED BACTERIAL PNEUMONIA Status: Acute Plan: Persistent patchy infiltrates, continue Cefepime/Solumedrol (3) Hypokalemia Code(s): E87.6 - HYPOKALEMIA Status: Acute Plan: Improved, serial K+ monitoring (4) HTN (hypertension) Code(s): I10 - ESSENTIAL (PRIMARY) HYPERTENSION Status: Chronic Qualifiers: Hypertension type: essential hypertension Qualified Code(s): I10 - Essential (primary) hypertension Plan: Stable, continue Diltiazem (5) Severe sepsis Code(s): A41.9 - SEPSIS, UNSPECIFIED ORGANISM; R65.20 - SEVERE SEPSIS WITHOUT SEPTIC SHOCK Status: Acute - Plan continue antibiotics, social work faculty member, respiratory therapy, DVT proph w/SCDs . SIMV for resp failure, FIO2 40% PCXR daily Continue Cefepime Nutritional support with TF's D5W @ 75ml/h continue w.. above mgmt.
[2019-12-29] MEDS: fentaNYL Citrate/PF 2,000 MCG in Sodium Chloride 0.9% 60 ML IV SCH ×2 (01:26→21:37)
[2019-12-29] MEDS: hydrALAZINE 20 MG/ML VIAL SLOW IVP PRN (03:39)
[2019-12-29 05:01] LABS: Band 4 % (5-11); Hemoglobin 10.9 g/dL (14.0-18.0); Lymphocytes 3 % (21-51); MDiff Complete? YES; Mean Corpuscular HGB CONC 32.7 g/dL (32.0-36.0); Mean Corpuscular Volume 97.9 fL (78.0-98.0); Mean Platelet Volume 8.1 fL (7.4-10.4); Monocytes 2 % (0-10); Neutrophil 91 % (42-75); Platelet Count 208 thou/uL (130-400); Platelet Morphology Comment Appears Adequate; RBC Distribution Width 13.8 % (11.5-14.5); White Blood Cell (WBC) Count 11.6 thou/uL (4.8-10.8)
[2019-12-29 05:03] LABS: Anion Gap 10 mmol/L (10-20); BUN (Urea Nitrogen) 52 mg/dL (8.4-25.7); Calc. Creatinine Clearance 93 mL/min (70-130); Carbon Dioxide 30 mmol/L (23-31); Chloride 111 mmol/L (98-107); Estimated GFR-MDRD 84; Glucose 187 mg/dL (83-110); Potassium 4.7 mmol/L (3.5-5.1); Sodium 146 mmol/L (136-145)
[2019-12-29] MEDS: methylPREDNISolone Sod Succ 40 MG VIAL IVP SCH ×3 (05:17→18:14)
[2019-12-29] MEDS: Propofol 1,000 MG/100 ML VIAL IV PRN ×4 (06:07→20:36)
[2019-12-29 07:00] LABS: Actual Bicarbonate (HCO3a) 30.2 mEq/L (22-28); Base Excess (BEa) 4.3 mEq/L (-2.0 to +3.0); CO2 Tension 51.8 mmHg (35.0-45.0); Calcium, Ionized 1.19 mmol/L (1.12-1.30); Carboxyhemoglobin (COHb) 1.2 gm% (0.0-3.0); Hemoglobin (Hb) 10.9 g/dL (14.0-18.0); Potassium - ABG Lab 4.53 mmol/L (3.70-5.30); pH, Arterial 7.38 (7.35-7.45)
[2019-12-29 07:24] LABS: Puncture Site RR
[2019-12-29] MEDS: Metoclopramide 10 MG/10 ML UDCUP PO SCH ×4 (08:01→21:45)
[2019-12-29] MEDS: Cefepime 2 GM in Sodium Chloride 0.9% 100 ML IVPB SCH ×2 (09:01→22:17)
[2019-12-29] MEDS: Finasteride 5 MG TAB PO SCH (09:03)
[2019-12-29] MEDS: Atorvastatin Calcium 20 MG TAB PO SCH (09:03)
[2019-12-29] MEDS: Pantoprazole 40 MG GRANULES PACKET PER TUBE SCH (09:03)
[2019-12-29] MEDS: Enoxaparin Sodium 30 MG/0.3 ML SYRINGE SC SCH (09:03)
[2019-12-29] MEDS: Loratadine 10 MG TAB PO SCH (09:04)
--- NOTE | 2019-12-29 09:59 | RAD ---
CHEST 1 VIEW PORTABLE: Date: 12/29/2019 HISTORY: Follow-up pneumonia. COMPARISON: 12/27/2019. FINDINGS: Endotracheal tube in place and stable. Poor inspiration with alveolar nodular parenchymal changes thr oughout both lungs with some right infrahilar nodularity. No significant new confluent pneumonia. Con tinue short-term follow-up. IMPRESSION: Persistent abnormal alveolar and interstitial opacities. Life support tubes remain in place and stabl e. POS: [facility]
[2019-12-29] MEDS: Pregabalin 50 MG CAP PO SCH ×2 (10:16→21:45)
--- NOTE | 2019-12-29 12:47 | PDOC.CPN ---
- Subjective Date: 12/29/19 Time: 12:45 Interval history: Remains sedated intubated. - Review of Systems ROS unobtainable: due to endotracheal tube - Objective Allergies/Adverse Reactions: Allergies Allergy/AdvReac Type Severity Reaction Status Date / Time moxifloxacin HCl Allergy Hives Verified 06/13/16 12:35 [From Avelox] Visit Medications: Current Medications Acetaminophen (Tylenol) 650 mg PO Q4H PRN PRN Reason: Headache/Fever/Mild Pain (1-3) Albuterol/Ipratropium (Duoneb) 3 ml IPPB [id number] [facility] Last Admin: 12/29/19 10:46 Dose: 3 ml Atorvastatin Calcium (Lipitor) 20 mg PO DAILY [facility] Last Admin: 12/29/19 09:03 Dose: 20 mg Bisacodyl (Dulcolax) 10 mg SC Q8H PRN PRN Reason: Constipation Last Admin: 12/27/19 08:17 Dose: 10 mg Cholecalciferol (Vitamin D3) 1,000 units PO DAILY [facility] Last Admin: 12/29/19 09:02 Dose: 1,000 units Diltiazem HCl (Cardizem Cd) 360 mg PO DAILY [facility] Last Admin: 12/29/19 09:04 Dose: 360 mg Enoxaparin Sodium (Lovenox) 30 mg SC 0900 [facility] Last Admin: 12/29/19 09:03 Dose: 30 mg Finasteride (Proscar) 5 mg PO DAILY [facility] Last Admin: 12/29/19 09:03 Dose: 5 mg Hydralazine HCl (Apresoline) 10 mg SLOW IVP Q6H PRN PRN Reason: SBP >150 Last Admin: 12/29/19 03:39 Dose: 10 mg Cefepime HCl 2 gm/ Sodium (Chloride) 100 mls @ 200 mls/hr IVPB Q12HR [facility] Last Admin: 12/29/19 09:01 Dose: 100 mls Fentanyl Citrate 2,000 mcg/ (Sodium Chloride) 100 mls @ 0 mls/hr IV INF [facility]; Protocol Stop: 01/19/20 00:05 Last Admin: 12/29/19 01:26 Dose: 100 mls Fentanyl Citrate (Fentanyl Bolus) 250 mls @ 0 mls/hr IVPB PRN PRN PRN Reason: Breakthrough pain/agitation Stop: 01/19/20 00:05 Nicardipine HCl 25 mg/ Sodium (Chloride) 250 mls @ 0 mls/hr IVPB INF [facility]; Protocol Last Admin: 12/28/19 20:06 Dose: 250 mls Dextrose/Water (D5w) 1,000 mls @ 0 mls/hr IV .Q0M [facility] Loratadine (Claritin) 10 mg PO DAILY [facility] Last Admin: 12/29/19 09:04 Dose: 10 mg Lorazepam (Ativan) 2 mg SLOW IVP Q1H PRN PRN Reason: Breakthrough agitation Stop: 01/19/20 00:05 Last Admin: 12/23/19 08:22 Dose: 2 mg Methylprednisolone Sodium Succinate (Solu-Medrol) 20 mg IVP Q6HR [facility] Last Admin: 12/29/19 12:01 Dose: 20 mg Metoclopramide HCl (Reglan) 10 mg PO ACHS [facility] Last Admin: 12/29/19 12:01 Dose: 10 mg Morphine Sulfate (Morphine) 2 mg SLOW IVP Q1H PRN PRN Reason: BREAKTHROUGH PAIN/Agitation Stop: 01/19/20 00:05 Last Admin: 12/26/19 08:52 Dose: 2 mg Discontinue Previous Narcotic Pain Medications And Benzodiazepines 1 each FS .ONE [facility] Stop: 01/19/20 00:05 Ondansetron HCl (Zofran Odt) 4 mg PO Q6H PRN PRN Reason: Nausea/Vomiting Pantoprazole Sodium (Protonix) 40 mg PER TUBE DAILY [facility] Last Admin: 12/29/19 09:03 Dose: 40 mg Pregabalin (Lyrica) 400 mg PO BID [facility] Last Admin: 12/29/19 10:16 Dose: 400 mg Propofol (Diprivan) 1,000 mg IV INF PRN; Protocol PRN Reason: TO ACHIEVE GOAL RASS Stop: 01/19/20 00:05 Last Admin: 12/29/19 06:07 Dose: 1,000 mg Propofol (Diprivan Bolus) 20 mg IV Q5MIN PRN PRN Reason: BREAKTHROUGH AGITATION Stop: 01/19/20 00:05 Rocuronium [place] (Zemuron) 100 mg IVP Q1H PRN PRN Reason: Agitation Last Admin: 12/23/19 08:22 Dose: 100 mg Senna/Docusate Sodium (Senokot S) 2 tab PO BID PRN PRN Reason: Constipation Sodium Chloride (Normal Saline Pf) 10 ml FS PRN PRN PRN Reason: RECONSTITUTION Sodium Chloride (Flush - Normal Saline) 10 ml IVF Q12HR [facility] Last Admin: 12/29/19 09:10 Dose: 10 ml Sodium Chloride (Flush - Normal Saline) 10 ml IVF PRN PRN PRN Reason: Saline Flush Venlafaxine HCl (Effexor) 75 mg PO DAILY [facility] Last Admin: 12/29/19 09:03 Dose: 75 mg Vital Signs & Weight: Vital Signs Temp Pulse Resp BP Pulse Ox 12/29/19 10:46 86 162/92 H 12/29/19 10:00 99.4 F 23 H 12/29/19 08:00 99 F 20 98 12/29/19 07:54 93 169/84 H 12/29/19 06:00 20 12/29/19 04:00 99.0 F 22 H 12/29/19 03:39 68 162/80 H 12/29/19 02:18 74 12/29/19 02:17 76 20 98 12/29/19 02:00 20 Admit Weight 190 lb Weight 199 lb 11.821 oz - Physical Exam General: other (S/I) HEENT: normocephaly Neck: supple neck Cardiac: regular rate and rhythm Lungs: scattered rhonchi Neuro: no lateralizing findings Abdomen: active bowel sounds Extremities: no edema Skin: clear Musculoskeletal: normal range of motion - Labs Result Diagrams: 12/29/19 03:45 12/29/19 03:45 Troponin/CKMB CK-MB (CK-2) 0.8 ng/mL (0-6.6) 12/19/19 10:15 Troponin I 0.022 ng/mL (< 0.028) 12/19/19 17:24 - Telemetry Sinus rhythms and dysrhythmias: sinus rhythm - Assessment/Plan Assessment/Plan: 1. Acute hypoxic respiratory insufficiency 2. Pulmonary hemorrhage 3. Pneumonia 4. HTN, improved. 5. Hypokalemia. 6. Demand ischemia. 7. Pulmonary fibrosis. PLAN: - Hemorrhage may be related to infection or HTN. BP better controlled. Abx for pneumonia. - Normal LV function. - CV stable. - Continue supportive care.
[2019-12-29 13:35] VITALS: BMI 28.2
--- NOTE | 2019-12-29 13:59 | PDOC.HOSPP ---
- Subjective Encounter Date: 12/29/19 Encounter Time: 12:10 Subjective: pt still on vent; d/w RN; BP high, on propofal. - Objective Vital Signs & Weight: Vital Signs (12 hours) Temp Pulse Resp BP Pulse Ox 12/29/19 13:28 82 12/29/19 13:00 99 F 12/29/19 10:46 86 162/92 H 12/29/19 10:00 99.4 F 23 H 12/29/19 08:00 99 F 20 98 12/29/19 07:54 93 169/84 H 12/29/19 06:00 20 12/29/19 04:00 99.0 F 22 H 12/29/19 03:39 68 162/80 H 12/29/19 02:18 74 12/29/19 02:17 76 20 98 12/29/19 02:00 20 Weight Admit Weight 190 lb Weight 199 lb 11.821 oz Most Recent Monitor Data Heart Rate from ECG 83 NIBP 154/76 NIBP BP-Mean 102 Respiration from ECG 20 SpO2 97 I&O: 12/28/19 12/29/19 12/30/19 06:59 06:59 06:59 Intake Total 4422.1 3013.5 240 Output Total 1700 1680 550 Balance 2722.1 1333.5 -310 Result Diagrams: 12/29/19 03:45 12/29/19 03:45 Hospitalist ROS - Medication Medications: Active Medications Generic Name Dose Route Start Last Admin Trade Name Freq PRN Reason Stop Dose Admin Albuterol/Ipratropium 3 ml 12/19/19 18:30 12/29/19 10:46 Duoneb IPPB 3 ml [id number] [facility] Administration Atorvastatin Calcium 20 mg 12/20/19 09:00 12/29/19 09:03 Lipitor PO 20 mg DAILY [facility] Administration Bisacodyl 10 mg 12/24/19 15:42 12/27/19 08:17 Dulcolax [place] 10 mg Q8H PRN Administration Constipation Cholecalciferol 1,000 units 12/20/19 09:00 12/29/19 09:02 Vitamin D3 PO 1,000 units DAILY [facility] Administration Diltiazem HCl 360 mg 12/20/19 09:00 12/29/19 09:04 Cardizem Cd PO 360 mg DAILY [facility] Administration Enoxaparin Sodium 30 mg 12/21/19 09:00 12/29/19 09:03 Lovenox SC 30 mg 0900 [facility] Administration Finasteride 5 mg 12/20/19 09:00 12/29/19 09:03 Proscar PO 5 mg DAILY [facility] Administration Hydralazine HCl 10 mg 12/19/19 17:53 12/29/19 03:39 Apresoline SLOW IVP 10 mg Q6H PRN Administration SBP >150 Cefepime HCl 2 gm/ Sodium 100 mls @ 200 mls/hr 12/19/19 21:00 12/29/19 09:01 Chloride IVPB 100 mls Q12HR [facility] Administration Fentanyl Citrate 2,000 mcg/ 100 mls @ 0 mls/hr 12/20/19 00:05 12/29/19 01:26 Sodium Chloride IV 01/19/20 00:05 100 mls INF [facility] Administration Protocol Per Protocol Nicardipine HCl 25 mg/ Sodium 250 mls @ 0 mls/hr 12/20/19 00:30 12/28/19 20: 06 Chloride IVPB 250 mls INF [facility] Administration Protocol Titrate Loratadine 10 mg 12/20/19 09:00 12/29/19 09:04 Claritin PO 10 mg DAILY [facility] Administration Lorazepam 2 mg 12/20/19 00:05 12/23/19 08:22 Ativan SLOW IVP 01/19/20 00:05 2 mg Q1H PRN Administration Breakthrough agitation Methylprednisolone Sodium Succinate 20 mg 12/26/19 18:00 12/29/19 12:01 Solu-Medrol IVP 20 mg Q6HR [facility] Administration Metoclopramide HCl 10 mg 12/24/19 17:00 12/29/19 12:01 Reglan PO 10 mg ACHS [facility] Administration Morphine Sulfate 2 mg 12/20/19 00:05 12/26/19 08:52 Morphine SLOW IVP 01/19/20 00:05 2 mg Q1H PRN Administration BREAKTHROUGH PAIN/Agitation Pantoprazole Sodium 40 mg 12/29/19 09:00 12/29/19 09:03 Protonix PER TUBE 40 mg DAILY [facility] Administration Pregabalin 400 mg 12/19/19 21:00 12/29/19 10:16 Lyrica PO 400 mg BID [facility] Administration Propofol 1,000 mg 12/20/19 00:05 12/29/19 13:55 Diprivan IV 01/19/20 00:05 1,000 mg INF PRN Administration TO ACHIEVE GOAL RASS Protocol Rocuronium [place] 100 mg 12/20/19 00:17 12/23/19 08:22 Zemuron IVP 100 mg Q1H PRN Administration Agitation Sodium Chloride 10 ml 12/20/19 21:00 12/29/19 09:10 Flush - Normal Saline IVF 10 ml Q12HR [facility] Administration Venlafaxine HCl 75 mg 12/20/19 09:00 12/29/19 09:03 Effexor PO 75 mg DAILY [facility] Administration - Exam General Appearance: ill appearing General - other findings: vent ENT: normocephalic atraumatic Heart: RRR Respiratory: normal chest expansion, no tachypnea, rhonchi Gastrointestinal: soft, normal bowel sounds Neurological: no focal deficits Hosp A/P - Plan (1) Acute respiratory failure with hypoxia Code(s): J96.01 - ACUTE RESPIRATORY FAILURE WITH HYPOXIA Status: Acute Plan: Continue SIMV FIO2 40%, RR 18, continue slow wean as clinically tolerated (2) Bacterial pneumonia Code(s): J15.9 - UNSPECIFIED BACTERIAL PNEUMONIA Status: Acute Plan: Persistent patchy infiltrates, continue Cefepime/Solumedrol --bl cx of 14th - no sig growth other than micrococcus species - skin contamination. (5) Severe sepsis--resolved Code(s): A41.9 - SEPSIS, UNSPECIFIED ORGANISM; R65.20 - SEVERE SEPSIS WITHOUT SEPTIC SHOCK Status: Acute (3) Hypokalemia Code(s): E87.6 - HYPOKALEMIA Status: Acute Plan: Improved, serial K+ monitoring (4) HTN (hypertension) Code(s): I10 - ESSENTIAL (PRIMARY) HYPERTENSION Status: Chronic Qualifiers: Hypertension type: essential hypertension Qualified Code(s): I10 - Essential (primary) hypertension Accelerated HTN - on sedation - and on cardizem 360mg
--- NOTE | 2019-12-29 19:53 | PRG ---
DATE OF SERVICE: 12/29/2019 SUBJECTIVE: David James remains sedated. OBJECTIVE: VITAL SIGNS: Heart rate is in 80s, respiratory rate is in the 20s, blood pressure 120/77, oximetry is 99. Intake and output are positive 1333, was positive 2722 yesterday. LUNGS: Clear. HEART: Regular rhythm. ABDOMEN: Soft. EXTREMITIES: Without edema. LABORATORY DATA: White count 11.6, hemoglobin 10.9, platelets 208,000. Sodium 146, potassium 4.7, chloride 111, bicarb 30, BUN 52, creatinine 0.88. PH 7.38, CO2 51, PO2 87. IMPRESSION AND PLAN: Respiratory failure associated with alveolar hemorrhage with possible coexistent pneumonia. He is quite functional 3 days prior to the onset of his illness. It is highly likely he will end up with a tracheostomy as explained to the today. We will continue with supportive care. Job ID: [id number]
[2019-12-30] MEDS: methylPREDNISolone Sod Succ 40 MG VIAL IVP SCH ×5 (00:26→23:42)
[2019-12-30] MEDS: Acetaminophen 325 MG TAB PO PRN ×4 (00:28→20:04)
[2019-12-30] MEDS: Propofol 1,000 MG/100 ML VIAL IV PRN ×4 (03:00→23:42)
[2019-12-30 04:51] LABS: Band 6 % (5-11); Hemoglobin 10.5 g/dL (14.0-18.0); Hypochromia SLIGHT = 6-15 cells (100X) (0-5/hpf); Lymphocytes 1 % (21-51); MDiff Complete? YES; Mean Corpuscular HGB CONC 32.2 g/dL (32.0-36.0); Mean Corpuscular Hemoglobin 31.3 pg (27.0-31.0); Mean Corpuscular Volume 97.1 fL (78.0-98.0); Mean Platelet Volume 8.1 fL (7.4-10.4); Monocytes 6 % (0-10); Neutrophil 87 % (42-75); Platelet Count 193 thou/uL (130-400); Platelet Morphology Comment Appears Adequate; RBC Distribution Width 13.8 % (11.5-14.5); Red Blood Cell (RBC) Count 3.37 mill/uL (4.70-6.10)
[2019-12-30 04:55] LABS: Anion Gap 10 mmol/L (10-20); BUN (Urea Nitrogen) 50 mg/dL (8.4-25.7); Calc. Creatinine Clearance 95 mL/min (70-130); Calcium 7.9 mg/dL (7.8-10.44); Carbon Dioxide 32 mmol/L (23-31); Chloride 109 mmol/L (98-107); Estimated GFR-MDRD 87; Glucose 194 mg/dL (83-110); Potassium 4.7 mmol/L (3.5-5.1); Sodium 146 mmol/L (136-145)
--- NOTE | 2019-12-30 05:19 | PDOC.EVN ---
Event Note - Event Note Event Note: RN called - Pt has fever. Cultures/CXR/UA added
[2019-12-30] MEDS ORDERED: Ventilator Sedation Protocol 1 EACH FS ONE (06:04)
[2019-12-30 06:18] LABS: Band 3 % (5-11); Hemoglobin 10.9 g/dL (14.0-18.0); Hypochromia SLIGHT = 6-15 cells (100X) (0-5/hpf); Lymphocytes 2 % (21-51); MDiff Complete? YES; Mean Corpuscular HGB CONC 31.4 g/dL (32.0-36.0); Mean Corpuscular Hemoglobin 30.8 pg (27.0-31.0); Mean Platelet Volume 8.1 fL (7.4-10.4); Monocytes 2 % (0-10); Neutrophil 93 % (42-75); Platelet Count 200 thou/uL (130-400); Platelet Morphology Comment Appears Adequate; RBC Distribution Width 14.1 % (11.5-14.5); Red Blood Cell (RBC) Count 3.56 mill/uL (4.70-6.10); White Blood Cell (WBC) Count 26.2 thou/uL (4.8-10.8)
[2019-12-30 06:26] LABS: Bacteria/HPF None Seen HPF (None Seen); Bilirubin Negative (Negative); Blood, Urine 1+ (Negative); Clarity Clear (Clear); Glucose, Urine (Dipstick) Normal (Negative); Leukocyte Negative Leu/uL (Negative); Nitrite Negative (Negative); Protein, Urine (Dipstick) 30 mg/dL (Neg-Trace); Squamous Epithelial 0-3 HPF (0-3); Urobilinogen Normal mg/dL (Less than 2); WBC/HPF 0-3 HPF (0-3)
[2019-12-30 06:42] LABS: Urine Culture Reflex No No
[2019-12-30] MEDS ORDERED: Propofol BOLUS 1,000 MG/100 ML VIAL IV PRN (06:47)
[2019-12-30] MEDS ORDERED: Lorazepam 2 MG/ML VIAL SLOW IVP PRN (06:47)
[2019-12-30] MEDS ORDERED: Fentanyl BOLUS 250 ML IVPB PRN (06:47)
[2019-12-30] MEDS ORDERED: Morphine 2 MG/ML SYRINGE SLOW IVP PRN (06:47)
[2019-12-30] MEDS ORDERED: fentaNYL Citrate/PF 2,000 MCG in Sodium Chloride 0.9% 60 ML IV SCH (06:47)
[2019-12-30 07:39] LABS: Actual Bicarbonate (HCO3a) 30.6 mEq/L (22-28); Base Excess (BEa) 4.9 mEq/L (-2.0 to +3.0); CO2 Tension 50.4 mmHg (35.0-45.0); Calcium, Ionized 1.19 mmol/L (1.12-1.30); Carboxyhemoglobin (COHb) 1.5 gm% (0.0-3.0); Hemoglobin (Hb) 11.7 g/dL (14.0-18.0); O2 Tension (PaO2) 67.2 mmHg (> 70.0); Potassium - ABG Lab 4.68 mmol/L (3.70-5.30)
[2019-12-30 07:42] LABS: Puncture Site RR
--- NOTE | 2019-12-30 08:10 | RAD ---
CHEST 1 VIEW: HISTORY: Shortness of breath and fever. COMPARISON: 12/29/2019. FINDINGS: Life support tubes remain in place. Bilateral patchy interstitial and alveolar parenchymal changes, in particular the right upper lobe, right lower lobe, and left lower lobe, overall stable from prior study. IMPRESSION: Overall stable bilateral parenchymal and pleural changes. Continued short-term followup for clearing or stability. POS: [facility]
[2019-12-30] MEDS ORDERED: Cefepime 2 GM in Sodium Chloride 0.9% 100 ML IVPB SCH (09:00)
[2019-12-30 09:10] LABS: Anion Gap 11 mmol/L (10-20); BUN (Urea Nitrogen) 50 mg/dL (8.4-25.7); Calc. Creatinine Clearance 97 mL/min (70-130); Carbon Dioxide 31 mmol/L (23-31); Chloride 110 mmol/L (98-107); Estimated GFR-MDRD Greater than 90; Glucose 177 mg/dL (83-110); Potassium 4.8 mmol/L (3.5-5.1); Sodium 147 mmol/L (136-145)
[2019-12-30] MEDS: Enoxaparin Sodium 30 MG/0.3 ML SYRINGE SC SCH (09:48)
[2019-12-30] MEDS: Loratadine 10 MG TAB PO SCH (09:49)
[2019-12-30] MEDS: Metoclopramide 10 MG/10 ML UDCUP PO SCH ×4 (09:49→20:03)
[2019-12-30] MEDS: Pantoprazole 40 MG GRANULES PACKET PER TUBE SCH (09:49)
[2019-12-30] MEDS: Atorvastatin Calcium 20 MG TAB PO SCH (09:49)
[2019-12-30] MEDS: Pregabalin 50 MG CAP PO SCH ×2 (09:49→20:04)
[2019-12-30] MEDS: Finasteride 5 MG TAB PO SCH (09:49)
--- NOTE | 2019-12-30 14:00 | PDOC.HOSPP ---
- Subjective Encounter Date: 12/30/19 Encounter Time: 11:40 Subjective: o/n events noted; on vent, fever, sputum gm stain GPC, elevated wbcs. - Objective Vital Signs & Weight: Vital Signs (12 hours) Temp Pulse Resp BP Pulse Ox 12/30/19 12:00 100.3 F H 17 12/30/19 10:49 82 136/81 12/30/19 10:00 18 12/30/19 08:00 23 H 12/30/19 07:25 72 141/76 H 12/30/19 07:00 99.9 F H 12/30/19 06:00 31 H 12/30/19 04:00 101 F H 21 H 12/30/19 02:14 84 12/30/19 02:13 83 32 H 94 L 12/30/19 02:00 27 H Weight Admit Weight 190 lb Weight 195 lb 1.745 oz Most Recent Monitor Data Heart Rate from ECG 78 NIBP 134/76 NIBP BP-Mean 95 Respiration from ECG 15 SpO2 91 I&O: 12/29/19 12/30/19 12/31/19 06:59 06:59 06:59 Intake Total 3013.5 1659.1 350 Output Total 1680 2525 805 Balance 1333.5 -865.9 -455 Result Diagrams: 12/30/19 05:44 12/30/19 08:37 Hospitalist ROS - Medication Medications: Active Medications Generic Name Dose Route Start Last Admin Trade Name Freq PRN Reason Stop Dose Admin Acetaminophen 650 mg 12/19/19 12:29 12/30/19 12:52 Tylenol PO 650 mg Q4H PRN Administration Headache/Fever/Mild Pain (1-3) Albuterol/Ipratropium 3 ml 12/19/19 18:30 12/30/19 13:55 Duoneb IPPB 3 ml [id number] [facility] Administration Atorvastatin Calcium 20 mg 12/20/19 09:00 12/30/19 09:49 Lipitor PO 20 mg DAILY [facility] Administration Bisacodyl 10 mg 12/24/19 15:42 12/27/19 08:17 Dulcolax [place] 10 mg Q8H PRN Administration Constipation Cholecalciferol 1,000 units 12/20/19 09:00 12/30/19 09:49 Vitamin D3 PO 1,000 units DAILY [facility] Administration Diltiazem HCl 360 mg 12/20/19 09:00 12/30/19 09:49 Cardizem Cd PO 360 mg DAILY [facility] Administration Enoxaparin Sodium 30 mg 12/21/19 09:00 12/30/19 09:48 Lovenox SC 30 mg 0900 [facility] Administration Finasteride 5 mg 12/20/19 09:00 12/30/19 09:49 Proscar PO 5 mg DAILY [facility] Administration Hydralazine HCl 10 mg 12/19/19 17:53 12/29/19 03:39 Apresoline SLOW IVP 10 mg Q6H PRN Administration SBP >150 Nicardipine HCl 25 mg/ Sodium 250 mls @ 0 mls/hr 12/20/19 00:30 12/28/19 20: 06 Chloride IVPB 250 mls INF [facility] Administration Protocol Titrate Cefepime HCl 2 gm/ Sodium 100 mls @ 200 mls/hr 12/30/19 09:00 12/30/19 09:48 Chloride IVPB 100 mls Q12HR [facility] Administration Loratadine 10 mg 12/20/19 09:00 12/30/19 09:49 Claritin PO 10 mg DAILY [facility] Administration Methylprednisolone Sodium Succinate 20 mg 12/26/19 18:00 12/30/19 12:52 Solu-Medrol IVP 20 mg Q6HR [facility] Administration Metoclopramide HCl 10 mg 12/24/19 17:00 12/30/19 12:52 Reglan PO 10 mg ACHS [facility] Administration Pantoprazole Sodium 40 mg 12/29/19 09:00 12/30/19 09:49 Protonix PER TUBE 40 mg DAILY [facility] Administration Pregabalin 400 mg 12/19/19 21:00 12/30/19 09:49 Lyrica PO 400 mg BID [facility] Administration Propofol 1,000 mg 12/30/19 06:47 12/30/19 09:12 Diprivan IV 01/29/20 06:47 1,000 mg INF PRN Administration TO ACHIEVE GOAL RASS Protocol Rocuronium [place] 100 mg 12/20/19 00:17 12/23/19 08:22 Zemuron IVP 100 mg Q1H PRN Administration Agitation Sodium Chloride 10 ml 12/20/19 21:00 12/30/19 09:51 Flush - Normal Saline IVF 10 ml Q12HR [facility] Administration Venlafaxine HCl 75 mg 12/20/19 09:00 12/30/19 09:48 Effexor PO 75 mg DAILY [facility] Administration - Exam General Appearance: ill appearing General - other findings: on vent Eye: PERRL ENT: normocephalic atraumatic Neck: supple, symmetric Heart: RRR, normal peripheral pulses Respiratory: normal chest expansion, normal percussion, rales, rhonchi Gastrointestinal: soft Extremities: no cyanosis Hosp A/P - Plan (1) Acute respiratory failure with hypoxia Code(s): J96.01 - ACUTE RESPIRATORY FAILURE WITH HYPOXIA Status: Acute Plan: Continue SIMV FIO2 40%, RR 18, continue slow wean as clinically tolerated (2) Bacterial pneumonia Code(s): J15.9 - UNSPECIFIED BACTERIAL PNEUMONIA Status: Acute Plan: Persistent patchy infiltrates, continue Cefepime/Solumedrol --bl cx of 14th - no sig growth other than micrococcus species - skin contamination. (5) Severe sepsis--resolved Code(s): A41.9 - SEPSIS, UNSPECIFIED ORGANISM; R65.20 - SEVERE SEPSIS WITHOUT SEPTIC SHOCK Status: Acute (3) Hypokalemia Code(s): E87.6 - HYPOKALEMIA Status: Acute Plan: Improved, serial K+ monitoring (4) HTN (hypertension) Code(s): I10 - ESSENTIAL (PRIMARY) HYPERTENSION Status: Chronic Qualifiers: Hypertension type: essential hypertension Qualified Code(s): I10 - Essential (primary) hypertension Accelerated HTN - on sedation - and on cardizem 360mg 25th Leukocytosis, fever fw on the kalen -cefepime -added vancomycine given fever and high wbcs -DDx - Vent ass'd PNA -a s CXR may take time to show up the changes. -cxr - b/l stable opacity -ua benign Hypernatremia -switch for IV meds from NS to 1/2 NS -free water w.. TF -maintainance fluid w.. -start D5
[2019-12-30] MEDS ORDERED: Vancomycin HCl 1.25 GM in Sodium Chloride 0.9% 250 ML 250 ML IVPB SCH (15:00)
[2019-12-30] MEDS ORDERED: SODIUM CHLORIDE 0.45% IVPB SCH (15:15)
[2019-12-30] MEDS ORDERED: NICARDIPINE IVPB SCH (15:15)
[2019-12-30 15:54] VITALS: BP 126/74
[2019-12-30] MEDS: DEXTROSE 5% IVPB SCH (16:27)
[2019-12-30] MEDS: WATER IVPB SCH (16:27)
[2019-12-30] MEDS: VANCOMYCIN HCL IVPB SCH (16:27)
--- NOTE | 2019-12-30 18:04 | PDOC.CPN ---
- Subjective Date: 12/30/19 Time: 18:02 Interval history: Remains sedated intubated. - Review of Systems ROS unobtainable: due to endotracheal tube - Objective Allergies/Adverse Reactions: Allergies Allergy/AdvReac Type Severity Reaction Status Date / Time moxifloxacin HCl Allergy Hives Verified 06/13/16 12:35 [From Avelox] Visit Medications: Current Medications Acetaminophen (Tylenol) 650 mg PO Q4H PRN PRN Reason: Headache/Fever/Mild Pain (1-3) Last Admin: 12/30/19 12:52 Dose: 650 mg Albuterol/Ipratropium (Duoneb) 3 ml IPPB [id number] [facility] Last Admin: 12/30/19 13:55 Dose: 3 ml Atorvastatin Calcium (Lipitor) 20 mg PO DAILY [facility] Last Admin: 12/30/19 09:49 Dose: 20 mg Bisacodyl (Dulcolax) 10 mg ND Q8H PRN PRN Reason: Constipation Last Admin: 12/27/19 08:17 Dose: 10 mg Cholecalciferol (Vitamin D3) 1,000 units PO DAILY [facility] Last Admin: 12/30/19 09:49 Dose: 1,000 units Diltiazem HCl (Cardizem Cd) 360 mg PO DAILY [facility] Last Admin: 12/30/19 09:49 Dose: 360 mg Enoxaparin Sodium (Lovenox) 30 mg SC 0900 [facility] Last Admin: 12/30/19 09:48 Dose: 30 mg Finasteride (Proscar) 5 mg PO DAILY [facility] Last Admin: 12/30/19 09:49 Dose: 5 mg Hydralazine HCl (Apresoline) 10 mg SLOW IVP Q6H PRN PRN Reason: SBP >150 Last Admin: 12/29/19 03:39 Dose: 10 mg Dextrose/Water (D5w) 1,000 mls @ 0 mls/hr IV .Q0M [facility] Cefepime HCl 2 gm/ Sodium (Chloride) 100 mls @ 200 mls/hr IVPB Q12HR [facility] Last Admin: 12/30/19 09:48 Dose: 100 mls Fentanyl Citrate 2,000 mcg/ (Sodium Chloride) 100 mls @ 0 mls/hr IV INF [facility]; Protocol Stop: 01/29/20 06:47 Last Admin: 12/30/19 17:49 Dose: 100 mls Fentanyl Citrate (Fentanyl Bolus) 250 mls @ 0 mls/hr IVPB PRN PRN PRN Reason: Breakthrough pain/agitation Stop: 01/29/20 06:47 Nicardipine HCl 25 mg/ Sodium (Chloride) 250 mls @ 0 mls/hr IVPB INF [facility]; Protocol Vancomycin HCl 1.25 gm/ (Dextrose/Water) 250 mls @ 166.667 mls/hr IVPB 0400, 1600 [facility] Last Admin: 12/30/19 16:27 Dose: 250 mls Loratadine (Claritin) 10 mg PO DAILY [facility] Last Admin: 12/30/19 09:49 Dose: 10 mg Lorazepam (Ativan) 2 mg SLOW IVP Q1H PRN PRN Reason: Breakthrough agitation Stop: 01/29/20 06:47 Methylprednisolone Sodium Succinate (Solu-Medrol) 20 mg IVP Q6HR [facility] Last Admin: 12/30/19 18:01 Dose: 20 mg Metoclopramide HCl (Reglan) 10 mg PO ACHS [facility] Last Admin: 12/30/19 16:28 Dose: 10 mg Miscellaneous Medication (Pharmacy To Dose) 1 each IVPB PRN PRN PRN Reason: Pharmacy to dose Morphine Sulfate (Morphine) 2 mg SLOW IVP Q1H PRN PRN Reason: BREAKTHROUGH PAIN/Agitation Stop: 01/29/20 06:47 Ondansetron HCl (Zofran Odt) 4 mg PO Q6H PRN PRN Reason: Nausea/Vomiting Pantoprazole Sodium (Protonix) 40 mg PER TUBE DAILY [facility] Last Admin: 12/30/19 09:49 Dose: 40 mg Pregabalin (Lyrica) 400 mg PO BID [facility] Last Admin: 12/30/19 09:49 Dose: 400 mg Propofol (Diprivan) 1,000 mg IV INF PRN; Protocol PRN Reason: TO ACHIEVE GOAL RASS Stop: 01/29/20 06:47 Last Admin: 12/30/19 16:19 Dose: 1,000 mg Propofol (Diprivan Bolus) 20 mg IV Q5MIN PRN PRN Reason: BREAKTHROUGH AGITATION Stop: 01/29/20 06:47 Rocuronium [place] (Zemuron) 100 mg IVP Q1H PRN PRN Reason: Agitation Last Admin: 12/23/19 08:22 Dose: 100 mg Senna/Docusate Sodium (Senokot S) 2 tab PO BID PRN PRN Reason: Constipation Sodium Chloride (Normal Saline Pf) 10 ml FS PRN PRN PRN Reason: RECONSTITUTION Sodium Chloride (Flush - Normal Saline) 10 ml IVF Q12HR [facility] Last Admin: 12/30/19 09:51 Dose: 10 ml Sodium Chloride (Flush - Normal Saline) 10 ml IVF PRN PRN PRN Reason: Saline Flush Venlafaxine HCl (Effexor) 75 mg PO DAILY [facility] Last Admin: 12/30/19 09:48 Dose: 75 mg Vital Signs & Weight: Vital Signs Temp Pulse Pulse Pulse Resp BP BP 12/30/19 15:35 91 90 126/74 12/30/19 15:14 74 12/30/19 13:59 16 12/30/19 13:55 65 134/76 12/30/19 12:00 100.3 F H 17 12/30/19 10:49 82 136/81 12/30/19 10:00 18 12/30/19 08:00 23 H 12/30/19 07:25 72 141/76 H 12/30/19 07:00 99.9 F H BP Pulse Ox Pulse Ox 12/30/19 15:35 125/73 91 L 12/30/19 15:14 12/30/19 13:59 12/30/19 13:55 12/30/19 12:00 12/30/19 10:49 12/30/19 10:00 12/30/19 08:00 94 L 12/30/19 07:25 12/30/19 07:00 Admit Weight 190 lb Weight 195 lb 1.745 oz - Physical Exam General: other (S/I) HEENT: normocephaly Neck: supple neck Cardiac: regular rate and rhythm Lungs: scattered rhonchi Neuro: no lateralizing findings Abdomen: non-tender Extremities: no edema Skin: clear Musculoskeletal: no pain - Labs Result Diagrams: 12/30/19 05:44 12/30/19 08:37 Troponin/CKMB CK-MB (CK-2) 0.8 ng/mL (0-6.6) 12/19/19 10:15 Troponin I 0.022 ng/mL (< 0.028) 12/19/19 17:24 - Telemetry Sinus rhythms and dysrhythmias: sinus rhythm - Assessment/Plan Assessment/Plan: 1. Acute hypoxic respiratory insufficiency 2. Pulmonary hemorrhage 3. Pneumonia 4. HTN, improved. 5. Hypokalemia. 6. Demand ischemia. 7. Pulmonary fibrosis. PLAN: - CV stable. - Continue supportive care. - Will sign off. Please call with any questions.
--- NOTE | 2019-12-30 19:00 | PRG ---
DATE OF SERVICE: 12/30/2019 SUBJECTIVE: David James had a temperature spike to 101. Temperature maximum today has been 100.3. Cultures were done. One blood culture grew Micrococcus from the , but apparently, cultures, I am told were done last night, nothing has been reported as positive so far. OBJECTIVE: LUNGS: Clear. HEART: Regular rhythm. ABDOMEN: Soft. EXTREMITIES: Without edema. LABORATORY DATA: He has a white count of 24, hemoglobin 10.5, platelets 193. He only has 6% bands on his peripheral smear. Sodium 147, potassium 4.8, chloride 110, bicarb 31, BUN 50, creatinine 0.82. IMPRESSION AND PLAN: Respiratory failure associated with alveolar hemorrhage combined with pneumonia and uncontrolled hypertension. I will order Doppler of his legs in the morning to make sure coming from lower extremity DVT. He is still weak, and when he is not sedated, he gets very tachypneic. His static compliance is still around 25, so I am not optimistic he can wean without a tracheostomy. We will continue critical care support. I met with the and answered all of her questions. Job ID: [id number]
--- NOTE | 2019-12-30 19:51 | ULT ---
BILATERAL LOWER EXTREMITY VENOUS ULTRASOUND: 12/30/19 COMPARISON: None. HISTORY: Fever and bilateral lower extremity pain/edema. TECHNIQUE: Multiplanar quiles scale and color Doppler images were obtained in a bilateral lower extremity deep emily ous ultrasound. Spectral analysis of the Doppler waveforms were performed. FINDINGS: The bilateral common femoral veins, profunda femoral veins, superficial femoral veins, and popliteal veins are normal in appearance without visible thrombus. These vessels demonstrate normal compression , flow, and augmentation. The posterior tibial veins and greater saphenous veins are also patent. IMPRESSION: No evidence of DVT. POS: C
[2019-12-30] MEDS ORDERED: Vancomycin HCl 1 GM in Premix Bag 1 BAG IVPB SCH (21:00)
[2019-12-31 02:57] LABS: Base Excess (BEa) 6.1 mEq/L (-2.0 to +3.0); CO2 Tension 52.9 mmHg (35.0-45.0); Calcium, Ionized 1.16 mmol/L (1.12-1.30); Carboxyhemoglobin (COHb) 1.1 gm% (0.0-3.0); Hemoglobin (Hb) 11.5 g/dL (14.0-18.0); Potassium - ABG Lab 4.64 mmol/L (3.70-5.30)
[2019-12-31 03:02] LABS: O2 Tension (PaO2) 52.7 mmHg (> 70.0)
[2019-12-31 03:06] LABS: ALV-art Gradient 380.275 (0-20); Puncture Site RRA
[2019-12-31] MEDS: DEXTROSE 5% IVPB SCH (03:59)
[2019-12-31] MEDS: VANCOMYCIN HCL IVPB SCH (03:59)
[2019-12-31] MEDS: WATER IVPB SCH (03:59)
[2019-12-31 04:35] VITALS: TEMP 99.5
[2019-12-31 04:54] LABS: Band 13 % (5-11); Hemoglobin 11.1 g/dL (14.0-18.0); MDiff Complete? YES; Mean Corpuscular HGB CONC 32.9 g/dL (32.0-36.0); Mean Corpuscular Hemoglobin 32.2 pg (27.0-31.0); Mean Corpuscular Volume 97.9 fL (78.0-98.0); Mean Platelet Volume 8.7 fL (7.4-10.4); Metamyelocyte 1 % (0-0); Monocytes 2 % (0-10); Neutrophil 84 % (42-75); Platelet Count 156 thou/uL (130-400); Platelet Morphology Comment Appears Adequate; RBC Distribution Width 14.1 % (11.5-14.5); Red Blood Cell (RBC) Count 3.43 mill/uL (4.70-6.10); White Blood Cell (WBC) Count 24.2 thou/uL (4.8-10.8)
[2019-12-31] MEDS: Rocuronium Bromide 10 MG/ML (10ML VIAL) IVP PRN ×2 (04:59→06:45)
[2019-12-31] MEDS: Propofol 1,000 MG/100 ML VIAL IV PRN (04:59)
[2019-12-31 05:04] LABS: Anion Gap 9 mmol/L (10-20); BUN (Urea Nitrogen) 49 mg/dL (8.4-25.7); Calc. Creatinine Clearance 99 mL/min (70-130); Calcium 8.1 mg/dL (7.8-10.44); Carbon Dioxide 33 mmol/L (23-31); Chloride 107 mmol/L (98-107); Estimated GFR-MDRD Greater than 90; Glucose 174 mg/dL (83-110); Potassium 4.7 mmol/L (3.5-5.1); Sodium 144 mmol/L (136-145)
[2019-12-31] MEDS ORDERED: Furosemide 40 MG/4 ML VIAL SLOW IVP SCH (05:30)
[2019-12-31] MEDS ORDERED: methylPREDNISolone Sod Succ 40 MG VIAL IVP SCH ×2 (05:30→12:00)
[2019-12-31] MEDS ORDERED: Sodium Bicarb 50 MEQ/50 ML Abboject 8.4% SYRINGE ONE (07:00)
[2019-12-31] MEDS ORDERED: Norepinephrine 8 MG/0.9% NS 0 ML ONE (07:04)
[2019-12-31] MEDS ORDERED: Norepinephrine 8 MG/0.9% NS 250 ML ONE (07:05)
[2019-12-31 07:17] LABS: Actual Bicarbonate (HCO3a) 27.9 mEq/L (22-28); Base Excess (BEa) -3.8 mEq/L (-2.0 to +3.0); Calcium, Ionized 1.11 mmol/L (1.12-1.30); Carboxyhemoglobin (COHb) 1.5 gm% (0.0-3.0); Hemoglobin (Hb) 12.1 g/dL (14.0-18.0); Potassium - ABG Lab 4.76 mmol/L (3.70-5.30)
[2019-12-31] MEDS ORDERED: Sodium Bicarb 50 MEQ/50 ML VIAL ONE ×2 (07:21→07:28)
[2019-12-31] MEDS ORDERED: EPINEPHrine 1 MG/ML AMP ONE ×2 (07:27→08:19)
[2019-12-31] MEDS ORDERED: Sodium Bicarbonate 150 MEQ in Dextrose 5% in Water 1,000 ML IV SCH (07:30)
[2019-12-31] MEDS ORDERED: EPINEPHrine 4 MG in Dextrose 5% in Water 250 ML IV SCH (07:30)
--- NOTE | 2019-12-31 07:41 | RAD ---
XR Chest 1 View History: Chest pain Comparison: Radiograph prior day Findings: Patient is intubated endotracheal tube tip the level of the clavicles. Enteric tube tip bel ow diaphragm although out of field of view. Worsening parenchymal opacities throughout the lungs. Moderate effusions. Old left-sided rib fractures. Impression: Worsening lung aeration suggesting progressive pneumonia.
[2019-12-31] MEDS ORDERED: EPINEPHrine 1 MG/10 ML Abboject SYRINGE ONE (08:19)
[2019-12-31 11:26] LABS: pH, Arterial 7.09 (7.35-7.45)
[2019-12-31 11:27] LABS: O2 Tension (PaO2) 30.8 mmHg (> 70.0); Puncture Site RF
--- NOTE | 2019-12-31 21:11 | PRG ---
DATE OF SERVICE: 12/31/2019 David James apparently developed recurrent pulmonary hemorrhage last night. progressive metabolic acidosis. Coded multiple times, this morning was resuscitated. Dr. Sanchez assisted this and I did as well. Chest radiograph showed a dense alveolar infiltrates bilaterally. Met with the after the code and answered all the questions. He subsequently was pronounced and further resuscitative efforts were deemed futile. Critical care time was 60 minutes between acid-base resuscitation and the code itself. The body was released to the home. Family did not want an autopsy. Job ID: [id number]
--- NOTE | 2020-01-01 01:11 | DIS ---
DATE OF ADMISSION: 12/19/2019 DATE OF DISCHARGE: 12/31/2019 DISCHARGE DIAGNOSES: 1. Acute respiratory failure with hypoxia. 2. Bacterial pneumonia. 3. Severe sepsis secondary to pneumonia without septic shock. 4. Hypokalemia. 5. Hypertension. 6. Leukocytosis and fever. 7. Hypernatremia. HOSPITAL COURSE: Please see the history and physical documentation for full details and progress notes for hospital course. Briefly, this is a 74-year-old male presented with respiratory failure. He was hospitalized in November at [place] and discharged with Augmentin. His presentation at [place] revealed severe sepsis secondary to respiratory failure and pneumonia. He was intubated, initially started on ceftriaxone, Zithromax and escalated to vancomycin and cefepime. He probably had a vent associated pneumonia as well. He had alveolar hemorrhage combined with pneumonia and uncontrolled hypertension. On morning, patient coded and after 3 epi, 1 amp of bicarb as well as epinephrine started as a drip oat 100 mcg/minute did not revive him. He went into asystole at 8:08. Primary cause of his demise pulmonary hemorrhage secondary to pneumonia and septic shock. Secondary cause is septic shock secondary to pneumonia. Job ID: [id number] MTDD
== END 2019-12-31 08:08 | disposition expired | DRG 870 ==
LOC: ERS 09:56 → IMCU/EMU 16:41 → CCU 23:32
PROVIDERS: ADMIT Student in an Organized Health Care Education/Training Program; ATTEND Internal Medicine
PROC: 5A09357 Assistance with Respiratory Ventilation, Less than 24 Consecutive Hours, Continuous Positive Airway Pressure (ICD-10-PCS; principal; 2019-12-19)
PROC: 5A1955Z Respiratory Ventilation, Greater than 96 Consecutive Hours (ICD-10-PCS; 2019-12-20)
PROC: 0BH17EZ Insertion of Endotracheal Airway into Trachea, Via Natural or Artificial Opening (ICD-10-PCS; 2019-12-20)
PROC: 3E033XZ Introduction of Vasopressor into Peripheral Vein, Percutaneous Approach (ICD-10-PCS; 2019-12-31)
DX: A41.9 Sepsis, unspecified organism (principal); J96.01 Acute respiratory failure with hypoxia; I21.A1 Myocardial infarction type 2; J15.9 Unspecified bacterial pneumonia; J44.0 Chronic obstructive pulmonary disease with (acute) lower respiratory infection; R04.89 Hemorrhage from other sites in respiratory passages; E87.0 Hyperosmolality and hypernatremia; J84.9 Interstitial pulmonary disease, unspecified; E87.2 Acidosis; R65.20 Severe sepsis without septic shock; F32.9 Major depressive disorder, single episode, unspecified; N40.0 Benign prostatic hyperplasia without lower urinary tract symptoms; E87.6 Hypokalemia; I10 Essential (primary) hypertension; E78.5 Hyperlipidemia, unspecified; F43.10 Post-traumatic stress disorder, unspecified; J30.2 Other seasonal allergic rhinitis; Z88.1 Allergy status to other antibiotic agents; Z99.81 Dependence on supplemental oxygen; Z79.899 Other long term (current) drug therapy; Z87.891 Personal history of nicotine dependence; Z85.46 Personal history of malignant neoplasm of prostate; Z90.49 Acquired absence of other specified parts of digestive tract
CPT/HCPCS: 36415; 36416; 71045; 80048; 80053; 80202; 81001; 81003; 81015; 82553; 82805; 83520; 83605; 83880; 84484; 85007; 85025; 85027; 86256; 87040; 87070; 87077; 87149; 87186; 87205; 92950; 93005; 93306; 93970; 94002; 94003; 94640; 94660; 94760; 96365; 96375; 99292; C9113; J0171; J0360; J0456; J0692; J0696; J1650; J1940; J2060; J2250; J2270; J2310; J2704; J2920; J2930; J3010; J3370; J3480; J3490; J7050; J7070; J7620